=== PATIENT | female | born 1985 ===

== ENCOUNTER → 2020-12-13 15:36 | Outpatient (BNVA) | payer OTHER, SELFPAY | PROVIDERS: PCP Internal Medicine; Visit Provider Physician Assistant ==

== ENCOUNTER → 2020-12-21 09:44 | Outpatient (BNVA) | payer OTHER, SELFPAY | PROVIDERS: PCP Internal Medicine; Visit Provider Surgery ==

== ENCOUNTER 2020-12-23 13:39 | Outpatient (REF) | payer OTHER, SELFPAY ==
--- NOTE | ~2020-12-23 | XR_ITS ---
EXAMINATION: XR CHEST CLINICAL INFORMATION: Obesity COMPARISON: Previous chest x-ray September 2006 TECHNIQUE: 2 views of the chest were obtained. FINDINGS: No significant abnormality is noted involving the heart, lungs, mediastinum, bony thorax or soft tissues. XR/XR chest 2V IMPRESSION: Unremarkable examination.
--- NOTE | 2020-12-23 13:49 | ECG_ITS ---
Test Reason : OBESITY Blood Pressure : / mmHG Vent. Rate : 071 BPM Atrial Rate : 071 BPM P-R Int : 128 ms QRS Dur : 084 ms QT Int : 426 ms P-R-T Axes : -09 011 028 degrees QTc Int : 462 ms Normal sinus rhythm Normal ECG No previous ECGs available Referred By: Imer Rubio Electronically Signed By:NAYELY SUTTON MD
[2020-12-23 14:18] LABS: MANUAL DIFF FLAG NO
[2020-12-23 14:28] LABS: Basophils Absolute Auto 0.1 X10*3/uL (0.0-0.2); Basophils Percent Auto 0.5 % (0-2); Eosinophils Absolute Auto 0.2 X10*3/uL (0.0-0.4); Eosinophils Percent Auto 1.9 % (0-4); Hematocrit 34.3 % (37-47); Hemoglobin 11.2 g/dl (12.0-16.0); Imm Gran Abs Auto 0.02 X10*3/uL (0.00-0.03); Imm Gran Pct Auto 0.2 % (0.0-0.4); Lymphocytes Absolute Auto 4.1 X10*3/uL (1.2-4.9); Lymphocytes Percent Auto 44.1 % (20-40); Mean Corpuscular HGB Conc 32.7 g/dl (31.0-35.0); Mean Corpuscular Hemoglobin 28.4 pg (27.0-33.0); Mean Corpuscular Volume 86.8 fL (80-98); Mean Platelet Volume 9.3 fL (9.4-12.3); Monocytes Absolute Auto 0.4 X10*3/uL (0.1-1.2); Neutrophils Absolute Auto 4.6 X10*3/uL (2.0-8.3); Neutrophils Percent Auto 49.3 % (45-73); Platelet Count 418 X10*3/uL (160-400); Red Blood Count 3.95 X10*6/uL (4.20-5.50); Red Cell Distribution Width 13.4 % (11.0-16.0); White Blood Count 9.3 X10*3/uL (4.8-10.8)
[2020-12-23 14:32] LABS: Estimated Average Glucose 117 mg/dL; Hemoglobin A1c % 5.7 %
[2020-12-23 14:50] LABS: Alanine Aminotransferase 29 U/L (0-31); Albumin Level 4.2 g/dL (3.5-5.0); Alkaline Phosphatase 130 U/L (39-117); Anion Gap 12 (12-20); Aspartate Amino Transferase 18 U/L (5-31); Bilirubin Total 0.4 mg/dL (0.0-1.0); Blood Urea Nitrogen 16 mg/dL (9-16); C Reactive Protein 1.04 mg/dL (< or = 0.50); Calcium 9.4 mg/dL (8.4-10.2); Carbon Dioxide 26 mmol/L (22-29); Chloride 106 mmol/L (96-108); Cholesterol 178 mg/dL; Estimated Glomerular Filt Rate > 60; Glucose Random 85 mg/dL (60-115); HDL Cholesterol 44 mg/dL; Iron 44 mcg/dL (30-160); LDL Cholesterol Calculated 114 mg/dl; Percent Iron Saturation 11 % (15-50); Potassium 4.4 mmol/L (3.3-5.1); Sodium 140 mmol/L (135-145); Total Iron Binding Capacity 402 mcg/dL (228-428); Total Protein 7.4 g/dL (6.5-8.0); Triglycerides 100 mg/dL; Unsaturated Iron Binding 358 ug/dL
[2020-12-23 15:12] LABS: Ferritin 25 ng/mL (10-122); TSH reflex Free T4 1.04 uIU/mL (0.32-4.0); Vitamin D 25-OH Total 9.1 ng/mL (>30)
[2020-12-23 17:27] LABS: Vitamin B12 664 pg/mL (200-900)
[2020-12-24 10:02] LABS: Insulin Level Total 14.7 uIU/mL
[2020-12-24 14:52] LABS: H Pylori Breath Test DETECTED (NOT DETECTED)
[2020-12-26 23:36] LABS: Zinc 74 mcg/dL (60-130)
[2020-12-27 08:02] LABS: Calcium (PTHI) 9.3 mg/dL (8.6-10.2); PTHI 123 pg/mL (14-64)
[2020-12-28 13:27] LABS: Vitamin A 31 mcg/dL (38-98)
[2021-01-05 10:08] LABS: Vitamin B1 8 nmol/L (8-30)
== END 2020-12-23 13:40 | disposition home or self-care (01) ==
LOC: HO.LAB 13:39
PROVIDERS: Physician Assistant; PCP Internal Medicine; Visit Provider Surgery
DX: Z01.818 Encounter for other preprocedural examination (principal); E66.01 Morbid (severe) obesity due to excess calories; Z11.0 Encounter for screening for intestinal infectious diseases
CPT/HCPCS: 36415; 71046; 80053; 80061; 82306; 82607; 82728; 82746; 83013; 83036; 83525; 83540; 83970; 84425; 84443; 84590; 84630; 85025; 86140; 93005

== ENCOUNTER → 2020-12-29 13:58 | Outpatient (BNVA) | payer OTHER, SELFPAY | PROVIDERS: PCP Internal Medicine; Referring Provider Internal Medicine; Visit Provider Physician Assistant ==

== ENCOUNTER → 2021-01-05 13:40 | Outpatient (BNVA) | payer OTHER, SELFPAY | PROVIDERS: PCP Internal Medicine; Visit Provider Physician Assistant ==

== ENCOUNTER 2021-01-09 09:55 | Outpatient (REF) | payer OTHER, SELFPAY ==
--- NOTE | ~2021-01-09 | US_ITS ---
EXAMINATION: US COMPLETE ABDOMEN WITH LIVER ELASTOGRAPHY CLINICAL INFORMATION: Moderate/severe obesity due to excess calories. COMPARISON: None. TECHNIQUE: Real-time imaging of the abdominal viscera. Noninvasive ultrasound liver fibrosis assessment is performed using Lit ElastPQ point quantification shear wave elastography (pSWE) with a C5-2 MHz transducer. Multiple elastography samples are obtained. FINDINGS: PANCREAS: The head and the body of the pancreas are homogeneous in echotexture. The tail is obscured by overlying gas. ABDOMINAL AORTA: The proximal, middle, and distal aortic segments are normal in caliber. INFERIOR VENA CAVA: Visualized portions are normal. LIVER: The liver demonstrates normal size, contour and increased echogenicity. No focal lesion or intrahepatic biliary duct dilatation. The right lobe measures 18.3 cm in length. The left lobe measures 10.5 cm in length. Portal flow is hepatopedal. Shear wave liver elastography median stiffness is 1.34 m/s (reference: normal median stiffness is 1.3 m/s or less). IQR/median stiffness to assess sampling precision is 0.17 (reference: good quality data set is IQR/median stiffness of 0.15 or less). GALLBLADDER: The gallbladder has been surgically removed. COMMON BILE DUCT: Normal in caliber measuring 10.6 cm in diameter. RIGHT KIDNEY: Normal. No hydronephrosis. No renal calculi or focal parenchymal lesions. The kidney measures 14.4 cm in maximum dimension. LEFT KIDNEY: Normal. No hydronephrosis. No renal calculi or focal parenchymal lesions. The kidney measures 12.8 cm in maximum dimension. SPLEEN: Normal. The spleen measures 11.3 cm in maximum dimension. FREE FLUID: None. US/US abdomen comp w elastography IMPRESSION: 1. Diffuse hepatic steatosis without focal lesion. 2. The gallbladder has been surgically removed. 3. Liver elastography: The median stiffness is 1.34 suggestive of high normal. REFERENCE: Society of Radiologists in Ultrasound Liver Stiffness Thresholds (2020): LIVER STIFFNESS THRESHOLDS: *Liver Stiffness equal or less than 1.3 m/s: High probability of being normal. *Liver Stiffness less than 1.7 m/s: In the absence of other known clinical signs, rules out compensated advanced chronic liver disease. *Liver Stiffness 1.7-2.1 m/s: Suggestive of compensated advanced chronic liver disease but need further test for confirmation. *Liver Stiffness over 2.1 m/s: Rules in compensated advanced chronic liver disease. *Liver Stiffness over 2.4 m/s: Suggestive of clinically significant portal hypertension. QUALITY OF DATA SET: *IQR/Median value equal or less than 0.15 implies a quality data set. *IQR/Median value over 0.15 implies a poor quality data set. SIGNIFICANT CHANGE FROM PRIOR EXAM: Significant change if liver stiffness measurement is 10% or greater from prior exam. OTHER CONSIDERATIONS: The stage of liver fibrosis may be overestimated in the setting of acute hepatitis, liver inflammation, elevated liver function tests, hepatic vascular congestion, obstructive cholestasis, non-fasting state, and infiltrative diseases such as amyloidosis and lymphoma. In some patients with NAFLD, the liver stiffness thresholds for compensated advanced chronic liver disease may be lower. In causes other than viral hepatitis and NAFLD, liver stiffness thresholds are not well established.
--- NOTE | ~2021-01-09 | FL_ITS ---
EXAMINATION: XR GI SERIES CLINICAL INFORMATION: Obesity COMPARISON: None TECHNIQUE: Upper GI was performed using thin and thick barium and effervescent granules. MAZA dimension 5 to 10 minutes was performed for visualization of the duodenum. FINDINGS: Esophageal motility is normal. No hiatal hernia or reflux is seen. There is slightly delayed gastric emptying. The duodenum was not visualized on early fluoroscopic images. The duodenum is visualized on 5 to 10 minute MAZA imaging and appears normal. No mass, ulcer, fold thickening or stricture is seen. FLUOROSCOPY TIME: 0.7 minutes DOSE AREA PRODUCT: 10 clarke per centimeter squared. 21 saved fluoroscopic images. FL/FL upper GI series IMPRESSION: Slightly delayed gastric emptying otherwise unremarkable exam.
== END 2021-01-09 09:56 | disposition home or self-care (01) ==
LOC: HO.US 09:55
PROVIDERS: Visit Provider Surgery
DX: Z01.818 Encounter for other preprocedural examination (principal); E66.01 Morbid (severe) obesity due to excess calories; K21.9 Gastro-esophageal reflux disease without esophagitis
CPT/HCPCS: 74240; 76705; 76981

== ENCOUNTER → 2021-01-13 08:02 | Outpatient (BNVA) | payer OTHER, SELFPAY | PROVIDERS: PCP Internal Medicine; Visit Provider Surgery ==

== ENCOUNTER → 2021-01-18 08:25 | Outpatient (BNVA) | payer OTHER, SELFPAY | PROVIDERS: PCP Internal Medicine; Visit Provider Dietitian, Registered | DX: E66.01 Morbid (severe) obesity due to excess calories (principal); Z68.42 Body mass index [BMI] 45.0-49.9, adult | CPT/HCPCS: 97802 ==

== ENCOUNTER → 2021-01-19 12:57 | Outpatient (BNVA) | payer OTHER, SELFPAY | PROVIDERS: PCP Internal Medicine; Visit Provider Physician Assistant ==

== ENCOUNTER → 2021-01-27 14:59 | Outpatient (BNVA) | payer OTHER, SELFPAY | PROVIDERS: PCP Internal Medicine; Visit Provider Physician Assistant ==

== ENCOUNTER → 2021-02-03 13:55 | Outpatient (BNVA) | payer OTHER, SELFPAY | PROVIDERS: PCP Internal Medicine; Visit Provider Physician Assistant ==

== ENCOUNTER → 2021-02-07 08:11 | Outpatient (BNVA) | payer OTHER, SELFPAY | PROVIDERS: PCP Internal Medicine; Visit Provider Dietitian, Registered ==

== ENCOUNTER → 2021-02-10 06:49 | Outpatient (BNVA) | payer OTHER, SELFPAY | PROVIDERS: PCP Internal Medicine; Visit Provider Surgery ==

== ENCOUNTER 2021-03-10 15:03 | Outpatient (REF) | payer OTHER, SELFPAY ==
[2021-03-11 13:42] LABS: H Pylori Breath Test DETECTED (NOT DETECTED)
== END 2021-03-10 15:04 | disposition home or self-care (01) ==
LOC: HO.LNP 15:03
PROVIDERS: PCP Internal Medicine; Visit Provider Physician Assistant
DX: E66.01 Morbid (severe) obesity due to excess calories (principal); B96.81 Helicobacter pylori [H. pylori] as the cause of diseases classified elsewhere; K27.9 Peptic ulcer, site unspecified, unspecified as acute or chronic, without hemorrhage or perforation
CPT/HCPCS: 83013

== ENCOUNTER → 2021-03-14 08:10 | Outpatient (BNVA) | payer OTHER, SELFPAY | PROVIDERS: PCP Internal Medicine; Visit Provider Dietitian, Registered ==

== ENCOUNTER → 2021-03-17 07:32 | Outpatient (BNVA) | payer OTHER, SELFPAY | PROVIDERS: PCP Internal Medicine; Visit Provider Surgery ==

== ENCOUNTER → 2021-03-20 08:14 | Outpatient (BNVA) | payer OTHER, SELFPAY | PROVIDERS: PCP Internal Medicine; Visit Provider Dietitian, Registered | DX: E66.01 Morbid (severe) obesity due to excess calories (principal); Z68.42 Body mass index [BMI] 45.0-49.9, adult | CPT/HCPCS: 97803 ==

== ENCOUNTER 2021-04-05 13:46 | Outpatient (REF) | payer OTHER, SELFPAY ==
[2021-04-06 14:56] LABS: H Pylori Breath Test NOT DETECTED (NOT DETECTED)
== END 2021-04-05 13:47 | disposition home or self-care (01) ==
LOC: CF 13:46
PROVIDERS: Visit Provider Physician Assistant
DX: A04.8 Other specified bacterial intestinal infections (principal)
CPT/HCPCS: 83013

== ENCOUNTER → 2021-04-17 07:27 | Outpatient (BNVA) | payer OTHER, SELFPAY | PROVIDERS: Visit Provider Surgery ==

== ENCOUNTER → 2021-04-24 07:08 | Outpatient (BNVA) | payer OTHER, SELFPAY | PROVIDERS: Visit Provider Surgery ==

== ENCOUNTER → 2021-04-28 13:25 | Outpatient (BNVA) | payer OTHER, SELFPAY | PROVIDERS: PCP Internal Medicine; Visit Provider Physician Assistant ==

== ENCOUNTER 2021-05-04 06:11 | Inpatient (IN) | payer OTHER, SELFPAY ==
[2021-04-25 13:11] VITALS: BMI 46.0
[2021-04-25 13:24] LABS: MANUAL DIFF FLAG NO
[2021-04-25 13:33] LABS: INTERNATIONAL NORM RATIO 1.1 (0.9-1.1); Prothrombin Time 12.3 SEC (9.9-13.0)
[2021-04-25 13:34] LABS: Basophils Absolute Auto 0.1 X10*3/uL (0.0-0.2); Basophils Percent Auto 0.5 % (0-2); Eosinophils Absolute Auto 0.2 X10*3/uL (0.0-0.4); Eosinophils Percent Auto 1.8 % (0-4); Hematocrit 34.8 % (37-47); Hemoglobin 11.3 g/dl (12.0-16.0); Imm Gran Abs Auto 0.02 X10*3/uL (0.00-0.03); Imm Gran Pct Auto 0.2 % (0.0-0.4); Lymphocytes Absolute Auto 4.3 X10*3/uL (1.2-4.9); Lymphocytes Percent Auto 43.3 % (20-40); Mean Corpuscular HGB Conc 32.5 g/dl (31.0-35.0); Mean Corpuscular Hemoglobin 26.8 pg (27.0-33.0); Mean Corpuscular Volume 82.7 fL (80-98); Mean Platelet Volume 9.7 fL (9.4-12.3); Monocytes Absolute Auto 0.5 X10*3/uL (0.1-1.2); Monocytes Percent Auto 4.7 % (2-11); Neutrophils Percent Auto 49.5 % (45-73); Platelet Count 399 X10*3/uL (160-400); Red Blood Count 4.21 X10*6/uL (4.20-5.50)
[2021-04-25 13:36] LABS: Partial Thromboplastin Time 33.7 SEC (24.1-38.0)
[2021-04-25 13:49] LABS: Alanine Aminotransferase 22 U/L (0-31); Albumin Level 4.1 g/dL (3.5-5.0); Alkaline Phosphatase 95 U/L (39-117); Anion Gap 9 (12-20); Aspartate Amino Transferase 13 U/L (5-31); Bilirubin Total 0.7 mg/dL (0.0-1.0); Blood Urea Nitrogen 11 mg/dL (9-16); C Reactive Protein 0.67 mg/dL (< or = 0.50); Calcium 9.3 mg/dL (8.4-10.2); Carbon Dioxide 25 mmol/L (22-29); Chloride 108 mmol/L (96-108); Cholesterol 136 mg/dL; Estimated Glomerular Filt Rate > 60; Glucose Random 87 mg/dL (60-115); HDL Cholesterol 48 mg/dL; LDL Cholesterol Calculated 72 mg/dl; Potassium 4.3 mmol/L (3.3-5.1); Sodium 138 mmol/L (135-145); Total Protein 7.1 g/dL (6.5-8.0); Triglycerides 80 mg/dL
[2021-04-25 14:06] LABS: TSH reflex Free T4 1.42 uIU/mL (0.32-4.0)
[2021-04-25 14:30] LABS: Estimated Average Glucose 111 mg/dL; Hemoglobin A1c % 5.5 %
[2021-04-26 22:36] LABS: Insulin Level Total 12.1 uIU/mL
--- NOTE | 2021-05-03 07:55 | P.CONAN_ITS ---
Documented by User: Tanisha Veliz NP 05/03/21 07:56 HPI - Anesthesia Eval Consult details Narrative: 36yo F for Gastrectomy Sleeve, EGD, Poss Diaphragmatic Hernia, Poss Ventral Hernia, Poss open PMFSH Active Problems Active Problems: All Active Problems (Updated 04/25/21 @ 13:10 by Kari De Leon RN) Pre-op evaluation (Acute) Anemia (Acute) Vitamin D deficiency (Acute) Vitamin A deficiency (Acute) H pylori ulcer (Acute) H. pylori infection (Acute) Adjustment disorder, unspecified (Acute) DJD (degenerative joint disease) (Acute) Morbid obesity (Acute) Past Medical History Medical History COVID-19 vaccine series completed DJD (degenerative joint disease) Morbid obesity PONV (postoperative nausea and vomiting) Family History Family History Mother Diabetes Father No problems noted. Sister No problems noted. Sister No problems noted. Brother No problems noted. Brother No problems noted. Son No problems noted. Daughter No problems noted. Daughter No problems noted. Daughter No problems noted. Surgical History Surgical History Hx of cholecystectomy Hx of tubal ligation Social History Social History Are you a primary rn progressive care unit to a significant other at home: No Do you presently have visiting nurse or other home services: No Alcohol intake: current Alcohol intake frequency: holidays/special occasions only Patient Tobacco Use Status: Former Tobacco user Quit Date: age 17 Tobacco use type: Cigarette Use of substances other than those prescribed or required for medical reasons: No Have you been hit, kicked, punched, or otherwise hurt by someone within the past year? If so, by whom?: No Are you DNR?: No Advance Directives: No Advance Directives Information Provided: Yes Advance Directives on File: No Recently lost weight without trying: No How much weight loss: 34pounds or more Eating poorly because of decreased appetite: No Nutrition screen score: 4 Nutrition Risks: No Nutritional Risk Patient : No FDLMP: 04/07/21 : No Meds Allergies Allergy/AdvReac Type Severity Reaction Status Date / Time latex [Latex] Allergy Unknown ITCHY RASH Verified 04/25/21 12:15 Exam Exam Date and Time: May 03, 2021 0755 Height,Weight and Vital Signs: Height 5 ft 2 in Weight 114.305 kg Pertinent Lab Results Pertinent Lab Results: Laboratory Tests 04/25/21 04/25/21 04/25/21 12:50 12:50 12:50 WBC 10.0 RBC 4.21 Hgb 11.3 L Hct 34.8 L MCV 82.7 MCH 26.8 L MCHC 32.5 RDW 14.0 Plt Count 399 MPV 9.7 Immature Gran % (Auto) 0.2 Neut % (Auto) 49.5 Lymph % (Auto) 43.3 H Cavalier % (Auto) 4.7 Eos % (Auto) 1.8 Baso % (Auto) 0.5 Lymph # (Auto) 4.3 Cavalier # (Auto) 0.5 Eos # (Auto) 0.2 Baso # (Auto) 0.1 Abs Immat Gran (auto) 0.02 Absolute Neuts (auto) 5.0 Absolute Nucleated RBC 0.000 Nucleated RBC % (auto) 0.0 PT 12.3 INR 1.1 APTT 33.7 Sodium 138 Potassium 4.3 Chloride 108 Carbon Dioxide 25 Anion Gap 9 L BUN 11 Creatinine 0.60 Estim Creat Clear Calc 158.0 Estimated GFR > 60 Random Glucose 87 Estimat Average Glucose Hemoglobin A1c % Total Insulin Calcium 9.3 Total Bilirubin 0.7 AST 13 ALT 22 Alkaline Phosphatase 95 D C-Reactive Protein 0.67 H Total Protein 7.1 Albumin 4.1 Triglycerides 80 Cholesterol 136 D LDL Cholesterol, Calc 72 HDL Cholesterol 48 TSH 1.42 Blood Type Antibody Screen 04/25/21 04/25/21 04/25/21 12:50 12:50 12:50 WBC RBC Hgb Hct MCV MCH MCHC RDW Plt Count MPV Immature Gran % (Auto) Neut % (Auto) Lymph % (Auto) Cavalier % (Auto) Eos % (Auto) Baso % (Auto) Lymph # (Auto) Cavalier # (Auto) Eos # (Auto) Baso # (Auto) Abs Immat Gran (auto) Absolute Neuts (auto) Absolute Nucleated RBC Nucleated RBC % (auto) PT INR APTT Sodium Potassium Chloride Carbon Dioxide Anion Gap BUN Creatinine Estim Creat Clear Calc Estimated GFR Random Glucose Estimat Average Glucose 111 Hemoglobin A1c % 5.5 Total Insulin 12.1 Calcium Total Bilirubin AST ALT Alkaline Phosphatase C-Reactive Protein Total Protein Albumin Triglycerides Cholesterol LDL Cholesterol, Calc HDL Cholesterol TSH Blood Type O Positive Antibody Screen NEGATIVE Narrative Narrative: EKG 11/2020 Vent. Rate : 071 BPM ? ? Atrial Rate : 071 BPM ?? P-R Int : 128 ms? QRS Dur : 084 ms ? ? QT Int : 426 ms ? ? ? P-R-T Axes : -09 011 028 degrees ?? QTc Int : 462 ms ? Normal sinus rhythm Normal ECG No previous ECGs available Assessment and Plan Assessment Anesthesia Assessment: Chart Reviewed Documented by User: Carin Biggs MD 05/04/21 07:26 [facility] Past Medical History Medical History COVID-19 vaccine series completed DJD (degenerative joint disease) Morbid obesity PONV (postoperative nausea and vomiting) Family History Family History Mother Diabetes Father No problems noted. Sister No problems noted. Sister No problems noted. Brother No problems noted. Brother No problems noted. Son No problems noted. Daughter No problems noted. Daughter No problems noted. Daughter No problems noted. Surgical History Surgical History Hx of cholecystectomy Hx of tubal ligation History of Problems with Anesthesia: No Social History Social History Are you a primary rn progressive care unit to a significant other at home: No Do you presently have visiting nurse or other home services: No Alcohol intake: current Alcohol intake frequency: holidays/special occasions only Patient Tobacco Use Status: Former Tobacco user Quit Date: age 17 Tobacco use type: Cigarette Use of substances other than those prescribed or required for medical reasons: No Have you been hit, kicked, punched, or otherwise hurt by someone within the past year? If so, by whom?: No Are you DNR?: No Advance Directives: No Advance Directives Information Provided: Yes Advance Directives on File: No Recently lost weight without trying: No How much weight loss: 34pounds or more Eating poorly because of decreased appetite: No Nutrition screen score: 4 Nutrition Risks: No Nutritional Risk Patient : No FDLMP: 04/07/21 : No Meds Allergies Allergy/AdvReac Type Severity Reaction Status Date / Time latex [Latex] Allergy Unknown ITCHY RASH Verified 04/25/21 12:15 Exam Airway Mallampati Class: II TM Dist: >3cm Neck ROM: Full Loose/Missing/Broken Teeth: No Heart: RRR Lungs: CTA Assessment and Plan Assessment Anesthesia Assessment: Anesthesia Plan Discussed Final Anesthetic Review History of Problems with Anesthesia: No NPO: Yes ASA Class: III Final Preanesthetic Review: Meds/Allgs Chart Reviewed, Consent Obtained/Reviewed and Anes Risks/Benef Reviewed Patient Risk: Intermediate Procedure Risk: Intermediate Anesthetic Plan Anesthetic Plan: GA Disposition: Standard PACU
--- NOTE | 2021-05-03 22:34 | MHC.SHP ---
Pre-Procedural Eval Section A Date of Service: 05/03/21 The patient is an INPATIENT: Yes The History & Physical has been completed within 30 days and I have reviewed it.: Yes Section B Chief Complaint: Morbid Severe Obesity Relevant Family History (Specify if Yes): No Relevant Social History: None Present Medications: see Short Stay Collaborative assessment Medical History: No relevant PMH History of Previous Operations: No relevant previous surgery Allergies: Allergies Allergy/AdvReac Type Severity Reaction Status Date / Time latex [Latex] Allergy Unknown ITCHY RASH Verified 04/25/21 12:15 Review of Systems Sugical H&P ROS: Negative: Constitution, Cardiovascular, Respiratory, Neurological, Psychiatric, Hem-Onc, Allergic/Immunologic, Gastrointestinal, Genitourinary, Musculoskeletal, Integumentary, Endocrine and Eyes/Ears/Nose/Throat Exam Surgical H&P Exam: Normal: HEENT, Normal: Heart, Normal: Lungs, Normal: Extremities, Normal: Abdomen, Normal: Skin and Normal: Neurological Plan Diagnosis/Plan: Unchanged I have reviewed the history and physical and performed a pertinent physical examination on my patient. No changes have occurred unless specified.
[2021-05-04] VITALS (20 sets, daily range): BP systolic 103–166; BP diastolic 56–94; PULSE 68–94; RESP 12–18; TEMP 36.2–36.9; O2SAT 96–100
[2021-05-04 06:51] LABS: COVID-19 Test Negative (Negative); IDNOW Serial# 55D5AD1C
[2021-05-04] MEDS: Lactated Ringers 1,000 ML 999 ML IV (07:03)
[2021-05-04] MEDS: Lactated Ringers 1,000 ML 100 ML IVCONT (07:03)
[2021-05-04] MEDS: Scopolamine 1.5 MG PATCH.TD.3 TRANSDERMA (07:07)
--- NOTE | 2021-05-04 10:19 | PM.OP ---
Brief Operative Note Date of Service: 05/04/21 Pre-op diagnosis: Morbid obesity and comorbidities (see below) Post-op diagnosis: same (& Diaphragmatic hernia) Procedure: INITIAL PATIENT BMI ON PRESENTATION AT OUR OFFICE: 52 kg/m2 LAST BMI BEFORE SURGERY: 46.7 kg/m2 COMORBIDITIES: DJD, gestational diabetes, liver steatosis The patient participated in an intensive weekly lifestyle ?intervention and exercise program during which the patient ?has lost between the initial office visit and the last preoperative visit 30.4lbs, or 10.7% of initial actual body weight. The patient met the BMI-criteria for bariatric surgery based on the BMI on initial presentation. The patient should not be penalized for achieving such weight loss because ?it is not sustainable long-term without surgical intervention and it was achieved in preparation for bariatric surgery ?under my direction and based on my published research ([email or web address]) ?that a 10% preoperative weight loss improves long-term weight loss after surgery and reduces perioperative complications.? Insurance carriers such as [facility] have endorsed my recommendations ?and have included in their policies criteria to include a 10% preoperative weight loss requirement. PROCEDURE: Esophago-gastroscopy, laparoscopic repair of incarcerated diaphragmatic hernia, laparoscopic sleeve gastrectomy and laparoscopic gastropexy INDICATIONS: This is a 53 year-old female who was electively scheduled for laparoscopic, possibly open sleeve gastrectomy. The risks and complications of the procedure were discussed with the patient in advance, particularly the possibility of ; pulmonary embolism; staple line leak; bleeding; GERD; cardiac, pulmonary, or renal complications; as well as long-term problems such as insufficient weight loss, vitamin deficiency, strictures, or ulcers. The patient understood all the risks, and was in agreement to proceed with surgery. DESCRIPTION OF PROCEDURE: After informed consent was obtained from the patient, the patient was given preoperative antibiotics, and was transferred to the operating room. After successful induction of general anesthesia, pneumatic compressive devices were placed on both lower extremities. An upper endoscopy was performed next. The oropharynx and esophagus appeared to be within normal limits. There was a diaphragmatic hernia present of moderate size that was not reported at the preoperative upper GI. The stomach was entered. Then after all fluid and air were suctioned and the stomach was fully decompressed, the scope was withdrawn and secured in the mid esophagus. The patient was then prepped and draped in the usual sterile manner, and abdominal access was established at the right upper quadrant with the Nikko technique. A 12 mm blunt port was inserted, and the abdomen was insufflated with CO2 to a pressure of 15 mmHg. Under direct visualization, additional ports were placed, specifically two 5 mm Versi-step ports to the left upper quadrant, and a 5 mm Versi-Step port to the right upper quadrant. 1% lidocaine plain was used to infiltrate all port sites as well as all fascia defects. Following that, the patient was placed in a steep reverse Trendelenburg position. An additional 5 mm port was placed to the right flank for the Mediflex retractor that was used to retract the left lobe of the liver. The gastro-esophageal fat pad was opened with the ultrasonic device (Thunderbeat, Olympus) and the anterior esophagus and hiatus were exposed. The angle of His was opened with the ultrasonic device the fundus of the stomach from any diaphragmatic and splenic attachments. I then opened the gastrocolic ligament between the transverse colon and the greater curvature of the stomach with the ultrasonic device to enter the lesser sac and facilitate the ligation of the short gastric vessels. I started at a mid-point along the greater curvature and using the Thunderbeat, all short gastric vessels were divided all the way to the angle of His until the left estiven was completely dissected at its entirety. I then divided the gastro-colic ligament distally to a distance of about 3-4 cm proximal to the esophagus. There was an obvious significant-sized hiatal hernia. I continued dissecting along the hiatus toward the left estiven and the angle of His. I fully mobilized the fat pad that was incarcerated in the hernia. I then continued by dissecting even further into the posterior retro-esophageal space all the way to the angle of His. I continued to mobilize the esophagus into the mediastinum circumferentially. Both vagal nerves were seen and preserved. At that point, I was able to have at least 3 to 5 cm of esophagus into the abdomen.? After I completely mobilized the esophagus from both the left and right estiven and I had a good mobilization of the esophagus circumferentially, I closed the hernia defect with three interrupted #0 Surgidac sutures using the Endo Stitch device, two of which were placed posterior and one anterior to the esophagus. ? The stomach was then divided transversely with one Endo SOPHIE-45 purple, one SOPHIE-45 orange and five SOPHIE-60 articulating orange loads using the AEON stapler and loads. Every effort was made that the gastric sleeve had a tubular shape and an even caliber throughout. Once the sleeve resection was completed, the staple line of the gastric sleeve was reinforced with Hemoclips. The resected stomach was retrieved without difficulty from the Nikko port. A gastropexy was then performed in order to prevent postoperative GERD and partial gastric volvulus. Several interrupted 2.0 Surgidac sutures were placed between the sleeve's staple line and the previously divided greater omentum and gastro-colic ligament using the Endo-Stitch device. ?An upper endoscopy was performed. There was no narrowing at the GE junction. The scope was easily advanced all the way to the pylorus which was clearly visualized. There was no narrowing anywhere and the sleeve's caliber was even throughout. The sleeve's staple line was inspected and there was no evidence of ischemia, bleeding or dehiscence. At that point the gastroscope was withdrawn from the patient?s mouth while we were decompressing the bowel and the stomach from any remaining air. I looked into the lesser sac to see how the sleeve was situating and it was situating well. There was no bleeding from the staple line, spleen, or short gastric vessels. The Mediflex retractor was removed, and the undersurface of the liver was inspected and there was no bleeding. The patient was placed in supine position. I closed the fascial defect of the 12 mm port site with a figure of eight #1 Polysorb suture. Then 100 cc 0.25 % Marcaine plain with 10 mg of Dexamethasone were used to infiltrate the fascial closure as well as all skin incisions. At this point, the abdomen was deflated, all ports were removed under direct vision, and no bleeding was noted from any of the port sites. The skin incisions were irrigated with saline and were closed with 4-0 absorbable monofilament sutures. Steri-Strips and OpSites were used to cover all incisions. The patient was extubated and was transferred in stable condition to the recovery room for further care. I was present and performed all gonzalez parts of the procedure. Ms. Hollandson was the therapist's assistant. There were no residents to assist with this case. Rodríguez Rubio MD, PhD, FACS Surgeon: Imer Rubio MD Anesthesia: GETA, local and other (TAP block) Was an Park Recreation Manager used for this Procedure?: Yes Park Recreation Manager: Cailin Lopez Estimated blood loss (mL): 10 IV fluids (mL): 3,000 Urine output (mL): 0 (No Bautista to record) Pathology: other (Stomach) Condition: stable Disposition: PACU
--- NOTE | 2021-05-04 10:21 | P.DS_ITS ---
DS: Providers Provider Date of Service: 05/05/21 Date of admission: 05/04/21 06:11 Primary care physician: Elizabeth Yeboah MD DS: Summary Hospital Course Hospital Course: ADMITTING DIAGNOSIS: morbid obesity, DJD DISCHARGE DIAGNOSIS: same, s/p laparoscopic sleeve gastrectomy and repair diaphragmatic hernia PAST SURGICAL HISTORY: lap obdulia, tubal ligation PROCEDURE: upper endoscopy, laparoscopic sleeve gastrectomy and repair of diaphragmatic hernia hernia DISCHARGE SUMMARY: History of Present Illness: The patient is a 36 year-old woman with a BMI of 51.9kg/m2 and associated co- morbidities as described above. The patient had extensive work-up,lost 28.4 lbs preoperatively and was electively scheduled for laparoscopic, possible open sleeve gastrectomy and gastropexy. Risks and complications of the surgery were discussed with the patient in advance, particularly the possibility of , pulmonary embolism, anastomotic leak, bleeding, bowel injury, GERD, cardiac, renal or pulmonary complications. The patient understood all the risks and was in agreement with the surgical plan. Hospital Course: The patient underwent an uneventful laparoscopic sleeve gastrectomy with gastropexy and repair of diaphragmatic hernia on the day of admission. Postoperatively, the patient was transferred to the surgical floor. The patient received IV Acetaminophen and IV dilaudid for pain control. Patient was started on bariatric phase 1 diet POD #0. On postoperative day one, the patient was feeling well without nausea, vomiting, fevers, or tachycardia. The patient had some mild incisional pain and the abdomen was soft. On the morning of postoperative day one, the patient was continued on 1 ounce of water or ice every half hour. During the day, the patient did fairly well, having some incisional pain, but able to ambulate adequately and to tolerate liquids well. Since the patient is doing well, we decided that the patient was ready to be discharged. The patient was given instructions to follow-up with me next week and to call my office for any fever over 101, persistent abdominal pain, nausea, vomiting, GERD, symptoms of DVT such as calf tenderness, or leg swelling, or pulmonary embolism such as chest pain or shortness of breath. The patient was also instructed to drink 40-60 ounces of liquids per day using the 1-ounce cups. The patient had been given prescriptions for Tylenol for pain, Zofran prn for nausea, and pantoprazole and carafate previously. The patient was encouraged to ambulate and use the incentive spirometer. The patient was allowed to shower, but no baths, and encouraged to stay active at home. All of these instructions were given to the patient personally. All questions were answered and the patient understood all instructions, the instructions were also given to the patient in print. Time Spent with Patient Time attestation: Total time spent providing and/or coordinating discharge services: Discharge coordination time: Less than 30 minutes Quality: Stroke Does the patient have a stroke diagnosis?: No Physical Exam Vital Signs: Vital Signs: Last Vital Signs Temp 98.4 F 05/04/21 10:15 Pulse 94 05/04/21 10:15 Resp 12 05/04/21 10:15 BP 114/62 05/04/21 10:15 Pulse Ox 97 05/04/21 06:37 Body Mass Index 46.0 DS: Data Data Completed and Pending Pending studies at discharge: Pending at discharge 05/04/21 09:21 Surgical [PTH] Routine Labs on day of discharge: Laboratory Results - last 24 hr 05/04/21 06:21 COVID-19 ([facility]E) Negative COVID-19 Clin Com See Note Discharge Plan Discharge Anticipated Discharge Date/Time: 05/05/21 10:18 Patient Disposition: Home, Self-Care Discharge Diagnosis: s/p sleeve gastrectomy Referrals: Elizabeth Yeboah MD [Primary Care Provider] - 1 Week Discharge Medications: Continued pantoprazole 40 mg tablet,delayed release (DR/EC) 40 mg PO DAILY Qty: 30 RF: 2 sucralfate 100 mg/mL suspension 10 ml PO BID Qty: 400 RF: 2 ondansetron HCl [Zofran] 4 mg tablet 4 mg PO Q12H Qty: 20 RF: 0 Discontinued Vitron-C 65 mg iron- 125 mg tablet,delayed release (DR/EC) 1 tab PO DAILY Qty: 30 RF: 2 cholecalciferol (vitamin D3) 125 mcg (5,000 unit) capsule 125 mcg PO DAILY Qty: 30 RF: 2 vitamin A palmitate 10,000 unit capsule 10,000 unit PO .COMPLEX Qty: 30 RF: 2 polyethylene glycol 3350 [Miralax] 17 gram powder in packet 17 g PO DAILY Qty: 14 RF: 0 Discharge Orders: Discharge Order (Routine); Ordered 05/05/21 Ordered By: Imer Rubio Diet: other Activity on Discharge: No heavy lifting Stand Alone Forms: Patient Portal Discharge page Care Plan Goals: weight loss Health Concerns: morbid obesity Plan of Treatment: No tub baths, sex or returning to work until discussed at first post op appointment. No exercise, alcohol, tobacco or illegal drug use. Continue to use incentive spirometer hourly while awake. Walk in home for 5- 10 minutes every 2 hours during the first week. Continue phase 1 diet today and start phase 2 diet tomorrow morning. Follow all instructions in the bariatric handbook and call with any questions. The patient's medical history has been reviewed and they are considered low risk for post op DVT and therefore DVT prophylaxis is not considered necessary. Travel after surgery was reviewed. The patient has not disclosed any travel plans during the first 30 days after surgery and they have been advised that within the first 30 days after surgery any bus, plane, train or car travel over 2 hours in duration is contraindicated due to the possibility of developing blood clots from immobility. Any travel, needs to include periods of ambulation of 10 minutes in duration every 2 hours. The patient was instructed to discuss any plans for travel during this period with their bariatric surgeon. Assessment: stable, post op sleeve gastrectomy Discharge Date/Time: 05/05/21 10:25
[2021-05-04] MEDS: Famotidine/PF 20 MG/2 ML VIAL IVPUSH ×2 (10:26→20:27)
--- NOTE | 2021-05-04 10:26 | PM.PNGS ---
Subjective Subjective Date of Service: 05/05/21 Interval history: Patient has mild incisional pain, but was able to ambulate and use the incentive spirometer. She is tolerating phase 1 bariatric diet Physical Exam Vital Signs: Vital Signs: Last Vital Signs Temp 98.4 F 05/04/21 10:15 Pulse 88 05/04/21 10:20 Resp 14 05/04/21 10:20 BP 122/64 05/04/21 10:20 Pulse Ox 99 05/04/21 10:20 Body Mass Index 46.0 GI: Inspection: Yes normal to inspection and Yes incision (clean, dry and intact) Extrem: Right lower extremity: normal to inspection (no calf tenderness) Left lower extremity: normal to inspection (no calf tenderness) Procedures Date of Service Date of Service: 05/05/21 Progress Note: A&P Assessment and plan (1) Morbid obesity: Status: Acute (2) S/P laparoscopic sleeve gastrectomy: Status: Acute Assessment and Plan: s/p laparoscopic sleeve gastrectomy, repair of diaphragmatic hernia, and gastropexy Doing well Check am labs. If OK, will discharge home? (3) Status post repair of paraesophageal diaphragmatic hernia: Status: Acute (4) Diaphragmatic hernia: Status: Acute (5) DJD (degenerative joint disease): Status: Acute (6) Steatosis, liver: Status: Acute Fall Risk Details Current Medications: Current Medications Generic Name Dose Route Start Last Admin Trade Name Freq PRN Reason Stop Dose Admin Albuterol Sulfate 2.5 mg 05/04/21 07:27 Albuterol Sulfate (0.083%) 2.5 Mg/3 Ml Vial.Neb INHALE ONCE PRN Wheezing Famotidine 20 mg 05/04/21 10:30 Famotidine/Pf 20 Mg/2 Ml Vial IVPUSH BID LLUVIA Fentanyl 50 mcg 05/04/21 07:27 Fentanyl Citrate/Pf 100 Mcg/2 Ml Vial IVPUSH Q5M PRN Pain, Severe (Pain Scale 7-10) Protocol Fentanyl 25 mcg 05/04/21 07:27 Fentanyl Citrate/Pf 100 Mcg/2 Ml Vial IVPUSH Q5M PRN Pain, Moderate (Pain Scale 4-6 Protocol Hydromorphone HCl 0.5 mg 05/04/21 07:27 Hydromorphone Hcl 0.5 Mg/0.5 Ml Syringe IVPUSH Q5M PRN Pain, Severe (Pain Scale 7-10) Protocol Hydromorphone HCl 0.25 mg 05/04/21 07:27 Hydromorphone Hcl 0.5 Mg/0.5 Ml Syringe IVPUSH Q5M PRN Pain, Severe (Pain Scale 7-10) Protocol Lactated Ringer's 1,000 mls @ 100 mls/hr 05/04/21 06:30 05/04/21 07:03 Lr IVCONT 100 mls/hr .Q10H LLUVIA Administration Promethazine HCl 12.5 mg/ 50.5 mls @ 202 mls/hr 05/04/21 07:27 Sodium Chloride IV ONCE PRN Nausea and Vomiting Lactated Ringer's 1,000 mls @ 125 mls/hr 05/04/21 10:19 Lr IVCONT .Q8H LLUVIA Ondansetron HCl 4 mg 05/04/21 07:27 Ondansetron Hcl 4 Mg/2 Ml Vial IVPUSH ONCE PRN Nausea and Vomiting Oxycodone HCl 10 mg 05/04/21 07:27 Oxycodone Hcl Immed Release 5 Mg Tablet PO ONCE PRN Pain, Severe (Pain Scale 7-10) Oxycodone HCl 5 mg 05/04/21 07:27 Oxycodone Hcl Immed Release 5 Mg Tablet PO ONCE PRN Pain, Severe (Pain Scale 7-10) Time Spent With Patient Time: Total time spent is greater than 50% in coordination of care (as documented) at patient's floor/unit and/or counseling patient: Time with patient: less than 15 minutes Quality Stroke Does the patient have a stroke diagnosis?: No VTE Prior VTE?: No VTE Risk Level:: Surgical - moderate VTE Device Contraindication: N/A - Device Ordered VTE Drug Contraindication: Treatment Not Indicated
[2021-05-04] MEDS: HYDROmorphone HCl 0.5 MG/0.5 ML SYRINGE IVPUSH (10:36)
[2021-05-04 10:40] LABS: Hematocrit 38.6 % (37-47); Hemoglobin 12.5 g/dl (12.0-16.0)
[2021-05-04 10:56] LABS: Anion Gap 14 (12-20); Blood Urea Nitrogen 8 mg/dL (9-16); Calcium 8.6 mg/dL (8.4-10.2); Carbon Dioxide 19 mmol/L (22-29); Chloride 109 mmol/L (96-108); Creatinine Clr Calc Pharmacy 133.5; Estimated Glomerular Filt Rate > 60; Glucose Random 152 mg/dL (60-115); Potassium 4.3 mmol/L (3.3-5.1); Sodium 138 mmol/L (135-145)
[2021-05-04] MEDS: Lactated Ringers 1,000 ML 125 ML IVCONT ×2 (11:06→19:36)
[2021-05-04] MEDS: ceFAZolin Sodium/Dextrose,Iso 2 GM/50 ML PIGGYBACK IV (13:12)
[2021-05-04] MEDS: ondansetron HCL 4 MG/2 ML VIAL IVPUSH ×2 (13:54→20:27)
[2021-05-05] VITALS: BP 139/76; PULSE 80; RESP 16; TEMP 36.2; O2SAT 95
[2021-05-05] MEDS: ondansetron HCL 4 MG/2 ML VIAL IVPUSH ×2 (02:29→07:39)
[2021-05-05] MEDS: Lactated Ringers 1,000 ML 125 ML IVCONT (02:32)
[2021-05-05 04:00] VITALS: BP 141/86; PULSE 71; RESP 16; TEMP 37.2; O2SAT 96
[2021-05-05 05:42] LABS: MANUAL DIFF FLAG NO
[2021-05-05 05:45] LABS: Basophils Percent Auto 0.2 % (0-2); Hematocrit 35.1 % (37-47); Hemoglobin 11.6 g/dl (12.0-16.0); Imm Gran Abs Auto 0.02 X10*3/uL (0.00-0.03); Imm Gran Pct Auto 0.2 % (0.0-0.4); Lymphocytes Absolute Auto 2.6 X10*3/uL (1.2-4.9); Lymphocytes Percent Auto 23.3 % (20-40); Mean Corpuscular Hemoglobin 26.9 pg (27.0-33.0); Mean Corpuscular Volume 81.3 fL (80-98); Mean Platelet Volume 10.1 fL (9.4-12.3); Monocytes Absolute Auto 0.7 X10*3/uL (0.1-1.2); Neutrophils Absolute Auto 7.8 X10*3/uL (2.0-8.3); Neutrophils Percent Auto 70.3 % (45-73); Platelet Count 342 X10*3/uL (160-400); Red Blood Count 4.32 X10*6/uL (4.20-5.50); White Blood Count 11.1 X10*3/uL (4.8-10.8)
[2021-05-05 07:08] LABS: Anion Gap 12 (12-20); Blood Urea Nitrogen 5 mg/dL (9-16); Carbon Dioxide 22 mmol/L (22-29); Chloride 109 mmol/L (96-108); Creatinine Clr Calc Pharmacy 152.9; Estimated Glomerular Filt Rate > 60; Glucose Random 118 mg/dL (60-115); Potassium 3.9 mmol/L (3.3-5.1); Sodium 139 mmol/L (135-145)
[2021-05-05] MEDS: 0.9 % Sodium Chloride Flush 3 ML SYRINGE IVFLUSH (07:39)
[2021-05-05] MEDS: Famotidine/PF 20 MG/2 ML VIAL IVPUSH (07:39)
[2021-05-05 08:00] VITALS: BP 142/99; PULSE 64; RESP 18; TEMP 36.9; O2SAT 98
--- NOTE | 2021-05-05 10:06 | MHC.CM.PN ---
EMR REVIEWED, PT ADMITTED S/P LAP SLEEVE GASTRECTOMY, CM MET W/PT WHO REPORTS SHE LIVES W/ AND HAS 4 CHILDREN AT HOME W/YOUNGEST BEIG 1YO, PT REPORTS HER SISTER WHO IS AT BEDSIDE WILL BE STAYING W/PT TO ASSIST W/CHILDREN, PT IS INDEPENDENT AND HAS NO DME AND NO HOME SERVICES. PT VERIFIES PCP IS VISH ROBISON AND HCP IS HER [facility] [phone]. D/C PLAN: HOME SELF-CARE W/FOLLOW-UP IN SURGEONS OFFICE, SISTER FOR TRANSPORT.
--- NOTE | 2021-05-05 13:49 | HO.POSTANES ---
Post Anesthesia Evaluation Post Anesthesia Evaluation Vital Signs: Vital Signs Temp Pulse Resp BP Pulse Ox 05/05/21 08:00 98.5 F 64 18 142/99 H 98 05/05/21 04:00 98.9 F 71 16 141/86 H 96 Anesthesia: General Endotracheal-GETA Mental Status: Awake Pain Control: Satisfactory Nausea/Vomiting: None Hydration: Adequate Anesthesia-Related Issues: No Anes. Related Issues
== END 2021-05-05 10:25 | disposition home or self-care (01) | DRG 403 ==
LOC: HO.SSSA 06:15 → HO.S3 11:30
PROVIDERS: Physician Assistant; Absent Provider Surgery; Admitting Provider Surgery; PCP Internal Medicine; Visit Provider Surgery
PROC: 0DB64Z3 Excision of Stomach, Percutaneous Endoscopic Approach, Vertical (ICD-10-PCS; CPT 43845; principal; 2021-05-04 07:30)
DX: E66.01 Morbid (severe) obesity due to excess calories (principal); K76.0 Fatty (change of) liver, not elsewhere classified; K44.0 Diaphragmatic hernia with obstruction, without gangrene; M19.90 Unspecified osteoarthritis, unspecified site; Z20.822 Contact with and (suspected) exposure to COVID-19; Z68.42 Body mass index [BMI] 45.0-49.9, adult; Z87.891 Personal history of nicotine dependence; Z79.899 Other long term (current) drug therapy
CPT/HCPCS: 36415; 80048; 80053; 80061; 83036; 83525; 84443; 85014; 85018; 85025; 85610; 85730; 86140; 86850; 86900; 86901; 87635; 88307; 88342; 99024; A4649; J0131; J0690; J1100; J1170; J2250; J2405; J2550; J3010

== ENCOUNTER → 2021-05-10 10:15 | Outpatient (BNVA) | payer OTHER, SELFPAY | PROVIDERS: Visit Provider Surgery ==

== ENCOUNTER → 2021-06-08 08:02 | Outpatient (BNVA) | payer OTHER, SELFPAY | PROVIDERS: Visit Provider Surgery ==

== ENCOUNTER → 2021-06-12 08:02 | Outpatient (BNVA) | payer OTHER, SELFPAY | PROVIDERS: Visit Provider Surgery ==

== ENCOUNTER → 2021-07-14 08:00 | Outpatient (BNVA) | payer OTHER, SELFPAY | PROVIDERS: Visit Provider Surgery ==

== ENCOUNTER → 2021-08-14 08:05 | Outpatient (BNVA) | payer OTHER, SELFPAY | PROVIDERS: Visit Provider Surgery ==

== ENCOUNTER → 2021-09-12 08:07 | Outpatient (BNVA) | payer OTHER, SELFPAY | PROVIDERS: Visit Provider Physician Assistant Surgical ==

== ENCOUNTER → 2021-10-24 08:16 | Outpatient (BNVA) | payer OTHER, SELFPAY | PROVIDERS: Visit Provider Physician Assistant Surgical ==

== ENCOUNTER 2021-11-27 13:41 | Outpatient (REF) | payer OTHER, SELFPAY ==
[2021-11-27 14:23] LABS: MANUAL DIFF FLAG NO
[2021-11-27 14:27] LABS: Basophils Absolute Auto 0.1 X10*3/uL (0.0-0.2); Basophils Percent Auto 0.6 % (0-2); Eosinophils Absolute Auto 0.2 X10*3/uL (0.0-0.4); Eosinophils Percent Auto 2.8 % (0-4); Hematocrit 32.1 % (37.0-47.0); Hemoglobin 10.3 g/dl (12.0-16.0); Imm Gran Abs Auto 0.02 X10*3/uL (0.00-0.03); Imm Gran Pct Auto 0.2 % (0.0-0.4); Lymphocytes Absolute Auto 3.8 X10*3/uL (1.2-4.9); Lymphocytes Percent Auto 43.3 % (20-40); Mean Corpuscular HGB Conc 32.1 g/dl (31.0-35.0); Mean Corpuscular Hemoglobin 26.5 pg (27.0-33.0); Mean Corpuscular Volume 82.7 fL (80.0-98.0); Mean Platelet Volume 9.8 fL (9.4-12.3); Monocytes Absolute Auto 0.5 X10*3/uL (0.1-1.2); Monocytes Percent Auto 5.2 % (2-11); Neutrophils Absolute Auto 4.2 x10*3/uL (2.0-8.3); Neutrophils Percent Auto 47.9 % (45-73); Platelet Count 445 X10*3/uL (160-400); Red Blood Count 3.88 X10*6/uL (4.20-5.50); Red Cell Distribution Width 14.4 % (11.0-16.0); White Blood Count 8.7 X10*3/uL (4.8-10.8)
[2021-11-27 14:35] LABS: Estimated Average Glucose 103 mg/dL; Hemoglobin A1c % 5.2 %
[2021-11-27 14:49] LABS: Anion Gap 9 (12-20); Blood Urea Nitrogen 20 mg/dL (9-16); C Reactive Protein 0.45 mg/dL (< or = 0.50); Calcium 9.4 mg/dL (8.4-10.2); Carbon Dioxide 26 mmol/L (22-29); Chloride 108 mmol/L (96-108); Estimated Glomerular Filt Rate > 60; Glucose Random 108 mg/dL (60-115); Iron 52 mcg/dL (30-160); Percent Iron Saturation 12 % (15-50); Potassium 4.3 mmol/L (3.3-5.1); Sodium 139 mmol/L (135-145); Total Iron Binding Capacity 451 mcg/dL (228-428); Unsaturated Iron Binding 399 ug/dL
[2021-11-27 15:14] LABS: TSH reflex Free T4 1.37 uIU/mL (0.32-4.0)
[2021-11-27 15:23] LABS: Folate 9.2 ng/mL (> or = 4.0); Vitamin B12 585 pg/mL (200-900)
[2021-11-27 15:42] LABS: Ferritin 5 ng/mL (10-122)
[2021-11-28 13:27] LABS: PTHI 129 pg/mL (16-77)
[2021-12-01 06:17] LABS: Zinc 68 mcg/dL (60-130)
[2021-12-02 09:11] LABS: Vitamin B1 11 nmol/L (8-30)
[2021-12-05 10:17] LABS: Vitamin A 24 mcg/dL (38-98)
== END 2021-11-27 13:42 | disposition home or self-care (01) ==
LOC: HO.LAB 13:41
PROVIDERS: PCP Internal Medicine; Visit Provider Physician Assistant Surgical
DX: E66.9 Obesity, unspecified (principal); Z68.37 Body mass index [BMI] 37.0-37.9, adult; Z98.84 Bariatric surgery status
CPT/HCPCS: 36415; 80048; 82306; 82607; 82728; 82746; 83036; 83540; 83970; 84425; 84443; 84590; 84630; 85025; 86140

== ENCOUNTER → 2022-01-24 13:49 | Outpatient (BNVA) | payer OTHER, SELFPAY | PROVIDERS: PCP Internal Medicine; Visit Provider Physician Assistant Surgical | DX: Z13.89 Encounter for screening for other disorder (principal) ==

== ENCOUNTER → 2022-09-25 14:40 | Outpatient (BNVA) | payer OTHER, SELFPAY | PROVIDERS: PCP Internal Medicine; Visit Provider Physician Assistant Surgical | DX: E66.9 Obesity, unspecified (principal) ==

== ENCOUNTER 2022-09-26 13:34 | Outpatient (REF) | payer OTHER, SELFPAY ==
[2022-09-26 13:47] LABS: MANUAL DIFF FLAG NO
[2022-09-26 14:44] LABS: Basophils Absolute Auto 0.1 X10*3/uL (0.0-0.2); Basophils Percent Auto 0.8 % (0-2); Eosinophils Absolute Auto 0.1 X10*3/uL (0.0-0.4); Eosinophils Percent Auto 1.1 % (0-4); Hematocrit 25.8 % (37.0-47.0); Imm Gran Abs Auto 0.02 X10*3/uL (0.00-0.03); Imm Gran Pct Auto 0.3 % (0.0-0.4); Lymphocytes Absolute Auto 3.3 X10*3/uL (1.2-4.9); Lymphocytes Percent Auto 45.2 % (20-40); Mean Corpuscular HGB Conc 30.6 g/dl (31.0-35.0); Mean Corpuscular Hemoglobin 21.2 pg (27.0-33.0); Mean Corpuscular Volume 69.2 fL (80.0-98.0); Mean Platelet Volume 9.2 fL (9.4-12.3); Monocytes Absolute Auto 0.4 X10*3/uL (0.1-1.2); Neutrophils Absolute Auto 3.4 x10*3/uL (2.0-8.3); Neutrophils Percent Auto 46.6 % (45-73); Platelet Count 374 X10*3/uL (160-400); Red Blood Count 3.73 X10*6/uL (4.20-5.50); White Blood Count 7.4 X10*3/uL (4.8-10.8)
[2022-09-26 14:50] LABS: Estimated Average Glucose 114 mg/dL; Hemoglobin 7.9 g/dl (12.0-16.0); Hemoglobin A1c % 5.6 %
[2022-09-26 15:38] LABS: Ferritin 2 ng/mL (10-122); Folate 10.7 ng/mL (> or = 4.0); Insulin 6 uU/mL (2-29); TSH reflex Free T4 0.96 uIU/mL (0.32-4.0); Vitamin B12 680 pg/mL (200-900); Vitamin D 25-OH Total 15.1 ng/mL (>30)
[2022-09-26 16:14] LABS: Alanine Aminotransferase 11 U/L (0-31); Albumin Level 3.9 g/dL (3.5-5.0); Alkaline Phosphatase 64 U/L (39-117); Anion Gap 10 (12-20); Aspartate Amino Transferase 14 U/L (5-31); Bilirubin Total 0.6 mg/dL (0.0-1.0); Blood Urea Nitrogen 15 mg/dL (9-16); C Reactive Protein 0.15 mg/dL (< or = 0.50); Carbon Dioxide 24 mmol/L (22-29); Chloride 108 mmol/L (96-108); Cholesterol 149 mg/dL; Estimated Glomerular Filt Rate > 60; Glucose Random 89 mg/dL (60-115); HDL Cholesterol 59 mg/dL; Iron 18 mcg/dL (30-160); LDL Cholesterol Calculated 77 mg/dl; Percent Iron Saturation 4 % (15-50); Potassium 3.9 mmol/L (3.3-5.1); Sodium 138 mmol/L (135-145); Total Iron Binding Capacity 459 mcg/dL (228-428); Total Protein 6.9 g/dL (6.5-8.0); Triglycerides 67 mg/dL; Unsaturated Iron Binding 441 ug/dL
[2022-09-27 18:48] LABS: Calcium (PTHI) 9.2 mg/dL (8.6-10.2); PTHI 69 pg/mL (16-77)
[2022-09-30 20:39] LABS: Zinc 51 mcg/dL (60-130)
[2022-10-02 13:43] LABS: Vitamin A 32 mcg/dL (38-98)
[2022-10-06 11:23] LABS: Vitamin B1 10 nmol/L (8-30)
== END 2022-09-26 13:35 | disposition home or self-care (01) ==
LOC: HO.LAB 13:34
PROVIDERS: PCP Internal Medicine; Visit Provider Physician Assistant Surgical
DX: Z98.84 Bariatric surgery status (principal)
CPT/HCPCS: 36415; 80053; 80061; 82306; 82607; 82728; 82746; 83036; 83525; 83540; 83970; 84425; 84443; 84590; 84630; 85025; 86140

== ENCOUNTER 2024-03-21 23:05 | Emergency (ER) | payer OTHER, SELFPAY ==
--- NOTE | ~2024-03-21 | XR_ITS ---
EXAMINATION: XR KNEE, LEFT CLINICAL INFORMATION: Possible knee dislocation. COMPARISON: None available. TECHNIQUE: AP, lateral, tunnel, and sunrise views of the left knee. FINDINGS: Marginal osteophytes. Minimal joint space narrowing. No fracture or malalignment. No joint effusion. Bone mineralization is normal. Soft tissues are unremarkable. XR/XR knee LT 3V IMPRESSION: Mild tricompartmental osteoarthritis. No acute osseous findings.
[2024-03-21 23:12] VITALS: BP 121/69; PULSE 94; RESP 18; TEMP 36.7; O2SAT 100; BMI 41.6
--- NOTE | 2024-03-22 01:24 | ED_ITS ---
HPI - General Adult General Chief complaint: Extremity Injury, Lower Stated complaint: dislocated knee Time Seen by Provider: 03/22/24 01:07 Source: patient, RN notes reviewed and old records reviewed Mode of arrival: ambulatory Limitations: no limitations History of Present Illness ED Provider: Noel HPI narrative: 39-year-old female presents for evaluation of left knee pain. Patient reports about 24 hours ago she was stepping out of the car she twisted her left leg. Patient believes that she dislocated her kneecap She reports a history of similar. She states that she has been able to walk around but with significant pain to the left knee She did not fall to the ground there was no trauma Her pain is 03/04 Related Data Home Medications ?Medication ?Instructions ?Recorded ?Confirmed celebrate Pedro+D PO BID 10/24/21 09/25/22 celebrate MVI PO DAILY 10/24/21 09/25/22 ferrous gluconate 240 mg (27 mg 240 mg PO DAILY 09/25/22 09/25/22 iron) tablet (Ferate) Previous Rx's ?Medication ?Instructions ?Recorded cholecalciferol (vitamin D3) 125 125 mcg PO DAILY #90 caps 10/08/22 mcg (5,000 unit) capsule vitamin A palmitate 3,000 mcg 10,000 unit PO DAILY #90 caps 10/08/22 (10,000 unit) capsule zinc gluconate 10 mg lozenges 10 mg PO DAILY #100 ea 10/08/22 Allergies Allergy/AdvReac Type Severity Reaction Status Date / Time Pollen Allergy Severe Anaphylaxis Uncoded 03/22/24 00:41 latex Allergy Intermediate Rash Uncoded 03/22/24 00:41 Review of Systems Constitutional: Constitutional: Denies body ache(s), Denies chills, Denies f ever(s) and Denies frequent falls Eyes: Eyes: Denies blurry vision ENT: Denies vertigo and Denies dizziness Cardiovascular: Cardiovascular: Denies chest pain and Denies dyspnea Respiratory: Respiratory: Denies cough and Denies dyspnea Gastrointestinal: Gastrointestinal: Denies abdominal pain and Denies vomiting Musculoskeletal: Musculoskeletal: Reports arthralgias, Reports joint swelling and Reports limited range of motion Integumentary/Breasts: Skin/Breast: Denies rash Neurologic: Denies vertigo, Denies dizziness and Denies frequent falls [facility] Past Medical History Medical History COVID-19 vaccine series completed DJD (degenerative joint disease) Morbid obesity PONV (postoperative nausea and vomiting) Steatosis, liver Surgical History History of sleeve gastrectomy Hx of cholecystectomy Hx of tubal ligation Family History Family History Mother Diabetes Father No problems noted. Sister No problems noted. Sister No problems noted. Brother No problems noted. Brother No problems noted. Son No problems noted. Daughter No problems noted. Daughter No problems noted. Daughter No problems noted. Social History Social History (Updated 09/25/22 @ 14:49 by Bren Patel CMA) Are you a primary ambulatory care coordinator to a significant other at home: No Do you presently have visiting nurse or other home services: No Alcohol intake: current Alcohol intake frequency: a few times a month Patient Tobacco Use Status: Former Tobacco user Tobacco use type: Cigarette Smoked in Last 30 Days: No Advance Directives: No Advance Directives Information Provided: No Do you have a plan to hurt others: No Plan service: No Current occupational status: employed Physical Exam ED Vital Signs: Vital Signs - 24 hr 03/21/24 23:12 03/22/24 01:30 Temperature 98.1 F 98.3 F Pulse Rate 94 88 Respiratory Rate 18 18 Blood Pressure 121/69 120/63 Pulse Oximetry 100 100 Oxygen Delivery Method Room Air Room Air BMI result Body Mass Index 41.6 Const General: healthy appearing, comfortable, no acute distress, alert and awake Nutritional Appearance: well nourished Orientation/consciousness: patient oriented x3 HENMT Head: Yes normocephalic and Yes atraumatic Eyes Eyelids: Yes eyelids normal Conjunctivae: conjunctivae normal Sclerae: sclerae normal Corneas: corneas normal Pupils: Equal, round and reactive pupils present EOM: EOMs intact bilaterally Neck Neck: Yes full ROM Resp Effort & Inspection: normal respiratory effort, able to speak in complete sentences and not labored Cardio Rate: regular rate Rhythm: regular rhythm GI Inspection: No distended Palpation (GI): Soft to palpation, not firm, nontender, no guarding and not rigid Skin General skin exam: elasticity normal Neuro General: patient oriented x3 Cranial nerves: Yes Equal, round and reactive pupils present and Yes Bilaterally intact EOM present Cognition (Neuro): normal cognition Extrem Other: Patient is obese somewhat limiting history. There is no significant edema, no laxity to left knee. The patella appears intact without laxity as well. She has full range of motion flexion and extension. There is no calf tenderness Medical Decision Making Medical Decision Making MDM Narrative: 39-year-old female presents for evaluation of left knee pain after twisting it yesterday. Her physical exam is reassuring. Her x-ray shows no structural deformity. Patient was given crutches and Nathan wrap, she will follow up with the primary doctor. I have a low suspicion for ligamentous tear. Differential Diagnosis Differential Diagnoses: The differential diagnosis associated with the p resentation includes Knee sprain Contusion Ligamentous injury Dislocated patella Radiology Impression Discussion of test interpretation with radiology: I have reviewed the radiologist's reading. Radiologist Impression: XR/XR knee LT 3V IMPRESSION: Mild tricompartmental osteoarthritis. No acute osseous findings. Discharge Plan Discharge Clinical Impression: Acute pain of left knee Patient Disposition: Home, Self-Care Instructions: Knee Pain (ED) Additional Instructions: Your x-ray did not show any evidence of dislocation or fracture. You likely have a knee sprain. Use ibuprofen/Tylenol for pain. Elevate the leg above your heart while resting. Follow-up with your primary doctor, return for new or worsening symptoms Prescriptions: No Action cholecalciferol (vitamin D3) 125 mcg (5,000 unit) capsule 125 mcg PO DAILY Qty: 90 3RF vitamin A palmitate 10,000 unit capsule 10,000 unit PO DAILY Qty: 90 3RF zinc gluconate 10 mg lozenge 10 mg PO DAILY Qty: 100 3RF celebrate MVI PO DAILY celebrate Pedro+D PO BID ferrous gluconate [Ferate] 240 mg (27 mg iron) tablet 240 mg PO DAILY Stand Alone Forms: Work/School Release Interventions: ED Discharge Assessment Last Done: 03/22/24 01:30 Discharge Date/Time: 03/22/24 01:34 Print Language: Citizen [place]
[2024-03-22 01:30] VITALS: BP 120/63; PULSE 88; RESP 18; TEMP 36.8; O2SAT 100
== END 2024-03-22 01:34 | disposition home or self-care (01) ==
PROVIDERS: Emergency Provider Emergency Medicine
DX: M25.562 Pain in left knee (principal)
CPT/HCPCS: 73562; 99283; 99284

== ENCOUNTER 2024-03-24 13:50 | Outpatient (AMB) | payer OTHER, SELFPAY ==
--- NOTE | 2024-03-24 13:55 | MHC.OFFVISWM ---
VS Expanded 03/24/24 14:01 BP 110/65 Blood Pressure Location Rt brachial Blood Pressure Position Sitting Pulse 89 Pulse Source Pulse Oximeter Temp 96.9 F Temperature Source Temporal Artery Scan Pulse Oximetry 99 Oxygen Delivery Method Room Air Height 5 ft 2 in Weight 233 lb 12.8 oz BMI 42.8 Body Fat % 42.4 Body Fat Mass 99.0 Fat Free Mass 134.4 Visceral Fat Rating 11.0 Body Water % 41.3 Body Water Mass 96.6 Muscle Mass/Score 127.8 Basal Metabolic Rate/Score 1,888 Intake Visit Reasons: (OV) PO LSG 05/04/21 Allergies Pollen Allergy (Severe, Uncoded 03/24/24 14:04) Anaphylaxis latex Allergy (Intermediate, Uncoded 03/24/24 14:04) Rash Medication List - Last Reconciled 03/24/24 by JUANA Denise No Known Home Meds HPI Comments Details: This?is a?39?yo female who is s/p LSG 05/04/2021. Weight at last visit on 09/25/2022 was 216 pounds with a BMI of 39.4, weight today is 233.8 pounds, representing a 17.8 pound weight gain with a BMI today of 42.8.? No complaints of nausea, emesis, abdominal pain or reflux, or constipation. Had two jobs but just left one. Present meal plan includes: 4-6am Pure Protein 1 scoop in 8oz unsweetened almond milk 9-11am same shake 1-3pm ZP bar 5pm dinner of 3-4oz protein, 3-4oz veg/salad Exercise routine includes: back to gym now that she is only working one job [facility] Medical History COVID-19 vaccine series completed DJD (degenerative joint disease) Morbid obesity PONV (postoperative nausea and vomiting) Steatosis, liver Surgical History History of sleeve gastrectomy Hx of tubal ligation Hx of cholecystectomy Family History Mother Diabetes Father No problems noted. Sister No problems noted. Sister No problems noted. Brother No problems noted. Brother No problems noted. Son No problems noted. Daughter No problems noted. Daughter No problems noted. Daughter No problems noted. Social History Are you a primary long term care administrator to a significant other at home: No Do you presently have visiting nurse or other home services: No Alcohol intake: current Alcohol intake frequency: a few times a month Patient Tobacco Use Status: Former Tobacco user Tobacco use type: Cigarette service: No Current occupational status: employed Physical Exam Vital Signs: Last Vital Signs Temp 96.9 F 03/24/24 14:01 Pulse 89 03/24/24 14:01 BP 110/65 03/24/24 14:01 Pulse Ox 99 03/24/24 14:01 Oxygen Delivery Method Room Air 03/24/24 14:01 BMI result Body Mass Index 42.8 Assessment & Plan Assessment & Plan (1) S/P laparoscopic sleeve gastrectomy: Code(s): Z98.84 - Bariatric surgery status Category: Surgical (2) Morbid obesity: Code(s): E66.01 - Morbid (severe) obesity due to excess calories Category: Medical Plan Pt got tired of repetitive meal options. I discussed some alternatives such as protein water. She agreed to the following plan: 4-6am Premier shake 2 scoops 9-11am Protein water 20g 1-3pm bar 5pm dinner- 6-8ff protein, 6-8ff veg/salad Labs ordered. Pt had stopped taking vit supplements, has anemia noted on last bloodwork Sep 2023. Will review results and determine what is needed for supplementation. RTC 6-8 weeks. Will text pt my information and encouraged her to send me weekly weight measurements. I spent a total of 30 minutes reviewing/updating records, examining the patient and counseling the patient on weight management as detailed above. Orders: Orders Insulin Today Z98.84 - Bariatric surgery status IRON PROFILE Today Z.84 - Bariatric surgery status C Reactive Protein Today Z98.84 - Bariatric surgery status Vitamin B1 Today Z98.84 - Bariatric surgery status TSH reflex Free T4 Today Z98.84 - Bariatric surgery status Ferritin Today Z98.84 - Bariatric surgery status Vitamin D 25-OH Total Today Z.84 - Bariatric surgery status Hemoglobin A1c Today Z98.84 - Bariatric surgery status Complete Blood Count Auto Diff Today Z98.84 - Bariatric surgery status Lipid Panel Today Z98.84 - Bariatric surgery status Comprehensive Met. Panel Today Z98.84 - Bariatric surgery status Vitamin B12 and Folate Today Z98.84 - Bariatric surgery status Zinc Today Z98.84 - Bariatric surgery status Vitamin A Today Z98.84 - Bariatric surgery status
[2024-03-24 14:01] VITALS: BP 110/65; PULSE 89; TEMP 36.1; O2SAT 99; BMI 42.8
== END 2024-03-24 14:28 | disposition home or self-care (01) ==
PROVIDERS: PCP Internal Medicine; Visit Provider Physician Assistant Surgical
DX: E66.01 Morbid (severe) obesity due to excess calories (principal); Z68.41 Body mass index [BMI] 40.0-44.9, adult; Z98.84 Bariatric surgery status; Z90.3 Acquired absence of stomach [part of]
CPT/HCPCS: 99214

== ENCOUNTER → 2024-03-24 13:50 | Outpatient (BNVA) | payer OTHER, SELFPAY | PROVIDERS: PCP Internal Medicine; Visit Provider Physician Assistant Surgical ==

== ENCOUNTER 2024-03-25 12:09 | Outpatient (REF) | payer OTHER, SELFPAY ==
[2024-03-25 12:23] LABS: MANUAL DIFF FLAG NO
[2024-03-25 13:34] LABS: Basophils Absolute Auto 0.1 X10*3/uL (0.0-0.2); Eosinophils Absolute Auto 0.1 X10*3/uL (0.0-0.4); Eosinophils Percent Auto 1.9 % (0-4); Hematocrit 27.1 % (37.0-47.0); Hemoglobin 7.9 g/dl (12.0-16.0); Imm Gran Abs Auto 0.01 X10*3/uL (0.00-0.03); Imm Gran Pct Auto 0.1 % (0.0-0.4); Lymphocytes Absolute Auto 2.8 X10*3/uL (1.2-4.9); Lymphocytes Percent Auto 40.7 % (20-40); Mean Corpuscular HGB Conc 29.2 g/dl (31.0-35.0); Mean Corpuscular Hemoglobin 18.9 pg (27.0-33.0); Mean Platelet Volume 10.1 fL (9.4-12.3); Monocytes Absolute Auto 0.4 X10*3/uL (0.1-1.2); Monocytes Percent Auto 5.4 % (2-11); Neutrophils Absolute Auto 3.6 x10*3/uL (2.0-8.3); Neutrophils Percent Auto 50.9 % (45-73); Platelet Count 490 X10*3/uL (160-400); Red Blood Count 4.19 X10*6/uL (4.20-5.50); Red Cell Distribution Width 18.1 % (11.0-16.0)
[2024-03-25 13:35] LABS: Mean Corpuscular Volume 64.7 fL (80.0-98.0)
[2024-03-25 14:07] LABS: Estimated Average Glucose 111 mg/dL; Hemoglobin A1c % 5.5 % (<6.0)
[2024-03-25 14:13] LABS: Alanine Aminotransferase 10 U/L (0-31); Anion Gap 11 (12-20); Aspartate Amino Transferase 13 U/L (5-31); Bilirubin Total 0.5 mg/dL (0.0-1.0); Blood Urea Nitrogen 11 mg/dL (9-16); C Reactive Protein 0.44 mg/dL (< or = 0.50); Calcium 8.6 mg/dL (8.4-10.2); Carbon Dioxide 23 mmol/L (22-29); Chloride 109 mmol/L (96-108); Estimated Glomerular Filt Rate > 60; Glucose Random 108 mg/dL (60-115); Iron 24 mcg/dL (30-160); Percent Iron Saturation 5 % (15-50); Potassium 3.9 mmol/L (3.3-5.1); Sodium 139 mmol/L (135-145); Total Iron Binding Capacity 449 mcg/dL (228-428); Unsaturated Iron Binding 425 ug/dL
[2024-03-25 14:14] LABS: Albumin Level 3.7 g/dL (3.5-5.0); Alkaline Phosphatase 74 U/L (39-117); Cholesterol 149 mg/dL (<200); HDL Cholesterol 59 mg/dL (>40); LDL Cholesterol Calculated 75 mg/dL (<100); Total Protein 7.3 g/dL (6.5-8.0); Triglycerides 75 mg/dL (<150)
[2024-03-25 14:29] LABS: Ferritin 2 ng/mL (10-122); Insulin 29 uU/mL (2-29); TSH reflex Free T4 1.31 uIU/mL (0.32-4.0); Vitamin D 25-OH Total 22.5 ng/mL (>30)
[2024-03-25 14:31] LABS: Folate 18.7 ng/mL (> or = 4.0); Vitamin B12 726 pg/mL (200-900)
[2024-03-28 00:48] LABS: Zinc 75 mcg/dL (60-130)
[2024-03-30 21:07] LABS: Vitamin A 27 mcg/dL (38-98)
[2024-04-01 05:14] LABS: Vitamin B1 10 nmol/L (8-30)
== END 2024-03-25 12:10 | disposition home or self-care (01) ==
LOC: HO.LAB 12:09
PROVIDERS: PCP Internal Medicine; Visit Provider Physician Assistant Surgical
DX: Z98.84 Bariatric surgery status (principal); Z13.1 Encounter for screening for diabetes mellitus
CPT/HCPCS: 36415; 80053; 80061; 82306; 82607; 82728; 82746; 83036; 83525; 83540; 84425; 84443; 84590; 84630; 85025; 86140

== ENCOUNTER 2024-07-08 13:44 | Outpatient (AMB) | payer OTHER, SELFPAY ==
--- NOTE | 2024-07-08 13:30 | MHC.OFFVISWM ---
VS Expanded 07/08/24 13:36 Height 5 ft 2 in Weight 236 lb BMI 43.2 Intake Visit Reasons: (TV) PO LSG 05/04/21 Allergies Pollen Allergy (Severe, Uncoded 03/24/24 14:04) Anaphylaxis latex Allergy (Intermediate, Uncoded 03/24/24 14:04) Rash Medication List - Last Reconciled 07/08/24 by JUANA Denise cholecalciferol (vitamin D3) 50 mcg PO DAILY iron,carbonyl-vitamin C 65 mg iron- 125 mg (Vitron-C) 1 tab PO BEDTIME vitamin A palmitate 10,000 units PO DAILY HPI Comments Details: This?is a?39?yo female who is s/p LSG 05/04/2021. Presents for 3 year 2 month post op visit. Weight at last visit on 03/24/2024 was 233.8 pounds with a BMI of 42.8, weight today is 236 pounds, representing a 2.2 pound weight gain with a BMI today of .? No complaints of nausea, emesis, abdominal pain or reflux, or constipation. Started iron supplement, vitamin A and D. Present meal plan includes: 4-6am Premier shake 2 scoops 9-11am Protein water 20g 1-3pm bar 5pm dinner- 6-8ff protein, 6-8ff veg/salad pt has not always been finishing protein water, doesn't like the taste Exercise: went back to PT, able to bend knee better went back to gym, 2x/week now 30 min on treadmill, core work, weight training [facility] Medical History COVID-19 vaccine series completed DJD (degenerative joint disease) Morbid obesity PONV (postoperative nausea and vomiting) Steatosis, liver Surgical History History of sleeve gastrectomy Hx of tubal ligation Hx of cholecystectomy Family History Mother Diabetes Father No problems noted. Sister No problems noted. Sister No problems noted. Brother No problems noted. Brother No problems noted. Son No problems noted. Daughter No problems noted. Daughter No problems noted. Daughter No problems noted. Social History Are you a primary patient care manager to a significant other at home: No Do you presently have visiting nurse or other home services: No Alcohol intake: current Alcohol intake frequency: a few times a month Patient Tobacco Use Status: Former Tobacco user Tobacco use type: Cigarette service: No Current occupational status: employed Telehealth Telehealth Telehealth Platform: Telephone Location of provider rendering services: other Location of patient: address on file Patient Identification confirmed using: Name, : Yes Telehealth method: voice only Patient verbally consented to treatment: Yes Patient verbally consented to billing insurance company: Yes Patient informed of any privacy concerns related to visit: Yes Minutes spent on Phone/Video with Pt.: 16 Assessment & Plan Assessment & Plan (1) Obesity: Code(s): E66.9 - Obesity, unspecified Category: Medical (2) S/P laparoscopic sleeve gastrectomy: Code(s): Z98.84 - Bariatric surgery status Category: Surgical Plan Pt would like to speak to her PCP regarding GLP1 agonists. I told her I could provide a letter of support or office notes if requested. She is not consistently taking in protein water. Can try having a [place] yogurt instead as she likes these and I think her lack of consistency/low protein intake is contributing to her weight stall- we discussed this. PCP is aware of anemia. Will recheck labs at next visit RTC 3 months. I spent a total of 30 minutes reviewing/updating records, examining the patient and counseling the patient on weight management as detailed above.
[2024-07-08 13:36] VITALS: BMI 43.2
== END 2024-07-08 14:06 | disposition home or self-care (01) ==
LOC: HO.HBS 13:44
PROVIDERS: PCP Internal Medicine; Visit Provider Physician Assistant Surgical
DX: E66.9 Obesity, unspecified (principal); Z98.84 Bariatric surgery status
CPT/HCPCS: 99214

== ENCOUNTER → 2024-07-08 13:44 | Outpatient (BNVA) | payer OTHER, SELFPAY | PROVIDERS: PCP Internal Medicine; Visit Provider Physician Assistant Surgical ==

== ENCOUNTER 2024-10-05 10:47 | Outpatient (AMB) | payer OTHER, SELFPAY ==
--- NOTE | 2024-10-05 10:34 | MHC.OFFVISWM ---
VS Expanded 10/05/24 10:40 Height 5 ft 2 in Weight 229 lb BMI 41.9 Intake Visit Reasons: TELEPHONE PO LSG 05/04/21 Allergies Pollen Allergy (Severe, Uncoded 03/24/24 14:04) Anaphylaxis latex Allergy (Intermediate, Uncoded 03/24/24 14:04) Rash Medication List - Last Reconciled 10/05/24 by JUANA Denise cholecalciferol (vitamin D3) 50 mcg PO DAILY iron,carbonyl-vitamin C 65 mg iron- 125 mg (Vitron-C) 1 tab PO BEDTIME semaglutide (weight loss) (Wegovy) 0.25 mg subcut QWEEK vitamin A palmitate 10,000 units PO DAILY HPI Comments Details: This?is a?39?yo female who is s/p LSG 05/04/2021. Presents for 3 year 5 month post op visit. Weight at last visit on 07/08/2024 was 236 pounds with a BMI of 43.2, weight today is 229 pounds, representing a 7 pound weight loss with a BMI today of 41.9.? No complaints of emesis, abdominal pain or reflux, or constipation. Pt was able to start Wegovy 1 month. Reports occasional nausea. Pt is followed for anemia by PCP, takes PO iron. Present meal plan includes: 4-6am Premier shake 2 scoops 9-11am Protein water 20g pr [place] yogurt 1-3pm bar 5pm dinner- 6-8ff protein, 6-8ff veg/salad pt has not always been finishing protein water, doesn't like the taste Exercise: went back to gym, 3x/week now 30 min on treadmill, core work, weight training knee pain much improved PFSH Medical History COVID-19 vaccine series completed DJD (degenerative joint disease) Morbid obesity PONV (postoperative nausea and vomiting) Steatosis, liver Surgical History History of sleeve gastrectomy Hx of tubal ligation Hx of cholecystectomy Family History Mother Diabetes Father No problems noted. Sister No problems noted. Sister No problems noted. Brother No problems noted. Brother No problems noted. Son No problems noted. Daughter No problems noted. Daughter No problems noted. Daughter No problems noted. Social History Are you a primary weekend caregiver to a significant other at home: No Do you presently have visiting nurse or other home services: No Alcohol intake: current Alcohol intake frequency: a few times a month Patient Tobacco Use Status: Former Tobacco user Tobacco use type: Cigarette service: No Current occupational status: employed Telehealth Telehealth Telehealth Platform: Telephone Location of provider rendering services: other Location of patient: address on file Patient Identification confirmed using: Name, : Yes Telehealth method: voice only Patient verbally consented to treatment: Yes Patient verbally consented to billing insurance company: Yes Patient informed of any privacy concerns related to visit: Yes Minutes spent on Phone/Video with Pt.: 16 Assessment & Plan Assessment & Plan (1) Obesity: Code(s): E66.9 - Obesity, unspecified Category: Medical (2) S/P laparoscopic sleeve gastrectomy: Code(s): Z98.84 - Bariatric surgery status Category: Surgical Plan Pt doing well on GLP1. Discussed the importance of adequate protein intake while on this medication. She is being followed for her anemia and recently had bloodwork with PCP. Due for repeat labs in February. RTC in February. Pt will reach out to the office if she has any questions/concerns before then. I spent a total of 30 minutes reviewing/updating records, examining the patient and counseling the patient on weight management as detailed above.
[2024-10-05 10:40] VITALS: BMI 41.9
--- OUTSIDE RECORDS SUMMARY | 2024-10-05 11:50 | XMS_ITS ---
Author Organization [facility] Address [address] [place] [address] Care Team Providers Care Corporate Representative Name Role Phone Mila Mobley Primary Care Provider Unavailab ALEJANDRO Lamb [phone] REASON FOR VISIT close note Encounters Encounter Location Date Provider Diagnosis [address] [place] [address] 09/08/2024 ALEJANDRO LOAIZA PLAN OF TREATMENT Next Appt Details Provider Name:ALEJANDRO LOAIZA , 10/27/2024 02:15:00 PM, [address], [address], [place], [address], Progress Notes * MARTI DE ARANDA, YessicaDOB: 1985 (39 yo F)Acc No.[id number]:09/08/2024 Patient:??MARTI DE ARANDA, Y essica :1985?Age:39 Y?Sex:Fe male Address:[place] [address] * true * Date:??
--- OUTSIDE RECORDS SUMMARY | 2024-10-05 11:50 | XMS_ITS ---
Author Organization [facility] Address [address] [place] [address] Care Team Providers Care Stock Handler Name Role Phone Mila Mobley Primary Care Provider Unavailab ALEJANDRO Lamb [phone] Encounters Encounter Location Date Provider Diagnosis [address] [place] [address] 09/22/2024 ALEJANDRO LOAIZA PLAN OF TREATMENT Next Appt Details Provider Name:ALEJANDRO LOAIZA , 10/27/2024 02:15:00 PM, [address], [address], [place], [address], Progress Notes * MARTI DE MANOJ, YessicaDOB: 1985 (39 yo F)Acc No.[id number]:09/22/2024 Patient:??MARTI DE ARANDA, Y essica Provider:??ALEJANDRO LOAIZA :1985?Age:39 Y?Sex:Fe male Date:09/22/2024 Address:[address], [place] Pcp:Mila Mobley Subjective: * Chief Complaints: * ? * Medical History:?? Objective: Assessment: Plan: * Treatment: * Images: Billing Information: * Visit Code:?? * Procedure Codes:?? * Sign off status: Pending * Provider:??ALEJANDRO LOAIZA Date:?? 025
--- OUTSIDE RECORDS SUMMARY | 2024-10-05 11:50 | XMS_ITS ---
Author Organization [facility] Address [address] [facility] [place] [address] Care Team Providers [employer] Salesperson Name Role Phone Mila Mobley Primary Care Provider Unavailab ALEJANDRO Lamb Unavailable [phone] REASON FOR VISIT patient here for weight management follow up; seca done; previous weight: 242 lbs, current weight: 240.3 lbs; patient currently taking 0.25mg wegovy and reports mild manageable nausea some mornings MEDICATIONS Medication SIG (Take, Route, Frequency, Duration) Notes Start Date End Date Status Vitamin D3 50 MCG (2000 UT) TAKE 1 CAPSULE BY MOUTH DAILY Oral for 30 Days Active Ferrous Gluconate 240 (27 Fe) MG TAKE 1 TABLET BY MOUTH ONCE DAILY Oral for 30 Days Active Vitamin A 3 MG (64665 UT) TAKE 1 CAPSULE BY MOUTH DAILY Oral for 30 Days Active Ondansetron 4 MG 1 tablet on the tong ue and allow to dissolve Orally 1-2 times daily for 30 days 09/29/2024 Active Wegovy 0.5 MG/0.5ML Inject 0.5 mg Subcut aneous once weekly for 28 days 08/25/2024 Active VITAL SIGNS Heart Rate 90 /min 09/29/2024 Blood pressure systolic 114 mm Hg 09/29/19 25 Blood pressure diastolic 76 mm Hg 025 Weight 240.3 lbs 09/29/2024 BMI 42.56 kg/m2 09/29/2024 Height 63 in 09/29/2024 Oximetry 99 % 09/29/2024 Encounters Encounter Location Date Provider Diagnosis [facility] [address] [facility] [address] [place] [address] 09/29/2024 ALEJANDRO LOAIZA Adult-onset obesity E66.9 ; BMI 40.0-44.9, adult Z68.41 ; Iron deficiency E61.1 and Nausea R11.0 ASSESSMENTS Encounter Date Diagnosis Assessment Notes Treatment Notes Treatment Clinical Notes Section Notes 09/29/2024 Adult-onset obesity (ICD-10 - E66.9) Patient is here for weight management follow-up. We focused on significance of healthy lifestyle changes. We talked about need to track steps with goal between 6000-10,000 steps daily, focus on portion control, read food labels, get adequate sleep between 7 to 8 hours, get adequate rest to the body, meditate, frequent nutritious meals including vegetables and healthy choices of lean meats, fish, and elimination of refined carbohydrates. We also talked about mindfulness and mindful eating. Particular focus was on increasing resistance training to build muscle loss. Total time spent with 30 minutes with greater than 50% spent on counseling and coordinating care. 08/25/2024: Weight 242 pounds, BMI 42.86. SECA scan completed today and interpreted with the patient. Limited time and schedule significant component for weight management at this time. Patient works 2 jobs and is not able to exercise as regularly as she was before. Has also been taking metformin for weight loss, reports slight decrease in weight in first few weeks of the medication however has now plateaued. Also experiencing diarrhea on metformin. We discussed other weight loss medications and patient is a good candidate for Wegovy. We discussed proper use of the medication as well as expected side effect profile including but not limited to nausea, constipation, abdominal pain, and heartburn. Reports no history of pancreatitis, no history in self or family of medullary thyroid cancer, and no history in self or family of multiple endocrine neoplasia syndrome type I or II. Advised this medication requires a prior authorization which can take 2 to 4 weeks. Patient understanding. At this time we will follow-up in office in approximately 4 weeks for continued management. 09/29/2024: Weight 240.3 pounds, BMI 42.56. Seca scan completed today and interpreted with patient. Down approximately 2 pounds from last office visit. Currently on Wegovy 0.25 mg weekly. Reports some nausea today after injection. No other adverse symptoms. On reviewing body composition scan patient does have lower amount of muscle, therefore encouraged patient to increase exercise with weight training. Patient understanding. Plan at this time to increase dose of Wegovy to 0.5 mg weekly. Will prophylactically send Zofran 4 mg as well as needed for nausea. She will follow-up in office in 4 weeks for further management. # Iron deficiency anemia: Continue ferrous gluconate 27 mg 1 tablet once daily. Will continue to monitor. All questions have been answered to patient's satisfaction. Patient verbalized understanding of diagnosis and treatments explained. Advised to call sooner prior to next visit it any questions/concerns arise. Case discussed with collaborating physician Gary Wilson who reviewed the assessment and plan. Chart, medications, labs, vital signs reviewed. Dictation was accomplished with the use of Dash[employer] voice recognition software, which is prone to medical misidentifications and grammatical errors. This are unintentional and the practitioner does try to identify and correct these, but some could still be present. Please do not hesitate to contact practitioner for clarification. 09/29/2024 BMI 40.0-44.9, adult (ICD-10 - Z68.41) Patient is here for weight management follow-up. We focused on significance of healthy lifestyle changes. We talked about need to track steps with goal between 6000-10,000 steps daily, focus on portion control, read food labels, get adequate sleep between 7 to 8 hours, get adequate rest to the body, meditate, frequent nutritious meals including vegetables and healthy choices of lean meats, fish, and elimination of refined carbohydrates. We also talked about mindfulness and mindful eating. Particular focus was on increasing resistance training to build muscle loss. Total time spent with 30 minutes with greater than 50% spent on counseling and coordinating care. 08/25/2024: Weight 242 pounds, BMI 42.86. SECA scan completed today and interpreted with the patient. Limited time and schedule significant component for weight management at this time. Patient works 2 jobs and is not able to exercise as regularly as she was before. Has also been taking metformin for weight loss, reports slight decrease in weight in first few weeks of the medication however has now plateaued. Also experiencing diarrhea on metformin. We discussed other weight loss medications and patient is a good candidate for Wegovy. We discussed proper use of the medication as well as expected side effect profile including but not limited to nausea, constipation, abdominal pain, and heartburn. Reports no history of pancreatitis, no history in self or family of medullary thyroid cancer, and no history in self or family of multiple endocrine neoplasia syndrome type I or II. Advised this medication requires a prior authorization which can take 2 to 4 weeks. Patient understanding. At this time we will follow-up in office in approximately 4 weeks for continued management. 09/29/2024: Weight 240.3 pounds, BMI 42.56. Seca scan completed today and interpreted with patient. Down approximately 2 pounds from last office visit. Currently on Wegovy 0.25 mg weekly. Reports some nausea today after injection. No other adverse symptoms. On reviewing body composition scan patient does have lower amount of muscle, therefore encouraged patient to increase exercise with weight training. Patient understanding. Plan at this time to increase dose of Wegovy to 0.5 mg weekly. Will prophylactically send Zofran 4 mg as well as needed for nausea. She will follow-up in office in 4 weeks for further management. # Iron deficiency anemia: Continue ferrous gluconate 27 mg 1 tablet once daily. Will continue to monitor. All questions have been answered to patient's satisfaction. Patient verbalized understanding of diagnosis and treatments explained. Advised to call sooner prior to next visit it any questions/concerns arise. Case discussed with collaborating physician Gary Wilson who reviewed the assessment and plan. Chart, medications, labs, vital signs reviewed. Dictation was accomplished with the use of [employer] voice recognition software, which is prone to medical misidentifications and grammatical errors. This are unintentional and the practitioner does try to identify and correct these, but some could still be present. Please do not hesitate to contact practitioner for clarification. 09/29/2024 Iron deficiency (ICD-10 - E61.1) Patient is here for weight management follow-up. We focused on significance of healthy lifestyle changes. We talked about need to track steps with goal between 6000-10,000 steps daily, focus on portion control, read food labels, get adequate sleep between 7 to 8 hours, get adequate rest to the body, meditate, frequent nutritious meals including vegetables and healthy choices of lean meats, fish, and elimination of refined carbohydrates. We also talked about mindfulness and mindful eating. Particular focus was on increasing resistance training to build muscle loss. Total time spent with 30 minutes with greater than 50% spent on counseling and coordinating care. 08/25/2024: Weight 242 pounds, BMI 42.86. SECA scan completed today and interpreted with the patient. Limited time and schedule significant component for weight management at this time. Patient works 2 jobs and is not able to exercise as regularly as she was before. Has also been taking metformin for weight loss, reports slight decrease in weight in first few weeks of the medication however has now plateaued. Also experiencing diarrhea on metformin. We discussed other weight loss medications and patient is a good candidate for Wegovy. We discussed proper use of the medication as well as expected side effect profile including but not limited to nausea, constipation, abdominal pain, and heartburn. Reports no history of pancreatitis, no history in self or family of medullary thyroid cancer, and no history in self or family of multiple endocrine neoplasia syndrome type I or II. Advised this medication requires a prior authorization which can take 2 to 4 weeks. Patient understanding. At this time we will follow-up in office in approximately 4 weeks for continued management. 09/29/2024: Weight 240.3 pounds, BMI 42.56. Seca scan completed today and interpreted with patient. Down approximately 2 pounds from last office visit. Currently on Wegovy 0.25 mg weekly. Reports some nausea today after injection. No other adverse symptoms. On reviewing body composition scan patient does have lower amount of muscle, therefore encouraged patient to increase exercise with weight training. Patient understanding. Plan at this time to increase dose of Wegovy to 0.5 mg weekly. Will prophylactically send Zofran 4 mg as well as needed for nausea. She will follow-up in office in 4 weeks for further management. # Iron deficiency anemia: Continue ferrous gluconate 27 mg 1 tablet once daily. Will continue to monitor. All questions have been answered to patient's satisfaction. Patient verbalized understanding of diagnosis and treatments explained. Advised to call sooner prior to next visit it any questions/concerns arise. Case discussed with collaborating physician Gary Wilson who reviewed the assessment and plan. Chart, medications, labs, vital signs reviewed. Dictation was accomplished with the use of [employer] voice recognition software, which is prone to medical misidentifications and grammatical errors. This are unintentional and the practitioner does try to identify and correct these, but some could still be present. Please do not hesitate to contact practitioner for clarification. 09/29/2024 Nausea (ICD-10 - R11.0) Patient is here for weight management follow-up. We focused on significance of healthy lifestyle changes. We talked about need to track steps with goal between 6000-10,000 steps daily, focus on portion control, read food labels, get adequate sleep between 7 to 8 hours, get adequate rest to the body, meditate, frequent nutritious meals including vegetables and healthy choices of lean meats, fish, and elimination of refined carbohydrates. We also talked about mindfulness and mindful eating. Particular focus was on increasing resistance training to build muscle loss. Total time spent with 30 minutes with greater than 50% spent on counseling and coordinating care. 08/25/2024: Weight 242 pounds, BMI 42.86. SECA scan completed today and interpreted with the patient. Limited time and schedule significant component for weight management at this time. Patient works 2 jobs and is not able to exercise as regularly as she was before. Has also been taking metformin for weight loss, reports slight decrease in weight in first few weeks of the medication however has now plateaued. Also experiencing diarrhea on metformin. We discussed other weight loss medications and patient is a good candidate for Wegovy. We discussed proper use of the medication as well as expected side effect profile including but not limited to nausea, constipation, abdominal pain, and heartburn. Reports no history of pancreatitis, no history in self or family of medullary thyroid cancer, and no history in self or family of multiple endocrine neoplasia syndrome type I or II. Advised this medication requires a prior authorization which can take 2 to 4 weeks. Patient understanding. At this time we will follow-up in office in approximately 4 weeks for continued management. 09/29/2024: Weight 240.3 pounds, BMI 42.56. Seca scan completed today and interpreted with patient. Down approximately 2 pounds from last office visit. Currently on Wegovy 0.25 mg weekly. Reports some nausea today after injection. No other adverse symptoms. On reviewing body composition scan patient does have lower amount of muscle, therefore encouraged patient to increase exercise with weight training. Patient understanding. Plan at this time to increase dose of Wegovy to 0.5 mg weekly. Will prophylactically send Zofran 4 mg as well as needed for nausea. She will follow-up in office in 4 weeks for further management. # Iron deficiency anemia: Continue ferrous gluconate 27 mg 1 tablet once daily. Will continue to monitor. All questions have been answered to patient's satisfaction. Patient verbalized understanding of diagnosis and treatments explained. Advised to call sooner prior to next visit it any questions/concerns arise. Case discussed with collaborating physician Gary Wilson who reviewed the assessment and plan. Chart, medications, labs, vital signs reviewed. Dictation was accomplished with the use of [employer] voice recognition software, which is prone to medical misidentifications and grammatical errors. This are unintentional and the practitioner does try to identify and correct these, but some could still be present. Please do not hesitate to contact practitioner for clarification. PLAN OF TREATMENT Medication Medication Name Sig Start Date Stop Date Notes Ondansetron 4 MG 1 tablet on the tong ue and allow to dissolve Orally 1-2 times daily for 30 days 09/29/2024 Wegovy 0.5 MG/0.5ML Inject 0.5 mg Subcut aneous once weekly for 28 days 08/25/2024 Next Appt Details Provider Name:ALEJANDRO JOSSE , 10/27/2024 02:15:00 PM, [address] [place] [address], [facility] [address], [place], [address], Progress Notes * MARTI HILARIO YessicaDOB: 1985 (39 yo F)Acc No.[id number]:09/29/2024 Patient:??MARTI HILARIO, Y essica Provider:??ALEJANDRO LOAIZA :1985?Age:39 Y?Sex:Fe male Date:09/29/2024 Address:[facility] [address] [facility] [place] Pcp:Mila Mobley Subjective: * Chief Complaints: * ?1. Patient here for we ight management follow up; seca done; previous weight: 242 lbs, current weight: 240.3 lbs; patient currently taking 0.25mg wegovy and reports mild manageable nausea some mornings. * HPI: ?Constitutional:? Elizabeth is a 39-year-old female with history of obesity status post gastric sleeve and iron deficiency anemia who presents to the office today for weight management follow-up. She was last seen in office for consultation on 08/25/2024 at which time weight was 242 pounds, BMI 42.86. Patient currently on Wegovy 0.25 mg weekly. Reports some nausea today after her injection however typically resolves with time. Reports no constipation or acid reflux. Better portion control on Wegovy, endorses that she feels zendejas faster. Has begun going back to the gym, has been doing 60 minutes of walking on the treadmill 3 times weekly for the past week. Has been trying to increase water intake. No other concerns today. * ROS:?Constitutional: Denies sudden weight loss, fever, night sweats, excessive fatigue, or changes in sleep. ???CV: Denies chest pain or heart palpitations. ???Respiratory: Denies SOB, wheezing, or pleuritic pain. ???GI: + Nausea. Denies v/d, constipation, blood in stools, pain associated with eating, indigestion, or difficulty/pain with swallowing. ???MSK: Denies back pain, joint deformity/pain, or muscle weakness. ???Integumentary: Denies skin changes. ???Endocrine: Denies polyuria, polyphagia, or polydipsia. No heat/cold intolerance or excessive thirst. * Medical History:??Medical Hi story Verified. * Surgical History:??Denies [facility] Surgical History. * Hospitalization/Major Diagno stic Procedure:??Denies Past Hospitalization. * Family History:??Father: dec eased.??Mother: .??2 brother(s) , 2 sister(s) - healthy. 1 son(s) , 3 daughter(s) - healthy. .?? * Medications:??Taking Vitamin D3 50 MCG (2000 UT) Capsule TAKE 1 CAPSULE BY MOUTH DAILY Oral , Taking Vitamin A 3 MG (74236 UT) Capsule TAKE 1 CAPSULE BY MOUTH DAILY Oral , Taking Ferrous Gluconate 240 (27 Fe) MG Tablet TAKE 1 TABLET BY MOUTH ONCE DAILY Oral , Taking Wegovy 0.25 MG/0.5ML Solution Auto-injector Inject 0.25 mg Subcutaneous once weekly , Discontinued metFORMIN HCl ER 500 MG Tablet Extended Release 24 Hour Oral , Medication List reviewed and reconciled with the patient Objective: * Vitals:??HR:90/min, BP:114/7 6mm Hg, Wt:240.3lbs, BMI:42.56Index, Ht: 63 in, Oxygen sat %:99%. * Physical Examination:?General: Age appropriate, well-appearing 39-year-old female in no acute distress, speaking in full sentences without respiratory compromise. Well groomed, well developed. Alert, interactive. ?Skin: Warm, dry and intact. No lesions/rashes/erythema. ?HEENT: Normocephalic/atraumatic. ?Neck/Thyroid: Thyroid symmetrical, nonenlarged, and free of nodules to palpation. ?Lungs: Clear to auscultation bilaterally. ?CV: Regular rate and rhythm without murmurs, rubs, or gallops. 2+ radial pulses bilaterally. ?Neuro: CN II-XII grossly intact. Steady gait with non-assisted ambulation observed. ?Psych: Stable mood and affect. Assessment: * Assessment: 1.??Adult-onset obesity - E6 6.9 (Primary)??2.??BMI 40.0-44.9, adult - Z68.41??3.??Iron deficiency - E61.1??4.??Nausea - R11.0?? Patient is here for weight m anagement follow-up. We focused on significance of healthy lifestyle changes. We talked about need to track steps with goal between 6000-10,000 steps daily, focus on portion control, read food labels, get adequate sleep between 7 to 8 hours, get adequate rest to the body, meditate, frequent nutritious meals including vegetables and healthy choices of lean meats, fish, and elimination of refined carbohydrates. We also talked about mindfulness and mindful eating. Particular focus was on increasing resistance training to build muscle loss. Total time spent with 30 minutes with greater than 50% spent on counseling and coordinating care. 08/25/2024: Weight 242 pounds, BMI 42.86. SECA scan completed today and interpreted with the patient. Limited time and schedule significant component for weight management at this time. Patient works 2 jobs and is not able to exercise as regularly as she was before. Has also been taking metformin for weight loss, reports slight decrease in weight in first few weeks of the medication however has now plateaued. Also experiencing diarrhea on metformin. We discussed other weight loss medications and patient is a good candidate for Wegovy. We discussed proper use of the medication as well as expected side effect profile including but not limited to nausea, constipation, abdominal pain, and heartburn. Reports no history of pancreatitis, no history in self or family of medullary thyroid cancer, and no history in self or family of multiple endocrine neoplasia syndrome type I or II. Advised this medication requires a prior authorization which can take 2 to 4 weeks. Patient understanding. At this time we will follow-up in office in approximately 4 weeks for continued management. 09/29/2024: Weight 240.3 pounds, BMI 42.56. Seca scan completed today and interpreted with patient. Down approximately 2 pounds from last office visit. Currently on Wegovy 0.25 mg weekly. Reports some nausea today after injection. No other adverse symptoms. On reviewing body composition scan patient does have lower amount of muscle, therefore encouraged patient to increase exercise with weight training. Patient understanding. Plan at this time to increase dose of Wegovy to 0.5 mg weekly. Will prophylactically send Zofran 4 mg as well as needed for nausea. She will follow- up in office in 4 weeks for further management. # Iron deficiency anemia: Continue ferrous gluconate 27 mg 1 tablet once daily. Will continue to monitor. All questions have been answered to patient's satisfaction. Patient verbalized understanding of diagnosis and treatments explained. Advised to call sooner prior to next visit it any questions/concerns arise. Case discussed with collaborating physician Gary Wilson who reviewed the assessment and plan. Chart, medications, labs, vital signs reviewed. Dictation was accomplished with the use of [employer] voice recognition software, which is prone to medical misidentifications and grammatical errors. This are unintentional and the practitioner does try to identify and correct these, but some could still be present. Please do not hesitate to contact practitioner for clarification. Plan: * Treatment: 2.??Nausea?? Start Ondansetron Tablet Disintegrating, 4 MG, 1 tablet on the tongue and allow to dissolve, Orally, 1-2 times daily As needed for nausea/vomiting, 30 days, 30, Refills 0.? * Procedure Codes:??88391 P/M HAND SINGER, INDIV 15 MIN * Images: Billing Information: * Visit Code:?? [id number] Office Visit, Est Pt., Level 4. * Procedure Codes:?? 07130 P/M HAND SINGER, INDIV 15 MIN. * Sign off status: Completed true * Provider:??ALEJANDRO LOAIZA Date:?? 025 History and Physical Notes * HPI (History of Present Illness) Category Sub-Category Detail Notes Category Not es Constitutional Elizabeth is a 39-year-old female with history of obesity status post gastric sleeve and iron deficiency anemia who presents to the office today for weight management follow-up. She was last seen in office for consultation on 08/25/2024 at which time weight was 242 pounds, BMI 42.86. Patient currently on Wegovy 0.25 mg weekly. Reports some nausea today after her injection however typically resolves with time. Reports no constipation or acid reflux. Better portion control on Wegovy, endorses that she feels zendejas faster. Has begun going back to the gym, has been doing 60 minutes of walking on the treadmill 3 times weekly for the past week. Has been trying to increase water intake. No other concerns today. Physical Examination Category Sub-Category Detail Notes Section Note s General: Age appropriate, well-appearing 39-year-old female in no acute distress, speaking in full sentences without respiratory compromise. Well groomed, well developed. Alert, interactive. Skin: Warm, dry and intact. No lesions/rashes/erythema. HEENT: Normocephalic/atraumatic. Neck/Thyroid: Thyroid symmetrical, nonenlarged, and free of nodules to palpation. Lungs: Clear to auscultation bilaterally. CV: Regular rate and rhythm without murmurs, rubs, or gallops. 2+ radial pulses bilaterally. Neuro: CN II-XII grossly intact. Steady gait with non-assisted ambulation observed. Psych: Stable mood and affect.
--- OUTSIDE RECORDS SUMMARY | 2024-10-05 11:50 | XMS_ITS | Patient Health Record ---
Author Organization [facility] Address [address] [place] [address] Care Team Providers Care Visual Training Aide Name Role Phone Mila Mobley Primary Care Provider Unavailab ALEJANDRO Lamb Unavailable [phone] ALLERGIES No Known Allergies REASON FOR REFERRAL No Information MEDICATIONS Medication SIG (Take, Route, Frequency, Duration) Notes Start Date End Date Status Vitamin D3 50 MCG (2000 UT) TAKE 1 CAPSULE BY MOUTH DAILY Oral for 30 Days Active Ferrous Gluconate 240 (27 Fe) MG TAKE 1 TABLET BY MOUTH ONCE DAILY Oral for 30 Days Active Wegovy 0.5 MG/0.5ML Inject 0.5 mg Subcut aneous once weekly for 28 days 08/25/2024 Active Vitamin A 3 MG (90316 UT) TAKE 1 CAPSULE BY MOUTH DAILY Oral for 30 Days Active Ondansetron 4 MG 1 tablet on the tong ue and allow to dissolve Orally 1-2 times daily for 30 days 09/29/2024 Active PROBLEMS Problem Type ICD Code Onset Dates Problem Status W/U Status Risk SNOMED Code Notes Problem BMI 40.0-44.9, adult (Z68.41) Active confirmed 654623276 Problem Adult-onset obesity (E66.9) Active confirmed [id number] VITAL SIGNS Heart Rate 90 /min 09/29/2024 Oximetry 99 % 09/29/2024 Blood pressure diastolic 76 mm Hg 09/29/2024 Height 63 in 09/29/2024 Blood pressure systolic 114 mm Hg 09/29/2024 Weight 240.3 lbs 09/29/2024 BMI 42.56 kg/m2 09/29/2024 Encounters Encounter Location Date Provider Diagnosis [facility] [address] [facility] [address] [place] [address] 09/22/[address] [facility] [facility] [address] [facility] [address] [facility] [address] [place] [address] 08/25/2024 ALEJANDRO LOAIZA Adult-onset obesity E66.9 ; BMI 40.0-44.9, adult Z68.41 ; Iron deficiency E61.1 and Elevated blood pressure reading R03.[address] [facility] [address] [facility] [address] [facility] [address] [place] [address] 09/29/2024 ALEJANDRO LOAIZA Adult-onset obesity E66.9 ; BMI 40.0-44.9, adult Z68.41 ; Iron deficiency E61.1 and Nausea R11.[address] [facility] [address] [facility] [address] [address] 08/25/2024 ALEJANDRO LOAIZA [address] [facility] [address] [place] [address] 09/08/2024 ALEJANDRO LOAIZA ASSESSMENTS Encounter Date Diagnosis Assessment Notes Treatment Notes Treatment Clinical Notes Section Notes 08/25/2024 BMI 40.0-44.9, adult (ICD-10 - Z68.41) Elizabeth is a 39-year-old female with history of obesity and iron deficiency anemia who presents to the office today for weight management consult. Medical history, labs, allergies, medications, and social history reviewed with the patient. Provided education on healthy diet and lifestyle which includes high-protein, low carbohydrate, high-fiber, and a variety of fruits and vegetables. Patient encouraged to exercise with emphasis on resistance training minimum 3 times per week to maintain muscle mass and cardio to burn fat. All patient questions answered. Patient will follow-up in 2 to 4 weeks for weight management. 08/25/2024: Weight 242 pounds, BMI 42.86. SECA [...] in approximately 4 weeks for continued management. # Iron deficiency anemia: Going for updated blood work with PCP next week. Will continue to monitor. Continue ferrous gluconate 27 mg 1 tablet once daily. # Elevated blood pressure: Blood pressure in office 142/98. No history of hypertension. Asymptomatic in office without chest pain, shortness of breath, diaphoresis, or dyspnea on exertion. Will continue to monitor at subsequent visits. Patient was reassured and welcomed to the practice. We discussed that we stress a hollistic medical approach with emphasis on lifestyle modification. Patient was informed that a healthy lifestyle with exercise and good eating habits can help reduce their risk of medical complications. Patient is explained that obesity increases their risk of diabetes, cardiovascular disease, or organ damage. We spent a lot of time discussing the relationship between food, exercise, sleep, mental health and obesity. Patient was counseled on the importance EATING local, organic food when possible. Patient was educated on clean 15 and dirty dozen. I provided information about reading books called The Food Rules by Zay Junior and Eat Fat Get Lean by Dr Andrea Wells. Self education is important in the journey for weight management. Patient was offered diagnostic testing/ SECA scale. We want to measure visceral adiposity, advanced body composition, adverse lipids, fatty acid balance, risk for heart disease and atherosclerosis, markers of inflammation and genetic susceptibility. Patient was counseled on weight management and was advised to lose weight using A. Meal Replacement Products Patient was educated on the replacement products called optifast. This is a good way of taking fixed amount of calories. It has been shown in studies to be ineffective weight management tool. This however has to be coupled with lifestyle intervention as well as laboratory data and EKG monitoring. It is impossible to know how a person will tolerate complete meal replacement. The side effects of meal replacement and weight loss could include syncopal attacks, dizziness, gallstones, potential cholecystectomy, possible heart attack and even . The benefits of meal replacement would be potential weight loss but no guarantees can be made. Meal replacement products are not covered by insurance. Once the patient has bought these products we cannot return them B. Lifestyle management which includes several strategies as below 1. Eat a low carbohydrate good fat good protein diet. Eliminate refined carbohydrates from the diet. Limit sugared beverages. Eat local organic when possible. Cook your own meals. Read food labels. Focus on healthy snacks. Portion control and food with low glycemic index 2. Exercise regularly. Try to get at least 6000 steps a day. Use a predominant to track activity level. Consider using apps like 7 minute excercise, myEmotientpal, lose it, stick as needed for self-monitoring and weight management. Consider group exercises. Consider hiring a personal protection specialist. Regular exercise is gonzalez to sustainable health and prevents as a buffer against weight regain 3. Sleep is most important for healing. Try to sleep at least 6-8 hours a night. A good quality sleep needs a sleep ritual with ideal room temperature of around 68. It might help to take a shower and have no electronics in the room and sleep in a very dark room without artificial light. Start sleep routine and get up early in the morning and go to bed on time. 4. Make a social connection. Surround yourself with positive people with positive energy. Connect with friends and family. 5. Get into the habit of meditating and mindfulness while doing everything. 6. Go outside and connect with nature. C. Prescription medications Patient was educated on the use of prescription medications for medical weight loss. This is a growing list and includes phentermine, Topamax,Qsymia, contrave, belviq and saxenda, wegovy etc. All prescription medications could have side effects including but not limited to kidney stones, seizure disorder cardiac arrhythmias heart attack pancreatitis, GI effects, Etc. Patient was encouraged to read the prescription insert and have coaching with their pharmacist and make an informed decision about taking medication and know that these medications are being prescribed with good intentions and we do not know how a patient would react to the medication. Some medications are FDA approved for weight loss and there is also off label use depending on patient's inability to afford medications in an attempt to lose weight D. Behavioral counseling was done to establish a relationship between food and an mood. Patient was provided information about local counseling and psychiatry and Dr Uribe at [facility]. We would like to cover regular topics and build on low glycemic eating exercise mindful eating, using yoga and meditation along with deep breathing and connecting with friends and family. E. MASS PAT reviewed, Patient's current medications were reviewed and opinion was given on medication that can cause weight gain and can be substituted F. Patient was assessed for risk with obesity including and not limiting to atherosclerosis heart disease stroke kidney disease, restrictive lung disease, irritable bowel syndrome and overall mortality. Risk of developing prediabetes diabetes and metabolic syndrome was discussed G. Therapeutic plan: We have decided to make therapeutic plan which would include choosing wisely on calories restricting portion getting active, tracking weight, getting good quality sleep and working on time management H. Patient will follow up in 4 weeks for weight management Total time spent today was 60 minutes of which greater than 50% was spent on coordinating and counseling After consultation and careful review of medical history, this patient would benefit from Wegovy based off of the following criteria met: Patient is over the age of 18, has a BMI of 42.86. Additional comorbidities include iron deficiency anemia and gastric sleeve 2 years ago. Patient has trialed other methods of weight loss including improving diet, exercise without success over three months. This medication is prescribed by or in consultation with a board certified obesity and weight management physician (Dr. Nathan Wilson or Dr. Silvana Wilson). Case discussed with collaborating physician Caro Wilson who reviewed the assessment and plan. Chart, medications, labs, vital signs reviewed. Dictation was accomplished with the use of [employer] voice recognition software, prone to medical misidentifications and grammatical errors. This is unintentional and the practitioner does try to identify and correct these, but some could still be present. Please do not hesitate to contact practitioner for clarification. All questions answered to patients satisfaction. Patient verbalized understanding of diagnosis and treatments explained. To call sooner prior to next visit it any questions/concerns arise. 08/25/2024 Adult-onset obesity (ICD-10 - E66.9) Elizabeth is a 39-year-old female with history of obesity and iron deficiency anemia who presents to the office today for weight management consult. Medical history, labs, allergies, medications, and social history reviewed with the patient. Provided education on healthy diet and lifestyle which includes high-protein, low carbohydrate, high-fiber, and a variety of fruits and vegetables. Patient encouraged to exercise with emphasis on resistance training minimum 3 times per week to maintain muscle mass and cardio to burn fat. All patient questions answered. Patient will follow-up in 2 to 4 weeks for weight management. 08/25/2024: Weight 242 pounds, BMI 42.86. SECA [...] in approximately 4 weeks for continued management. # Iron deficiency anemia: Going for updated blood work with PCP next week. Will continue to monitor. Continue ferrous gluconate 27 mg 1 tablet once daily. # Elevated blood pressure: Blood pressure in office 142/98. No history of hypertension. Asymptomatic in office without chest pain, shortness of breath, diaphoresis, or dyspnea on exertion. Will continue to monitor at subsequent visits. Patient was reassured and welcomed to the practice. We discussed that we stress a hollistic medical approach with emphasis on lifestyle modification. Patient was informed that a healthy lifestyle with exercise and good eating habits can help reduce their risk of medical complications. Patient is explained that obesity increases their risk of diabetes, cardiovascular disease, or organ damage. We spent a lot of time discussing the relationship between food, exercise, sleep, mental health and obesity. Patient was counseled on the importance EATING local, organic food when possible. Patient was educated on clean 15 and dirty dozen. I provided information about reading books called The Food Rules by Zay Junior and Eat Fat Get Lean by Dr Andrea Wells. Self education is important in the journey for weight management. Patient was offered diagnostic testing/ SECA scale. We want to measure visceral adiposity, advanced body composition, adverse lipids, fatty acid balance, risk for heart disease and atherosclerosis, markers of inflammation and genetic susceptibility. Patient was counseled on weight management and was advised to lose weight using A. Meal Replacement Products Patient was educated on the replacement products called optifast. This is a good way of taking fixed amount of calories. It has been shown in studies to be ineffective weight management tool. This however has to be coupled with lifestyle intervention as well as laboratory data and EKG monitoring. It is impossible to know how a person will tolerate complete meal replacement. The side effects of meal replacement and weight loss could include syncopal attacks, dizziness, gallstones, potential cholecystectomy, possible heart attack and even . The benefits of meal replacement would be potential weight loss but no guarantees can be made. Meal replacement products are not covered by insurance. Once the patient has bought these products we cannot return them B. Lifestyle management which includes several strategies as below 1. Eat a low carbohydrate good fat good protein diet. Eliminate refined carbohydrates from the diet. Limit sugared beverages. Eat local organic when possible. Cook your own meals. Read food labels. Focus on healthy snacks. Portion control and food with low glycemic index 2. Exercise regularly. Try to get at least 6000 steps a day. Use a predominant to track activity level. Consider using apps like 7 minute excercise, [employer]pal, lose it, stick as needed for self-monitoring and weight management. Consider group exercises. Consider hiring a personal protection specialist. Regular exercise is gonzalez to sustainable health and prevents as a buffer against weight regain 3. Sleep is most important for healing. Try to sleep at least 6-8 hours a night. A good quality sleep needs a sleep ritual with ideal room temperature of around 68. It might help to take a shower and have no electronics in the room and sleep in a very dark room without artificial light. Start sleep routine and get up early in the morning and go to bed on time. 4. Make a social connection. Surround yourself with positive people with positive energy. Connect with friends and family. 5. Get into the habit of meditating and mindfulness while doing everything. 6. Go outside and connect with nature. C. Prescription medications Patient was educated on the use of prescription medications for medical weight loss. This is a growing list and includes phentermine, Topamax,Qsymia, contrave, belviq and saxenda, wegovy etc. All prescription medications could have side effects including but not limited to kidney stones, seizure disorder cardiac arrhythmias heart attack pancreatitis, GI effects, Etc. Patient was encouraged to read the prescription insert and have coaching with their pharmacist and make an informed decision about taking medication and know that these medications are being prescribed with good intentions and we do not know how a patient would react to the medication. Some medications are FDA approved for weight loss and there is also off label use depending on patient's inability to afford medications in an attempt to lose weight D. Behavioral counseling was done to establish a relationship between food and an mood. Patient was provided information about local counseling and psychiatry and Dr Uribe at [facility]. We would like to cover regular topics and build on low glycemic eating exercise mindful eating, using yoga and meditation along with deep breathing and connecting with friends and family. E. MASS PAT reviewed, Patient's current medications were reviewed and opinion was given on medication that can cause weight gain and can be substituted F. Patient was assessed for risk with obesity including and not limiting to atherosclerosis heart disease stroke kidney disease, restrictive lung disease, irritable bowel syndrome and overall mortality. Risk of developing prediabetes diabetes and metabolic syndrome was discussed G. Therapeutic plan: We have decided to make therapeutic plan which would include choosing wisely on calories restricting portion getting active, tracking weight, getting good quality sleep and working on time management H. Patient will follow up in 4 weeks for weight management Total time spent today was 60 minutes of which greater than 50% was spent on coordinating and counseling After consultation and careful review of medical history, this patient would benefit from Wegovy based off of the following criteria met: Patient is over the age of 18, has a BMI of 42.86. Additional comorbidities include iron deficiency anemia and gastric sleeve 2 years ago. Patient has trialed other methods of weight loss including improving diet, exercise without success over three months. This medication is prescribed by or in consultation with a board certified obesity and weight management physician (Dr. Nathan Wilson or Dr. Silvana Wilson). Case discussed with collaborating physician Caro Wilson who reviewed the assessment and plan. Chart, medications, labs, vital signs reviewed. Dictation was accomplished with the use of [employer] voice recognition software, prone to medical misidentifications and grammatical errors. This is unintentional and the practitioner does try to identify and correct these, but some could still be present. Please do not hesitate to contact practitioner for clarification. All questions answered to patients satisfaction. Patient verbalized understanding of diagnosis and treatments explained. To call sooner prior to next visit it any questions/concerns arise. 09/29/2024 BMI 40.0-44.9, adult (ICD-10 - Z68.41) [...] Dictation was accomplished with the use of [employer] voice recognition software, which is prone to medical misidentifications and grammatical errors. This are unintentional and the practitioner does try to identify and correct these, but some could still be present. Please do not hesitate to contact practitioner for clarification. 09/29/2024 Adult-onset obesity (ICD-10 - E66.9) Patient [...] Dictation was accomplished with the use of [employer] voice recognition software, which is prone to medical misidentifications and grammatical errors. This are unintentional and the practitioner does try to identify and correct these, but some could still be present. Please do not hesitate to contact practitioner for clarification. 08/25/2024 Iron deficiency (ICD-10 - E61.1) Elizabeth is a 39-year-old female with history of obesity and iron deficiency anemia who presents to the office today for weight management consult. Medical history, labs, allergies, medications, and social history reviewed with the patient. Provided education on healthy diet and lifestyle which includes high-protein, low carbohydrate, high-fiber, and a variety of fruits and vegetables. Patient encouraged to exercise with emphasis on resistance training minimum 3 times per week to maintain muscle mass and cardio to burn fat. All patient questions answered. Patient will follow-up in 2 to 4 weeks for weight management. 08/25/2024: Weight 242 pounds, BMI 42.86. SECA [...] in approximately 4 weeks for continued management. # Iron deficiency anemia: Going for updated blood work with PCP next week. Will continue to monitor. Continue ferrous gluconate 27 mg 1 tablet once daily. # Elevated blood pressure: Blood pressure in office 142/98. No history of hypertension. Asymptomatic in office without chest pain, shortness of breath, diaphoresis, or dyspnea on exertion. Will continue to monitor at subsequent visits. Patient was reassured and welcomed to the practice. We discussed that we stress a hollistic medical approach with emphasis on lifestyle modification. Patient was informed that a healthy lifestyle with exercise and good eating habits can help reduce their risk of medical complications. Patient is explained that obesity increases their risk of diabetes, cardiovascular disease, or organ damage. We spent a lot of time discussing the relationship between food, exercise, sleep, mental health and obesity. Patient was counseled on the importance EATING local, organic food when possible. Patient was educated on clean 15 and dirty dozen. I provided information about reading books called The Food Rules by Zay Junior and Eat Fat Get Lean by Dr Andrea Wells. Self education is important in the journey for weight management. Patient was offered diagnostic testing/ SECA scale. We want to measure visceral adiposity, advanced body composition, adverse lipids, fatty acid balance, risk for heart disease and atherosclerosis, markers of inflammation and genetic susceptibility. Patient was counseled on weight management and was advised to lose weight using A. Meal Replacement Products Patient was educated on the replacement products called optifast. This is a good way of taking fixed amount of calories. It has been shown in studies to be ineffective weight management tool. This however has to be coupled with lifestyle intervention as well as laboratory data and EKG monitoring. It is impossible to know how a person will tolerate complete meal replacement. The side effects of meal replacement and weight loss could include syncopal attacks, dizziness, gallstones, potential cholecystectomy, possible heart attack and even . The benefits of meal replacement would be potential weight loss but no guarantees can be made. Meal replacement products are not covered by insurance. Once the patient has bought these products we cannot return them B. Lifestyle management which includes several strategies as below 1. Eat a low carbohydrate good fat good protein diet. Eliminate refined carbohydrates from the diet. Limit sugared beverages. Eat local organic when possible. Cook your own meals. Read food labels. Focus on healthy snacks. Portion control and food with low glycemic index 2. Exercise regularly. Try to get at least 6000 steps a day. Use a predominant to track activity level. Consider using apps like 7 minute excercise, myEmotientpal, lose it, stick as needed for self-monitoring and weight management. Consider group exercises. Consider hiring a personal protection specialist. Regular exercise is gonzalez to sustainable health and prevents as a buffer against weight regain 3. Sleep is most important for healing. Try to sleep at least 6-8 hours a night. A good quality sleep needs a sleep ritual with ideal room temperature of around 68. It might help to take a shower and have no electronics in the room and sleep in a very dark room without artificial light. Start sleep routine and get up early in the morning and go to bed on time. 4. Make a social connection. Surround yourself with positive people with positive energy. Connect with friends and family. 5. Get into the habit of meditating and mindfulness while doing everything. 6. Go outside and connect with nature. C. Prescription medications Patient was educated on the use of prescription medications for medical weight loss. This is a growing list and includes phentermine, Topamax,Qsymia, contrave, belviq and saxenda, wegovy etc. All prescription medications could have side effects including but not limited to kidney stones, seizure disorder cardiac arrhythmias heart attack pancreatitis, GI effects, Etc. Patient was encouraged to read the prescription insert and have coaching with their pharmacist and make an informed decision about taking medication and know that these medications are being prescribed with good intentions and we do not know how a patient would react to the medication. Some medications are FDA approved for weight loss and there is also off label use depending on patient's inability to afford medications in an attempt to lose weight D. Behavioral counseling was done to establish a relationship between food and an mood. Patient was provided information about local counseling and psychiatry and Dr Uribe at [facility]. We would like to cover regular topics and build on low glycemic eating exercise mindful eating, using yoga and meditation along with deep breathing and connecting with friends and family. E. MASS PAT reviewed, Patient's current medications were reviewed and opinion was given on medication that can cause weight gain and can be substituted F. Patient was assessed for risk with obesity including and not limiting to atherosclerosis heart disease stroke kidney disease, restrictive lung disease, irritable bowel syndrome and overall mortality. Risk of developing prediabetes diabetes and metabolic syndrome was discussed G. Therapeutic plan: We have decided to make therapeutic plan which would include choosing wisely on calories restricting portion getting active, tracking weight, getting good quality sleep and working on time management H. Patient will follow up in 4 weeks for weight management Total time spent today was 60 minutes of which greater than 50% was spent on coordinating and counseling After consultation and careful review of medical history, this patient would benefit from Wegovy based off of the following criteria met: Patient is over the age of 18, has a BMI of 42.86. Additional comorbidities include iron deficiency anemia and gastric sleeve 2 years ago. Patient has trialed other methods of weight loss including improving diet, exercise without success over three months. This medication is prescribed by or in consultation with a board certified obesity and weight management physician (Dr. Nathan Wilson or Dr. Silvana Wilson). Case discussed with collaborating physician Caro Wilson who reviewed the assessment and plan. Chart, medications, labs, vital signs reviewed. Dictation was accomplished with the use of [employer] voice recognition software, prone to medical misidentifications and grammatical errors. This is unintentional and the practitioner does try to identify and correct these, but some could still be present. Please do not hesitate to contact practitioner for clarification. All questions answered to patients satisfaction. Patient verbalized understanding of diagnosis and treatments explained. To call sooner prior to next visit it any questions/concerns arise. 09/29/2024 Iron deficiency (ICD-10 - E61.1) Patient [...] Dictation was accomplished with the use of [employer] voice recognition software, which is prone to [...] Dictation was accomplished with the use of [employer] voice recognition software, which is prone to medical misidentifications and grammatical errors. This are unintentional and the practitioner does try to identify and correct these, but some could still be present. Please do not hesitate to contact practitioner for clarification. 08/25/2024 Elevated blood pressure reading (ICD-10 - R03.0) Elizabeth is a 39-year-old female with history of obesity and iron deficiency anemia who presents to the office today for weight management consult. Medical history, labs, allergies, medications, and social history reviewed with the patient. Provided education on healthy diet and lifestyle which includes high-protein, low carbohydrate, high-fiber, and a variety of fruits and vegetables. Patient encouraged to exercise with emphasis on resistance training minimum 3 times per week to maintain muscle mass and cardio to burn fat. All patient questions answered. Patient will follow-up in 2 to 4 weeks for weight management. 08/25/2024: Weight 242 pounds, BMI 42.86. SECA [...] in approximately 4 weeks for continued management. # Iron deficiency anemia: Going for updated blood work with PCP next week. Will continue to monitor. Continue ferrous gluconate 27 mg 1 tablet once daily. # Elevated blood pressure: Blood pressure in office 142/98. No history of hypertension. Asymptomatic in office without chest pain, shortness of breath, diaphoresis, or dyspnea on exertion. Will continue to monitor at subsequent visits. Patient was reassured and welcomed to the practice. We discussed that we stress a hollistic medical approach with emphasis on lifestyle modification. Patient was informed that a healthy lifestyle with exercise and good eating habits can help reduce their risk of medical complications. Patient is explained that obesity increases their risk of diabetes, cardiovascular disease, or organ damage. We spent a lot of time discussing the relationship between food, exercise, sleep, mental health and obesity. Patient was counseled on the importance EATING local, organic food when possible. Patient was educated on clean 15 and dirty dozen. I provided information about reading books called The Food Rules by Zay Junior and Eat Fat Get Lean by Dr Andrea Wells. Self education is important in the journey for weight management. Patient was offered diagnostic testing/ SECA scale. We want to measure visceral adiposity, advanced body composition, adverse lipids, fatty acid balance, risk for heart disease and atherosclerosis, markers of inflammation and genetic susceptibility. Patient was counseled on weight management and was advised to lose weight using A. Meal Replacement Products Patient was educated on the replacement products called optifast. This is a good way of taking fixed amount of calories. It has been shown in studies to be ineffective weight management tool. This however has to be coupled with lifestyle intervention as well as laboratory data and EKG monitoring. It is impossible to know how a person will tolerate complete meal replacement. The side effects of meal replacement and weight loss could include syncopal attacks, dizziness, gallstones, potential cholecystectomy, possible heart attack and even . The benefits of meal replacement would be potential weight loss but no guarantees can be made. Meal replacement products are not covered by insurance. Once the patient has bought these products we cannot return them B. Lifestyle management which includes several strategies as below 1. Eat a low carbohydrate good fat good protein diet. Eliminate refined carbohydrates from the diet. Limit sugared beverages. Eat local organic when possible. Cook your own meals. Read food labels. Focus on healthy snacks. Portion control and food with low glycemic index 2. Exercise regularly. Try to get at least 6000 steps a day. Use a predominant to track activity level. Consider using apps like 7 minute excercise, myStyleHopnesspal, lose it, stick as needed for self-monitoring and weight management. Consider group exercises. Consider hiring a personal protection specialist. Regular exercise is gonzalez to sustainable health and prevents as a buffer against weight regain 3. Sleep is most important for healing. Try to sleep at least 6-8 hours a night. A good quality sleep needs a sleep ritual with ideal room temperature of around 68. It might help to take a shower and have no electronics in the room and sleep in a very dark room without artificial light. Start sleep routine and get up early in the morning and go to bed on time. 4. Make a social connection. Surround yourself with positive people with positive energy. Connect with friends and family. 5. Get into the habit of meditating and mindfulness while doing everything. 6. Go outside and connect with nature. C. Prescription medications Patient was educated on the use of prescription medications for medical weight loss. This is a growing list and includes phentermine, Topamax,Qsymia, contrave, belviq and saxenda, wegovy etc. All prescription medications could have side effects including but not limited to kidney stones, seizure disorder cardiac arrhythmias heart attack pancreatitis, GI effects, Etc. Patient was encouraged to read the prescription insert and have coaching with their pharmacist and make an informed decision about taking medication and know that these medications are being prescribed with good intentions and we do not know how a patient would react to the medication. Some medications are FDA approved for weight loss and there is also off label use depending on patient's inability to afford medications in an attempt to lose weight D. Behavioral counseling was done to establish a relationship between food and an mood. Patient was provided information about local counseling and psychiatry and Dr Uribe at [facility]. We would like to cover regular topics and build on low glycemic eating exercise mindful eating, using yoga and meditation along with deep breathing and connecting with friends and family. E. MASS PAT reviewed, Patient's current medications were reviewed and opinion was given on medication that can cause weight gain and can be substituted F. Patient was assessed for risk with obesity including and not limiting to atherosclerosis heart disease stroke kidney disease, restrictive lung disease, irritable bowel syndrome and overall mortality. Risk of developing prediabetes diabetes and metabolic syndrome was discussed G. Therapeutic plan: We have decided to make therapeutic plan which would include choosing wisely on calories restricting portion getting active, tracking weight, getting good quality sleep and working on time management H. Patient will follow up in 4 weeks for weight management Total time spent today was 60 minutes of which greater than 50% was spent on coordinating and counseling After consultation and careful review of medical history, this patient would benefit from Wegovy based off of the following criteria met: Patient is over the age of 20, has a BMI of 42.86. Additional comorbidities include iron deficiency anemia and gastric sleeve 2 years ago. Patient has trialed other methods of weight loss including improving diet, exercise without success over three months. This medication is prescribed by or in consultation with a board certified obesity and weight management physician (Dr. Nathan Wilson or Dr. Silvana Wilson). Case discussed with collaborating physician Caro Wilson who reviewed the assessment and plan. Chart, medications, labs, vital signs reviewed. Dictation was accomplished with the use of [employer] voice recognition software, prone to medical misidentifications and grammatical errors. This is unintentional and the practitioner does try to identify and correct these, but some could still be present. Please do not hesitate to contact practitioner for clarification. All questions answered to patients satisfaction. Patient verbalized understanding of diagnosis and treatments explained. To call sooner prior to next visit it any questions/concerns arise. PLAN OF TREATMENT Next Appt Details Provider Name:ALEJANDRO LOAIZA , 10/27/2024 02:15:00 PM, [address] [facility], [facility] [address], [place], [address], Insurance Providers Payer Name Payer Address Payer Phone Subscriber Number Group Number Insured Name Patient Relationship to Insured Coverage Start Date Coverage End Date [facility] [address] [place] [address] [phone] [id number] Elizabeth Owusu Self - patient is the insured 3
== END 2024-10-05 11:00 | disposition home or self-care (01) ==
LOC: HO.HBS 10:47
PROVIDERS: PCP Internal Medicine; Visit Provider Physician Assistant Surgical
DX: E66.813 Obesity, class 3 (principal); Z68.41 Body mass index [BMI] 40.0-44.9, adult; Z90.3 Acquired absence of stomach [part of]; Z98.84 Bariatric surgery status
CPT/HCPCS: 98012

== ENCOUNTER → 2024-10-05 10:47 | Outpatient (BNVA) | payer OTHER, SELFPAY | PROVIDERS: PCP Internal Medicine; Visit Provider Physician Assistant Surgical ==

== ENCOUNTER 2024-11-17 18:17 | Emergency (ER) | payer OTHER, SELFPAY ==
--- NOTE | ~2024-11-17 | CT_ITS ---
CLINICAL HISTORY: RLQ pain CT abdomen and pelvis without contrast Comparison: None Findings: Small hiatal hernia is present. Gallbladder is surgically absent. No focal hepatic lesions identified. The pancreas and spleen are within normal limits. Adrenal glands are unremarkable. Kidneys are non hydronephrotic. Small bilateral nonobstructing renal calculi are present. Postoperative changes are noted along the greater curvature of the stomach, likely prior partial gastrectomy. Pelvic contents unremarkable. Normal appendix. The bones are intact. Bilateral L4 pars defects noted. IMPRESSION: No acute findings. This document has been electronically signed by: Wes Wen MD, PHD on 11/17/2024 19:34:51
[2024-11-17 18:42] VITALS: BP 116/70; PULSE 128; RESP 20; TEMP 37.4; O2SAT 100; BMI 41.5
[2024-11-17 19:13] LABS: Basophils Percent Auto 0.2 % (0-2); Eosinophils Percent Auto 0.2 % (0-4); Hematocrit 28.3 % (37.0-47.0); Hemoglobin 8.6 g/dl (12.0-16.0); Imm Gran Abs Auto 0.02 X10*3/uL (0.00-0.03); Imm Gran Pct Auto 0.2 % (0.0-0.4); Lymphocytes Absolute Auto 1.2 X10*3/uL (1.2-4.9); Lymphocytes Percent Auto 14.6 % (20-40); Mean Corpuscular HGB Conc 30.4 g/dl (31.0-35.0); Mean Corpuscular Hemoglobin 19.1 pg (27.0-33.0); Mean Platelet Volume 8.9 fL (9.4-12.3); Monocytes Absolute Auto 0.3 X10*3/uL (0.1-1.2); Monocytes Percent Auto 3.3 % (2-11); Neutrophils Absolute Auto 6.8 x10*3/uL (2.0-8.3); Neutrophils Percent Auto 81.5 % (45-73); Platelet Count 530 X10*3/uL (160-400); Red Blood Count 4.51 X10*6/uL (4.20-5.50); Red Cell Distribution Width 17.4 % (11.0-16.0); White Blood Count 8.3 X10*3/uL (4.8-10.8)
[2024-11-17 19:31] LABS: Alanine Aminotransferase 12 U/L (0-31); Albumin Level 3.7 g/dL (3.5-5.0); Alkaline Phosphatase 85 U/L (39-117); Anion Gap 9 (12-20); Aspartate Amino Transferase 19 U/L (5-31); Bilirubin Total 0.5 mg/dL (0.0-1.0); Blood Urea Nitrogen 14 mg/dL (9-16); Calcium 8.8 mg/dL (8.4-10.2); Carbon Dioxide 23 mmol/L (22-29); Chloride 111 mmol/L (96-108); Creatinine Clr Calc Pharmacy 138.3; Estimated Glomerular Filt Rate > 60; Glucose Random 116 mg/dL (60-115); Magnesium 1.7 mg/dL (1.6-2.6); Potassium 3.6 mmol/L (3.3-5.1); Sodium 139 mmol/L (135-145); Total Protein 7.1 g/dL (6.5-8.0)
[2024-11-17 19:33] LABS: HCG Quantitative < 2 mIU/mL
[2024-11-17 19:35] LABS: MANUAL DIFF FLAG SCAN; Mean Corpuscular Volume 62.7 fL (80.0-98.0)
[2024-11-17 19:53] LABS: SLIDE REVIEW VERIFIED
[2024-11-17 21:35] VITALS: BP 122/74; PULSE 101; RESP 20; TEMP 37.3; O2SAT 99
--- NOTE | 2024-11-17 21:38 | ED.ABDPAIN ---
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 She reports that today while at work she had 3 episodes of loose watery stools. A few hours later she developed sharp mid lower abdominal cramping pain, associated nausea but no vomiting. She felt feverish and generally fatigued. She left work. Had a mild headache, loss of appetite. 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 She also states that she had a single episode of dysuria this evening and generalized pressure in the abdomen. Denies chest pain, hematemesis, constipation, hematochezia, melena, urinary frequency/urgency/hesitancy, hematuria. Denies pelvic pain or abnormal vaginal discharge. Denies concern for sexually transmitted infections. Denies concern for . Related Data Home Medications ?Medication ?Instructions ?Recorded ?Confirmed semaglutide (weight loss) 0.25 0.25 mg subcut QWEEK 10/05/24 10/05/24 mg/0.5 mL subcutaneous pen injector (Ciera) Previous Rx's ?Medication ?Instructions ?Recorded cholecalciferol (vitamin D3) 50 50 mcg PO DAILY #90 caps 04/23/24 mcg (2,000 unit) capsule iron,carbonyl 65 mg-vitamin C 125 1 tab PO BEDTIME #90 tabs 04/23/24 mg tablet,delayed release (Vitron-C) vitamin A palmitate 3,000 mcg 10,000 unit PO DAILY #90 caps 04/23/24 (10,000 unit) capsule Allergies Allergy/AdvReac Type Severity Reaction Status Date / Time Pollen Allergy Severe Anaphylaxis Uncoded 11/17/24 18:43 latex Allergy Intermediate Rash Uncoded 11/17/24 18:43 Review of Systems Review of Systems Yes all other systems are reviewed and are negative PMFSH Past Medical History Attestation statement: The following information was validated with the patient. Source: old records reviewed Medical History Steatosis, liver PONV (postoperative nausea and vomiting) COVID-19 vaccine series completed DJD (degenerative joint disease) Morbid obesity Surgical History History of sleeve gastrectomy Hx of tubal ligation Hx of cholecystectomy Family History Family History Mother Diabetes Father No problems noted. Sister No problems noted. Sister No problems noted. Brother No problems noted. Brother No problems noted. Son No problems noted. Daughter No problems noted. Daughter No problems noted. Daughter No problems noted. Social History Social History Are you a primary health careers instructor to a significant other at home: No Do you presently have visiting nurse or other home services: No Alcohol intake: current Alcohol intake frequency: a few times a month Patient Tobacco Use Status: Former Tobacco user Tobacco use type: Cigarette Advance Directives: No Advance Directives Information Provided: No service: No Current occupational status: employed Physical Exam ED Vital Signs: Vital Signs - 24 hr 11/17/24 18:42 11/17/24 21:35 Temperature 99.4 F 99.1 F Pulse Rate 128 H 101 H Respiratory Rate 20 20 Blood Pressure 116/70 122/74 Pulse Oximetry 100 99 Oxygen Delivery Method Room Air Room Air BMI result Body Mass Index 41.5 Appearance: Alert.?Oriented to person, place and time. No acute distress.?Normal affect.?? Neck: Normal inspection.? Neck supple.?? CVS: Heart sounds normal. Normal heart rate and rhythm.? Pulses normal.?? Respiratory: No respiratory distress.? Lung sounds clear to auscultation bilaterally?? Abdomen: Soft and non-tender. No rebound tenderness at McBurney's point. Negative psoas sign. Negative Rovsing sign. Negative King sign. No CVAT. Normoactive bowel sounds. No pulsatile mass.?? Skin: Skin warm and dry.? Normal skin color.? Extremities: No lower extremity edema.? Neuro: Moves all extremities spontaneously. Sensation intact bilaterally. Ambulates with normal steady gait. Medical Decision Making Medical Decision Making MDM Narrative: Patient is a 39-year-old female with past medical history of gastric sleeve, cholecystectomy, obesity, fatty liver, anemia, H pylori, DJD who presents emergency department for evaluation of abdominal pain described as cramping, episodes of diarrhea earlier today, nausea, and a single episode of dysuria. She arrived initially tachycardic which has greatly improved without intervention, afebrile. No tachycardia or tachypnea, no respiratory distress. No hypotension. Abdominal examination is benign. No CVA tenderness. Serum labs in addition to urinalysis and CT of the abdomen and pelvis was obtained prior to my assumption of care. CBC is without leukocytosis, has a mild microcytic anemia consistent with baseline not meeting transfusion criteria, thrombocytosis as seen previously. No significant electrolyte derangement. No CHRIS. Unremarkable LFTs and lipase. Negative hCG. Urinalysis is concentrated but without evidence to suggest infection. CT of the abdomen and pelvis reveals no acute pathology, no hydronephrosis, urolithiasis, enteritis/colitis or bowel obstruction. Reviewed with patient, suspect likely a viral gastroenteritis as etiology for her symptoms. Reviewed conservative treatment. Discussed strict return precautions. All questions answered. Stable for discharge Differential Diagnosis Differential Diagnoses: The differential diagnosis associated with the presentation includes (See narrative above) Admission/Observation Consideration of admission/observation: Escalation of care including admission/observation considered (See narrative above ) Lab Data MDM Lab Attestation statement: I reviewed the patient's lab results. (See narrative above) 11/17/24 19:06 11/17/24 19:06 Labs: Lab Results 11/17/24 11/17/24 Range/Units 19:06 21:45 WBC 8.3 (4.8-10.8) X10*3/uL RBC 4.51 (4.20-5.50) X10*6/uL Hgb 8.6 L (12.0-16.0) g/dl Hct 28.3 L (37.0-47.0) % MCV 62.7 L (80.0-98.0) fL MCH 19.1 L (27.0-33.0) pg MCHC 30.4 L (31.0-35.0) g/dl RDW 17.4 H (11.0-16.0) % Plt Count 530 H (160-400) X10*3/uL MPV 8.9 L (9.4-12.3) fL Immature Gran % (Auto) 0.2 (0.0-0.4) % Neut % (Auto) 81.5 H (45-73) % Lymph % (Auto) 14.6 L (20-40) % Amelia % (Auto) 3.3 (2-11) % Eos % (Auto) 0.2 (0-4) % Baso % (Auto) 0.2 (0-2) % Lymph # (Auto) 1.2 (1.2-4.9) X10*3/uL Amelia # (Auto) 0.3 (0.1-1.2) X10*3/uL Eos # (Auto) 0.0 (0.0-0.4) X10*3/uL Baso # (Auto) 0.0 (0.0-0.2) X10*3/uL Abs Immat Gran (auto) 0.02 (0.00-0.03) X10*3/uL Absolute Neuts (auto) 6.8 (2.0-8.3) x10*3/uL Absolute Nucleated RBC 0.000 (0.0-0.012) X10*3/uL Nucleated RBC % (auto) 0.0 (0.0-0.2) /100WBC Smear Tech's Comments VERIFIED Sodium 139 (135-145) mmol/L Potassium 3.6 (3.3-5.1) mmol/L Chloride 111 H (96-108) mmol/L Carbon Dioxide 23 (22-29) mmol/L Anion Gap 9 L (12-20) BUN 14 (9-16) mg/dL Creatinine 0.65 (0.5-1.4) mg/dL Estim Creat Clear Calc 138.3 Estimated GFR > 60 Random Glucose 116 H (60-115) mg/dL Calcium 8.8 (8.4-10.2) mg/dL Magnesium 1.7 (1.6-2.6) mg/dL Total Bilirubin 0.5 (0.0-1.0) mg/dL AST 19 (5-31) U/L ALT 12 (0-31) U/L Alkaline Phosphatase 85 (39-117) U/L Total Protein 7.1 (6.5-8.0) g/dL Albumin 3.7 (3.5-5.0) g/dL Lipase 21 (8-78) U/L Beta HCG, Quant < 2 mIU/mL Urine Color Yellow Urine Appearance Clear Urine pH 5.5 (5.0-9.0) Ur Specific [place] 1.025 (1.005-1.025) Urine Protein Trace (Neg-Trace) mg/dL Urine Glucose (UA) Negative (Negative) mg/dL Urine Ketones 40 (Negative) mg/dL Urine Blood Negative (Negative) Urine Nitrite Negative (Negative) Ur Leukocyte Esterase Trace H (Negative) Urine RBC 0-2 (0-2) /HPF Urine WBC 0-5 (0-5) /HPF Ur Squamous Epith Cells 6-10 (0-2) /HPF Urine Bacteria Trace (None Seen) Hyaline Casts 3-5 (0-2) /LPF Independent Interpretation I performed an independent interpretation of an: CT Scan (See narrative above) Radiology Impression Discussion of test interpretation with radiology: I have reviewed the radiologist's reading. Radiologist Impression: CT abdomen and pelvis without contrast Comparison: None Findings: Small hiatal hernia is present. Gallbladder is surgically absent. No focal hepatic lesions identified. The pancreas and spleen are within normal limits. Adrenal glands are unremarkable. Kidneys are non hydronephrotic. Small bilateral nonobstructing renal calculi are present. Postoperative changes are noted along the greater curvature of the stomach, likely prior partial gastrectomy. Pelvic contents unremarkable. Normal appendix. The bones are intact. Bilateral L4 pars defects noted. IMPRESSION: No acute findings. Independent Historian Clinical information obtained from an independent historian. History obtained from or confirmed by: Spouse External Record Review External record reviewed: Outpatient record Prescription Management I considered prescription management with: Pain Medication (Acetaminophen/ibuprofen) and Antibiotic (Suspect viral etiology) Chronic Conditions Patient?s care impacted by: Other (See narrative above) Discharge Plan Discharge Clinical Impression: Gastroenteritis Patient Disposition: Home, Self-Care Instructions: Gastroenteritis (ED) Additional Instructions: As discussed, blood work today is very reassuring. Urine sample does not show evidence of an infection or blood in the urine which is reassuring. testing is negative. The CT scan of your abdomen and pelvis does not show an obvious cause for the symptoms. Appendix is normal, no evidence of kidney stones or kidney infection and urine sample does not suggest an infection. I suspect that you likely came in contact with a viral gastrointestinal illness resulting in her symptoms. Be sure to rest over the next few days, consume clear liquids for the next 24 hours followed by a bland diet. Follow up with your primary care doctor. Return to emergency department any new or worsening symptoms or concerns. Prescriptions: No Action vitamin A palmitate 3,000 mcg (10,000 unit) capsule 10,000 unit PO DAILY Qty: 90 3RF cholecalciferol (vitamin D3) 50 mcg (2,000 unit) capsule 50 mcg PO DAILY Qty: 90 3RF Vitron-C 65 mg iron- 125 mg tablet,delayed release (DR/EC) 1 tab PO BEDTIME Qty: 90 3RF Wegovy 0.25 mg/0.5 mL pen injector 0.25 mg subcut QWEEK Rx Instructions: administer weeks 1 through 4 of therapy Referrals: Mila Mobley NP [Primary Care Provider] - Print Language: Romansh
[2024-11-17 21:48] LABS: Lipase 21 U/L (8-78)
[2024-11-17 21:59] LABS: Appearance Urine Clear; Color Urine Yellow; Glucose Urine UA Negative (Negative); Leukocyte Esterase Urine Trace (Negative); Nitrite Urine Negative (Negative); PH 5.5 (5.0-9.0); Specific Gravity - Urine 1.025 (1.005-1.025); UMIC TRIGGER UACC YES; Urine Blood Negative (Negative); Urine Ketones 40 mg/dL (Negative); Urine Protein Trace mg/dL (Neg-Trace)
[2024-11-17 22:06] LABS: Bacteria Urine Trace (None Seen); RBC Urine 0-2 /HPF (0-2); WBC Urine 0-5 /HPF (0-5)
[2024-11-17 23:15] VITALS: BP 122/74; PULSE 101; RESP 20; TEMP 37.3; O2SAT 99
== END 2024-11-17 23:17 | disposition home or self-care (01) ==
PROVIDERS: Nurse Practitioner Family; Physician Assistant Medical; Emergency Provider Emergency Medicine; PCP Nurse Practitioner Adult Health
DX: K52.9 Noninfective gastroenteritis and colitis, unspecified (principal); R10.31 Right lower quadrant pain; R51.9 Headache, unspecified; R30.0 Dysuria
CPT/HCPCS: 36415; 74176; 80053; 81001; 81003; 83690; 83735; 84702; 85025; 99283; 99284

== ENCOUNTER → 2024-11-17 18:46 | Outpatient (BNV) | payer OTHER, SELFPAY | PROVIDERS: PCP Nurse Practitioner Adult Health; Visit Provider General Practice | DX: R10.31 Right lower quadrant pain (principal) | CPT/HCPCS: 74176 ==

== ENCOUNTER 2025-06-04 22:21 | Emergency (ER) | payer OTHER, SELFPAY ==
--- OUTSIDE RECORDS SUMMARY | 2025-04-28 10:00 | XMS_ITS ---
Author Organization [facility] [address] Address [address] [facility] [place] [address] Care Team Providers Care Ux Architect Name Role Phone Mila Mobley Primary Care Provider Unavailab ALEJANDRO Lamb Unavailable [phone] Medications Medication SIG (Take, Route, Frequency, Duration) Notes Start Date End Date Status Vitamin A 3 MG (81101 UT) TAKE 1 CAPSULE BY MOUTH DAILY Oral; Duration: 30 Days Active Wegovy 1 MG/0.5ML Inject 1 mg Subcutan eous once weekly; Duration: 28 days Active Wegovy 1 MG/0.5ML Inject 1 mg Subcutan eous once weekly; Duration: 28 days Active Ondansetron 4 MG 1 tablet on the tongue and allow to dissolve Orally 1-2 times daily; Duration: 30 days As needed for nausea/vomiting 09/29/2024 Active Ferrous Gluconate 240 (27 Fe) MG TAKE 1 TABLET BY MOUTH ONCE DAILY Oral; Duration: 30 Days Active Vitamin D3 50 MCG (2000 UT) TAKE 1 CAPSULE BY MOUTH DAILY Oral; Duration: 30 Days Active Encounters Encounter Location Date Provider Diagnosis [facility] [address] [address] 04/28/2025 ALEJANDRO LOAIZA BMI 40.0-44.9, adult Z68.41 ; Adult-onset obesity E66.9 ; Iron deficiency E61.1 ; Nausea R11.0 ; Nutritional counseling Z71.3 and Encounter for examination of blood pressure without abnormal findings Z01.30 Assessments Encounter Date Diagnosis (ICD Code) Assessment Notes Treatment Notes Treatment Clinical Notes Section Notes 04/28/2025 BMI 40.0-44.9, adult (ICD-10 - Z68.41) Patient [...] on increasing resistance training to build muscle loss and maintain portion control. Total time spent with 30 minutes with [...] office in 4 weeks for further management. 10/27/2024: Weight 237 pounds, BMI 41.98. Seca scan completed today and interpreted with the patient. Overall she is down about 3 pounds from her last visit. Has had an approximate 3 pound decrease of fat mass. Overall maintaining good muscle mass. Currently on Wegovy 0.5 mg weekly. Has been tolerating the medication largely well, sometimes nausea after her injection however is medicating with Zofran as needed. No other adverse effects. Reviewed goals of diet and exercise as well as hydration 60 to 80 ounces daily. Plan at this time is to maintain current dose and she will follow-up in office in approximately 4 weeks for further management. 11/24/2024: Weight 235 lbs, BMI 41.62. Seca scan completed today and interpreted with the patient. Overall patient down about 2 pounds in total weight. On body analysis she is down 2 to 3 pounds of fat mass and has also gained about 2 pounds of muscle mass. Patient congratulated for this success. Visceral adipose tissue index remains within normal limits. Patient currently is on Wegovy 0.5 mg weekly. Overall has good tolerance of medication, some nausea on day of injection. We reviewed goals of diet and exercise. Plan at this time is to increase dose to 1 mg weekly. She will follow-up in office for further evaluation in 4 weeks. 12/22/2024: Weight 230 pounds, BMI 41.9. SECA scan completed and discussed with the patient. Patient is down 5 pounds from her last visit. On body analysis she is down approximately 2 pounds of fat mass, has also had an about 2 pound decrease of muscle mass. Visceral adiposity is still within normal limits at 1.0. Waist circumference is stable at 41 inches. She is now on Wegovy 1 mg weekly, has been on this dose for the past 1 to 2 weeks. Initially some nausea and mild constipation. No other significant adverse effects. Discussed goals of diet and exercise. Plan is to maintain current dose and reevaluate progress in approximately 4 to 6 weeks. 02/17/2025: Weight 229 pounds, BMI 40.56. Seca scan completed and discussed with the patient. Patient is down 1 pound from her last visit. Antibody analysis she is down 3 pounds of fat mass. Fat mass index today is 21.5. Maintaining good muscle. Visceral adiposity is 0.4 L within normal limits. Currently on Wegovy 1 mg weekly. Mild nausea however managing well with Zofran and other interventions. Discussed role of diet and exercise. Plan to maintain current dose and follow-up in 4 to 6 weeks. 03/17/2025: Weight 227 pounds, BMI 40.21. Seca scan completed and discussed with the patient. Patient is down 3 pounds overall from her last weight. On body composition analysis she is on 1 pound of fat mass. Fat mass index today is 21.4. She has had a 1 pound reduction of her muscle mass. Visceral adiposity is 0.4 L. Weight circumference similar at 38 inches. Currently on Wegovy 1 mg once weekly. States the day after injection she feels more down however resolves shortly after the next day. Discussed that can be a side effect however not common. Reports good suppression of appetite. Discussed goals of diet and exercise. Plan is to maintain current dose and follow-up in 4 to 6 weeks. 04/28/2025: # Iron deficiency anemia: Continue ferrous gluconate 27 mg 1 tablet once daily. Will continue to monitor. # Nausea: Continue Zofran 4 mg disintegrating tablet to be used once to twice daily as needed for nausea/vomiting. Will continue to monitor. All questions have been answered to patient's satisfaction. Patient verbalized understanding of diagnosis and treatments explained. Advised to call sooner prior to next visit it any questions/concerns arise. Case discussed with collaborating physician Gary Wilson who reviewed the assessment and plan. Chart, medications, labs, vital signs reviewed. Dictation was accomplished with the use of [employer] voice recognition software, which is prone to medical misidentifications and grammatical errors. This are unintentional and the practitioner does try to identify and correct these, but some could still be present. Please do not hesitate to contact practitioner for clarification. 04/28/2025 Adult-onset obesity (ICD-10 - E66.9) Patient is [...] on increasing resistance training to build muscle loss and maintain portion control. Total time spent with 30 minutes with [...] office in 4 weeks for further management. 10/27/2024: Weight 237 pounds, BMI 41.98. Seca scan completed today and interpreted with the patient. Overall she is down about 3 pounds from her last visit. Has had an approximate 3 pound decrease of fat mass. Overall maintaining good muscle mass. Currently on Wegovy 0.5 mg weekly. Has been tolerating the medication largely well, sometimes nausea after her injection however is medicating with Zofran as needed. No other adverse effects. Reviewed goals of diet and exercise as well as hydration 60 to 80 ounces daily. Plan at this time is to maintain current dose and she will follow-up in office in approximately 4 weeks for further management. 11/24/2024: Weight 235 lbs, BMI 41.62. Seca scan completed today and interpreted with the patient. Overall patient down about 2 pounds in total weight. On body analysis she is down 2 to 3 pounds of fat mass and has also gained about 2 pounds of muscle mass. Patient congratulated for this success. Visceral adipose tissue index remains within normal limits. Patient currently is on Wegovy 0.5 mg weekly. Overall has good tolerance of medication, some nausea on day of injection. We reviewed goals of diet and exercise. Plan at this time is to increase dose to 1 mg weekly. She will follow-up in office for further evaluation in 4 weeks. 12/22/2024: Weight 230 pounds, BMI 41.9. SECA scan completed and discussed with the patient. Patient is down 5 pounds from her last visit. On body analysis she is down approximately 2 pounds of fat mass, has also had an about 2 pound decrease of muscle mass. Visceral adiposity is still within normal limits at 1.0. Waist circumference is stable at 41 inches. She is now on Wegovy 1 mg weekly, has been on this dose for the past 1 to 2 weeks. Initially some nausea and mild constipation. No other significant adverse effects. Discussed goals of diet and exercise. Plan is to maintain current dose and reevaluate progress in approximately 4 to 6 weeks. 02/17/2025: Weight 229 pounds, BMI 40.56. Seca scan completed and discussed with the patient. Patient is down 1 pound from her last visit. Antibody analysis she is down 3 pounds of fat mass. Fat mass index today is 21.5. Maintaining good muscle. Visceral adiposity is 0.4 L within normal limits. Currently on Wegovy 1 mg weekly. Mild nausea however managing well with Zofran and other interventions. Discussed role of diet and exercise. Plan to maintain current dose and follow-up in 4 to 6 weeks. 03/17/2025: Weight 227 pounds, BMI 40.21. Seca scan completed and discussed with the patient. Patient is down 3 pounds overall from her last weight. On body composition analysis she is on 1 pound of fat mass. Fat mass index today is 21.4. She has had a 1 pound reduction of her muscle mass. Visceral adiposity is 0.4 L. Weight circumference similar at 38 inches. Currently on Wegovy 1 mg once weekly. States the day after injection she feels more down however resolves shortly after the next day. Discussed that can be a side effect however not common. Reports good suppression of appetite. Discussed goals of diet and exercise. Plan is to maintain current dose and follow-up in 4 to 6 weeks. 04/28/2025: # Iron deficiency anemia: Continue ferrous gluconate 27 mg 1 tablet once daily. Will continue to monitor. # Nausea: Continue Zofran 4 mg disintegrating tablet to be used once to twice daily as needed for nausea/vomiting. Will continue to monitor. All questions have been answered to patient's satisfaction. Patient verbalized understanding of diagnosis and treatments explained. Advised to call sooner prior to next visit it any questions/concerns arise. Case discussed with collaborating physician Gary Wilson who reviewed the assessment and plan. Chart, medications, labs, vital signs reviewed. Dictation was accomplished with the use of [employer] voice recognition software, which is prone to medical misidentifications and grammatical errors. This are unintentional and the practitioner does try to identify and correct these, but some could still be present. Please do not hesitate to contact practitioner for clarification. 04/28/2025 Iron deficiency (ICD-10 - E61.1) Patient is [...] on increasing resistance training to build muscle loss and maintain portion control. Total time spent with 30 minutes with [...] office in 4 weeks for further management. 10/27/2024: Weight 237 pounds, BMI 41.98. Seca scan completed today and interpreted with the patient. Overall she is down about 3 pounds from her last visit. Has had an approximate 3 pound decrease of fat mass. Overall maintaining good muscle mass. Currently on Wegovy 0.5 mg weekly. Has been tolerating the medication largely well, sometimes nausea after her injection however is medicating with Zofran as needed. No other adverse effects. Reviewed goals of diet and exercise as well as hydration 60 to 80 ounces daily. Plan at this time is to maintain current dose and she will follow-up in office in approximately 4 weeks for further management. 11/24/2024: Weight 235 lbs, BMI 41.62. Seca scan completed today and interpreted with the patient. Overall patient down about 2 pounds in total weight. On body analysis she is down 2 to 3 pounds of fat mass and has also gained about 2 pounds of muscle mass. Patient congratulated for this success. Visceral adipose tissue index remains within normal limits. Patient currently is on Wegovy 0.5 mg weekly. Overall has good tolerance of medication, some nausea on day of injection. We reviewed goals of diet and exercise. Plan at this time is to increase dose to 1 mg weekly. She will follow-up in office for further evaluation in 4 weeks. 12/22/2024: Weight 230 pounds, BMI 41.9. SECA scan completed and discussed with the patient. Patient is down 5 pounds from her last visit. On body analysis she is down approximately 2 pounds of fat mass, has also had an about 2 pound decrease of muscle mass. Visceral adiposity is still within normal limits at 1.0. Waist circumference is stable at 41 inches. She is now on Wegovy 1 mg weekly, has been on this dose for the past 1 to 2 weeks. Initially some nausea and mild constipation. No other significant adverse effects. Discussed goals of diet and exercise. Plan is to maintain current dose and reevaluate progress in approximately 4 to 6 weeks. 02/17/2025: Weight 229 pounds, BMI 40.56. Seca scan completed and discussed with the patient. Patient is down 1 pound from her last visit. Antibody analysis she is down 3 pounds of fat mass. Fat mass index today is 21.5. Maintaining good muscle. Visceral adiposity is 0.4 L within normal limits. Currently on Wegovy 1 mg weekly. Mild nausea however managing well with Zofran and other interventions. Discussed role of diet and exercise. Plan to maintain current dose and follow-up in 4 to 6 weeks. 03/17/2025: Weight 227 pounds, BMI 40.21. Seca scan completed and discussed with the patient. Patient is down 3 pounds overall from her last weight. On body composition analysis she is on 1 pound of fat mass. Fat mass index today is 21.4. She has had a 1 pound reduction of her muscle mass. Visceral adiposity is 0.4 L. Weight circumference similar at 38 inches. Currently on Wegovy 1 mg once weekly. States the day after injection she feels more down however resolves shortly after the next day. Discussed that can be a side effect however not common. Reports good suppression of appetite. Discussed goals of diet and exercise. Plan is to maintain current dose and follow-up in 4 to 6 weeks. 04/28/2025: # Iron deficiency anemia: Continue ferrous gluconate 27 mg 1 tablet once daily. Will continue to monitor. # Nausea: Continue Zofran 4 mg disintegrating tablet to be used once to twice daily as needed for nausea/vomiting. Will continue to monitor. All questions have been answered to patient's satisfaction. Patient verbalized understanding of diagnosis and treatments explained. Advised to call sooner prior to next visit it any questions/concerns arise. Case discussed with collaborating physician Gary Wilson who reviewed the assessment and plan. Chart, medications, labs, vital signs reviewed. Dictation was accomplished with the use of [employer] voice recognition software, which is prone to medical misidentifications and grammatical errors. This are unintentional and the practitioner does try to identify and correct these, but some could still be present. Please do not hesitate to contact practitioner for clarification. 04/28/2025 Nausea (ICD-10 - R11.0) Patient is here [...] on increasing resistance training to build muscle loss and maintain portion control. Total time spent with 30 minutes with [...] office in 4 weeks for further management. 10/27/2024: Weight 237 pounds, BMI 41.98. Seca scan completed today and interpreted with the patient. Overall she is down about 3 pounds from her last visit. Has had an approximate 3 pound decrease of fat mass. Overall maintaining good muscle mass. Currently on Wegovy 0.5 mg weekly. Has been tolerating the medication largely well, sometimes nausea after her injection however is medicating with Zofran as needed. No other adverse effects. Reviewed goals of diet and exercise as well as hydration 60 to 80 ounces daily. Plan at this time is to maintain current dose and she will follow-up in office in approximately 4 weeks for further management. 11/24/2024: Weight 235 lbs, BMI 41.62. Seca scan completed today and interpreted with the patient. Overall patient down about 2 pounds in total weight. On body analysis she is down 2 to 3 pounds of fat mass and has also gained about 2 pounds of muscle mass. Patient congratulated for this success. Visceral adipose tissue index remains within normal limits. Patient currently is on Wegovy 0.5 mg weekly. Overall has good tolerance of medication, some nausea on day of injection. We reviewed goals of diet and exercise. Plan at this time is to increase dose to 1 mg weekly. She will follow-up in office for further evaluation in 4 weeks. 12/22/2024: Weight 230 pounds, BMI 41.9. SECA scan completed and discussed with the patient. Patient is down 5 pounds from her last visit. On body analysis she is down approximately 2 pounds of fat mass, has also had an about 2 pound decrease of muscle mass. Visceral adiposity is still within normal limits at 1.0. Waist circumference is stable at 41 inches. She is now on Wegovy 1 mg weekly, has been on this dose for the past 1 to 2 weeks. Initially some nausea and mild constipation. No other significant adverse effects. Discussed goals of diet and exercise. Plan is to maintain current dose and reevaluate progress in approximately 4 to 6 weeks. 02/17/2025: Weight 229 pounds, BMI 40.56. Seca scan completed and discussed with the patient. Patient is down 1 pound from her last visit. Antibody analysis she is down 3 pounds of fat mass. Fat mass index today is 21.5. Maintaining good muscle. Visceral adiposity is 0.4 L within normal limits. Currently on Wegovy 1 mg weekly. Mild nausea however managing well with Zofran and other interventions. Discussed role of diet and exercise. Plan to maintain current dose and follow-up in 4 to 6 weeks. 03/17/2025: Weight 227 pounds, BMI 40.21. Seca scan completed and discussed with the patient. Patient is down 3 pounds overall from her last weight. On body composition analysis she is on 1 pound of fat mass. Fat mass index today is 21.4. She has had a 1 pound reduction of her muscle mass. Visceral adiposity is 0.4 L. Weight circumference similar at 38 inches. Currently on Wegovy 1 mg once weekly. States the day after injection she feels more down however resolves shortly after the next day. Discussed that can be a side effect however not common. Reports good suppression of appetite. Discussed goals of diet and exercise. Plan is to maintain current dose and follow-up in 4 to 6 weeks. 04/28/2025: # Iron deficiency anemia: Continue ferrous gluconate 27 mg 1 tablet once daily. Will continue to monitor. # Nausea: Continue Zofran 4 mg disintegrating tablet to be used once to twice daily as needed for nausea/vomiting. Will continue to monitor. All questions have been answered to patient's satisfaction. Patient verbalized understanding of diagnosis and treatments explained. Advised to call sooner prior to next visit it any questions/concerns arise. Case discussed with collaborating physician Gary Wilsno who reviewed the assessment and plan. Chart, medications, labs, vital signs reviewed. Dictation was accomplished with the use of [employer] voice recognition software, which is prone to medical misidentifications and grammatical errors. This are unintentional and the practitioner does try to identify and correct these, but some could still be present. Please do not hesitate to contact practitioner for clarification. 04/28/2025 Nutritional counseling (ICD-10 - Z71.3) Patient is here for weight management follow-up. [...] on increasing resistance training to build muscle loss and maintain portion control. Total time spent with 30 minutes with [...] office in 4 weeks for further management. 10/27/2024: Weight 237 pounds, BMI 41.98. Seca scan completed today and interpreted with the patient. Overall she is down about 3 pounds from her last visit. Has had an approximate 3 pound decrease of fat mass. Overall maintaining good muscle mass. Currently on Wegovy 0.5 mg weekly. Has been tolerating the medication largely well, sometimes nausea after her injection however is medicating with Zofran as needed. No other adverse effects. Reviewed goals of diet and exercise as well as hydration 60 to 80 ounces daily. Plan at this time is to maintain current dose and she will follow-up in office in approximately 4 weeks for further management. 11/24/2024: Weight 235 lbs, BMI 41.62. Seca scan completed today and interpreted with the patient. Overall patient down about 2 pounds in total weight. On body analysis she is down 2 to 3 pounds of fat mass and has also gained about 2 pounds of muscle mass. Patient congratulated for this success. Visceral adipose tissue index remains within normal limits. Patient currently is on Wegovy 0.5 mg weekly. Overall has good tolerance of medication, some nausea on day of injection. We reviewed goals of diet and exercise. Plan at this time is to increase dose to 1 mg weekly. She will follow-up in office for further evaluation in 4 weeks. 12/22/2024: Weight 230 pounds, BMI 41.9. SECA scan completed and discussed with the patient. Patient is down 5 pounds from her last visit. On body analysis she is down approximately 2 pounds of fat mass, has also had an about 2 pound decrease of muscle mass. Visceral adiposity is still within normal limits at 1.0. Waist circumference is stable at 41 inches. She is now on Wegovy 1 mg weekly, has been on this dose for the past 1 to 2 weeks. Initially some nausea and mild constipation. No other significant adverse effects. Discussed goals of diet and exercise. Plan is to maintain current dose and reevaluate progress in approximately 4 to 6 weeks. 02/17/2025: Weight 229 pounds, BMI 40.56. Seca scan completed and discussed with the patient. Patient is down 1 pound from her last visit. Antibody analysis she is down 3 pounds of fat mass. Fat mass index today is 21.5. Maintaining good muscle. Visceral adiposity is 0.4 L within normal limits. Currently on Wegovy 1 mg weekly. Mild nausea however managing well with Zofran and other interventions. Discussed role of diet and exercise. Plan to maintain current dose and follow-up in 4 to 6 weeks. 03/17/2025: Weight 227 pounds, BMI 40.21. Seca scan completed and discussed with the patient. Patient is down 3 pounds overall from her last weight. On body composition analysis she is on 1 pound of fat mass. Fat mass index today is 21.4. She has had a 1 pound reduction of her muscle mass. Visceral adiposity is 0.4 L. Weight circumference similar at 38 inches. Currently on Wegovy 1 mg once weekly. States the day after injection she feels more down however resolves shortly after the next day. Discussed that can be a side effect however not common. Reports good suppression of appetite. Discussed goals of diet and exercise. Plan is to maintain current dose and follow-up in 4 to 6 weeks. 04/28/2025: # Iron deficiency anemia: Continue ferrous gluconate 27 mg 1 tablet once daily. Will continue to monitor. # Nausea: Continue Zofran 4 mg disintegrating tablet to be used once to twice daily as needed for nausea/vomiting. Will continue to monitor. All questions have been answered to patient's satisfaction. Patient verbalized understanding of diagnosis and treatments explained. Advised to call sooner prior to next visit it any questions/concerns arise. Case discussed with collaborating physician Gary Wilson who reviewed the assessment and plan. Chart, medications, labs, vital signs reviewed. Dictation was accomplished with the use of [employer] voice recognition software, which is prone to medical misidentifications and grammatical errors. This are unintentional and the practitioner does try to identify and correct these, but some could still be present. Please do not hesitate to contact practitioner for clarification. 04/28/2025 Encounter for examination of blood pressure without abnormal findings (ICD-10 - Z01.30) Patient is here for weight management follow-up. [...] on increasing resistance training to build muscle loss and maintain portion control. Total time spent with 30 minutes with [...] office in 4 weeks for further management. 10/27/2024: Weight 237 pounds, BMI 41.98. Seca scan completed today and interpreted with the patient. Overall she is down about 3 pounds from her last visit. Has had an approximate 3 pound decrease of fat mass. Overall maintaining good muscle mass. Currently on Wegovy 0.5 mg weekly. Has been tolerating the medication largely well, sometimes nausea after her injection however is medicating with Zofran as needed. No other adverse effects. Reviewed goals of diet and exercise as well as hydration 60 to 80 ounces daily. Plan at this time is to maintain current dose and she will follow-up in office in approximately 4 weeks for further management. 11/24/2024: Weight 235 lbs, BMI 41.62. Seca scan completed today and interpreted with the patient. Overall patient down about 2 pounds in total weight. On body analysis she is down 2 to 3 pounds of fat mass and has also gained about 2 pounds of muscle mass. Patient congratulated for this success. Visceral adipose tissue index remains within normal limits. Patient currently is on Wegovy 0.5 mg weekly. Overall has good tolerance of medication, some nausea on day of injection. We reviewed goals of diet and exercise. Plan at this time is to increase dose to 1 mg weekly. She will follow-up in office for further evaluation in 4 weeks. 12/22/2024: Weight 230 pounds, BMI 41.9. SECA scan completed and discussed with the patient. Patient is down 5 pounds from her last visit. On body analysis she is down approximately 2 pounds of fat mass, has also had an about 2 pound decrease of muscle mass. Visceral adiposity is still within normal limits at 1.0. Waist circumference is stable at 41 inches. She is now on Wegovy 1 mg weekly, has been on this dose for the past 1 to 2 weeks. Initially some nausea and mild constipation. No other significant adverse effects. Discussed goals of diet and exercise. Plan is to maintain current dose and reevaluate progress in approximately 4 to 6 weeks. 02/17/2025: Weight 229 pounds, BMI 40.56. Seca scan completed and discussed with the patient. Patient is down 1 pound from her last visit. Antibody analysis she is down 3 pounds of fat mass. Fat mass index today is 21.5. Maintaining good muscle. Visceral adiposity is 0.4 L within normal limits. Currently on Wegovy 1 mg weekly. Mild nausea however managing well with Zofran and other interventions. Discussed role of diet and exercise. Plan to maintain current dose and follow-up in 4 to 6 weeks. 03/17/2025: Weight 227 pounds, BMI 40.21. Seca scan completed and discussed with the patient. Patient is down 3 pounds overall from her last weight. On body composition analysis she is on 1 pound of fat mass. Fat mass index today is 21.4. She has had a 1 pound reduction of her muscle mass. Visceral adiposity is 0.4 L. Weight circumference similar at 38 inches. Currently on Wegovy 1 mg once weekly. States the day after injection she feels more down however resolves shortly after the next day. Discussed that can be a side effect however not common. Reports good suppression of appetite. Discussed goals of diet and exercise. Plan is to maintain current dose and follow-up in 4 to 6 weeks. 04/28/2025: # Iron deficiency anemia: Continue ferrous gluconate 27 mg 1 tablet once daily. Will continue to monitor. # Nausea: Continue Zofran 4 mg disintegrating tablet to be used once to twice daily as needed for nausea/vomiting. Will continue to monitor. All questions have been answered to patient's satisfaction. Patient verbalized understanding of diagnosis and treatments explained. Advised to call sooner prior to next visit it any questions/concerns arise. Case discussed with collaborating physician Gary Wilson who reviewed the assessment and plan. Chart, medications, labs, vital signs reviewed. Dictation was accomplished with the use of [employer] voice recognition software, which is prone to medical misidentifications and grammatical errors. This are unintentional and the practitioner does try to identify and correct these, but some could still be present. Please do not hesitate to contact practitioner for clarification. Plan Of Treatment Medication Medication Name Sig Start Date Stop Date Notes Wegovy 1 MG/0.5ML Inject 1 mg Subcutan eous once weekly; Duration: 28 days Next Appt Details Provider Name:ALEJANDRO LOAIZA , 07/01/2025 02:30:00 PM, [address] [facility], [facility] [address], [place], [address], Progress Notes * Elizabeth BARNARDDOB: 1985 (40 yo F)Acc No.[id number]:04/28/2025 Patient: Elizabeth GARCIA Provider: S JORGE LUIS HOLLINSJAME :1985 A ge:40 Y S ex:Female Date:04/28/2025 Address:[facility] [address], [facility] Pcp:Mila Mobley Subjective: * Chief Complaints: * * HPI: C onstitutional: Elizabeth is a 40-year-old female with history of obesity status post gastric sleeve and iron deficiency anemia who presents today for weight management follow-up. She was last seen on 03/17/2025 at which time weight was 227 pounds, BMI 40.21. Patient currently is on Wegovy 1 mg once weekly. * ROS: C onstitutional: Denies sudden weight loss, fever, night sweats, excessive fatigue, or changes in sleep. CV: Denies chest pain or heart palpitations. Respiratory: Denies SOB, wheezing, or pleuritic pain. GI: Denies n/v/d, constipation, blood in stools, pain associated with eating, indigestion, or difficulty/pain with swallowing. MSK: Denies back pain, joint deformity/pain, or muscle weakness. Integumentary: Denies skin changes. Endocrine: Denies polyuria, polyphagia, or polydipsia. No heat/cold intolerance or excessive thirst. * Medical History: * Medications: T aking Vitamin D3 50 MCG (1999 UT) Capsule TAKE 1 CAPSULE BY MOUTH DAILY Oral , Taking Vitamin A 3 MG (43122 UT) Capsule TAKE 1 CAPSULE BY MOUTH DAILY Oral , Taking Ferrous Gluconate 240 (27 Fe) MG Tablet TAKE 1 TABLET BY MOUTH ONCE DAILY Oral , Taking Ondansetron 4 MG Tablet Disintegrating 1 tablet on the tongue and allow to dissolve Orally 1-2 times daily As needed for nausea/vomiting, Taking Wegovy 1 MG/0.5ML Solution Auto-injector Inject 1 mg Subcutaneous once weekly Objective: * Vitals: * Physical Examination: G eneral: Age appropriate, well-appearing 40-year-old female in no acute distress, speaking in [...] ambulation observed. Psych: Stable mood and affect. Assessment: * Assessment: 1. A dult-onset obesity - E66.9 (Primary) 2 . B LA 40.0-44.9, adult - Z68.41 3 . I rony deficiency - E61.1 4 . N ausea - R11.0 ? 5 . N utritional counseling - Z71.3 6 . E ncounter for examination of blood pressure without abnormal findings - Z01.30 Patient is here for weight m anagement [...] on increasing resistance training to build muscle loss and maintain portion control. Total time spent with 30 minutes with [...] office in 4 weeks for further management. 10/27/2024: Weight 237 pounds, BMI 41.98. Seca scan completed today and interpreted with the patient. Overall she is down about 3 pounds from her last visit. Has had an approximate 3 pound decrease of fat mass. Overall maintaining good muscle mass. Currently on Wegovy 0.5 mg weekly. Has been tolerating the medication largely well, sometimes nausea after her injection however is medicating with Zofran as needed. No other adverse effects. Reviewed goals of diet and exercise as well as hydration 60 to 80 ounces daily. Plan at this time is to maintain current dose and she will follow-up in office in approximately 4 weeks for further management. 11/24/2024: Weight 235 lbs, BMI 41.62. Seca scan completed today and interpreted with the patient. Overall patient down about 2 pounds in total weight. On body analysis she is down 2 to 3 pounds of fat mass and has also gained about 2 pounds of muscle mass. Patient congratulated for this success. Visceral adipose tissue index remains within normal limits. Patient currently is on Wegovy 0.5 mg weekly. Overall has good tolerance of medication, some nausea on day of injection. We reviewed goals of diet and exercise. Plan at this time is to increase dose to 1 mg weekly. She will follow-up in office for further evaluation in 4 weeks. 12/22/2024: Weight 230 pounds, BMI 41.9. SECA scan completed and discussed with the patient. Patient is down 5 pounds from her last visit. On body analysis she is down approximately 2 pounds of fat mass, has also had an about 2 pound decrease of muscle mass. Visceral adiposity is still within normal limits at 1.0. Waist circumference is stable at 41 inches. She is now on Wegovy 1 mg weekly, has been on this dose for the past 1 to 2 weeks. Initially some nausea and mild constipation. No other significant adverse effects. Discussed goals of diet and exercise. Plan is to maintain current dose and reevaluate progress in approximately 4 to 6 weeks. 02/17/2025: Weight 229 pounds, BMI 40.56. Seca scan completed and discussed with the patient. Patient is down 1 pound from her last visit. Antibody analysis she is down 3 pounds of fat mass. Fat mass index today is 21.5. Maintaining good muscle. Visceral adiposity is 0.4 L within normal limits. Currently on Wegovy 1 mg weekly. Mild nausea however managing well with Zofran and other interventions. Discussed role of diet and exercise. Plan to maintain current dose and follow-up in 4 to 6 weeks. 03/17/2025: Weight 227 pounds, BMI 40.21. Seca scan completed and discussed with the patient. Patient is down 3 pounds overall from her last weight. On body composition analysis she is on 1 pound of fat mass. Fat mass index today is 21.4. She has had a 1 pound reduction of her muscle mass. Visceral adiposity is 0.4 L. Weight circumference similar at 38 inches. Currently on Wegovy 1 mg once weekly. States the day after injection she feels more down however resolves shortly after the next day. Discussed that can be a side effect however not common. Reports good suppression of appetite. Discussed goals of diet and exercise. Plan is to maintain current dose and follow-up in 4 to 6 weeks. 04/28/2025: # Iron deficiency anemia: Continue ferrous gluconate 27 mg 1 tablet once daily. Will continue to monitor. # Nausea: Continue Zofran 4 mg disintegrating tablet to be used once to twice daily as needed for nausea/vomiting. Will continue to monitor. All questions have been answered to patient's satisfaction. Patient verbalized understanding of diagnosis and treatments explained. Advised to call sooner prior to next visit it any questions/concerns arise. Case discussed with collaborating physician Gary Wilson who reviewed the assessment and plan. Chart, medications, labs, vital signs reviewed. Dictation was accomplished with the use of [employer] voice recognition software, which is prone to medical misidentifications and grammatical errors. This are unintentional and the practitioner does try to identify and correct these, but some could still be present. Please do not hesitate to contact practitioner for clarification. Plan: * Treatment: * Images: Billing Information: * Visit Code: * Procedure Codes: * Electronic signature of SEFERINO LOAIZA PA-C, [id number] on 06/04/2025 at 10:56 PM EDT Sign off status: Pending * Provider: Sergio LOAIZA Date: 0 04/28/2025 Generated for Kai rosario/Hoang/Shayla on: 1 10:56 PM EDT History and Physical Notes * HPI (History of Present Illness) Category Sub-Category Detail Notes Category Not es Constitutional Elizabeth is a 40-year-old female with history of obesity status post gastric sleeve and iron deficiency anemia who presents today for weight management follow-up. She was last seen on 03/17/2025 at which time weight was 227 pounds, BMI 40.21. Patient currently is on Wegovy 1 mg once weekly. Physical Examination Category Sub-Category Detail Notes Section Note s General: Age appropriate, well-appearing 40-year-old female in no acute distress, speaking in [...]
--- OUTSIDE RECORDS SUMMARY | 2025-05-05 09:45 | XMS_ITS ---
Author Organization [facility] [address] Address [address] [facility] [place] [address] Care Team Providers Care Title Vehicle Service Attendant Name Role Phone Mila Mobley Primary Care Provider Unavailab ALEJANDRO Lamb [phone] Medications Medication SIG (Take, Route, Frequency, Duration) Notes Start Date End Date Status Wegovy 1 MG/0.5ML Inject 1 mg Subcutan eous once weekly; Duration: 28 days Active Wegovy 1 MG/0.5ML Inject 1 mg Subcutan eous once weekly; Duration: 28 days Active Vitamin A 3 MG (37066 UT) TAKE 1 CAPSULE BY MOUTH DAILY Oral; Duration: 30 Days Active Ferrous Gluconate 240 (27 Fe) MG TAKE 1 TABLET BY MOUTH ONCE DAILY Oral; Duration: 30 Days Active Ondansetron 4 MG 1 tablet on the tongue and allow to dissolve Orally 1-2 times daily; Duration: 30 days As needed for nausea/vomiting 09/29/2024 Active Vitamin D3 50 MCG (2000 UT) TAKE 1 CAPSULE BY MOUTH DAILY Oral; Duration: 30 Days Active Encounters Encounter Location Date Provider Diagnosis [facility] [address] [address] 05/05/2025 ALEJANDRO LOAIZA Plan Of Treatment Next Appt Details Provider Name:ALEJANDRO LOAIZA , 07/01/2025 02:30:00 PM, [address] [facility], [place] [address], [place], [address], Progress Notes * MARTI DE ARANDA, YessicaDOB: 1985 (40 yo F)Acc No.[id number]:05/05/2025 Patient: C LAROS DE ARANDA, Elizabeth Provider: Sergio LOAIZA :1985 A ge:40 Y S ex:Female Date:05/05/2025 Address:[facility] [address], [facility] [place], [place] Pcp:Mila Mobley Subjective: * Chief Complaints: * * Medical History: * Medications: T aking Vitamin D3 50 MCG (2000 UT) Capsule TAKE 1 CAPSULE BY MOUTH DAILY Oral , Taking Vitamin A 3 MG (86635 UT) Capsule TAKE 1 CAPSULE BY MOUTH DAILY Oral , Taking Ferrous Gluconate 240 (27 Fe) MG Tablet TAKE 1 TABLET BY MOUTH ONCE DAILY Oral , Taking Ondansetron 4 MG Tablet Disintegrating 1 tablet on the tongue and allow to dissolve Orally 1-2 times daily As needed for nausea/vomiting, Taking Wegovy 1 MG/0.5ML Solution Auto-injector Inject 1 mg Subcutaneous once weekly , Taking Wegovy 1 MG/0.5ML Solution Auto-injector Inject 1 mg Subcutaneous once weekly Objective: * Vitals: Assessment: Plan: * Treatment: * Procedure Codes: 9 9199 NO SHOW OFFICE VISIT * Images: Billing Information: * Visit Code: * Procedure Codes: 39951 NO SHOW OFFICE VISIT. * Electronic signature of SEFERINO LOAIZA PA-C, [id number] on 06/04/2025 at 10:57 PM EDT Sign off status: Pending * Provider: Sergio LOAIZA Date: 0 05/05/2025 Generated for Kai rosario/Hoang/eTmaximiliansmitting on: 1 10:57 PM EDT
--- OUTSIDE RECORDS SUMMARY | 2025-06-03 10:30 | XMS_ITS ---
Author Organization [facility] [address] Address [address] [place] [address] Care Team Providers Care Induction Machine Operator Name Role Phone Mila Mobley Primary Care Provider Unavailab ALEJANDRO Lamb Unavailable [phone] Allergies No Known Allergies REASON FOR VISIT pt here for wt mgt seca done Medications Medication SIG (Take, Route, Frequency, Duration) [...] DAILY Oral; Duration: 30 Days Active Vitamin A 3 MG (70681 UT) TAKE 1 CAPSULE BY MOUTH DAILY Oral; Duration: 30 Days Active Wegovy 1 MG/0.5ML Inject 1 mg Subcutan eous once weekly; Duration: 28 days Active Vitamin D3 50 MCG (2000 UT) TAKE 1 CAPSULE BY MOUTH DAILY Oral; Duration: 30 Days Active Vital Signs Heart Rate 79 /min 06/03/2025 Blood pressure systolic 110 mm Hg 06/03/20 25 Blood pressure diastolic 80 mm Hg 025 Weight 233 lbs 06/03/2025 BMI 41.27 kg/m2 06/03/2025 Height 63 in 06/03/2025 Oximetry 99 % 06/03/2025 Encounters Encounter Location Date Provider Diagnosis [facility] [address] [place] [address] 06/03/2025 ALEJANDRO LOAIZA BMI 40.0-44.9, adult Z68.41 ; Adult-onset obesity E66.9 ; Iron deficiency E61.1 ; Nausea R11.0 ; Nutritional counseling Z71.3 and Encounter for examination of blood pressure without abnormal findings Z01.30 Assessments Encounter Date Diagnosis (ICD Code) Assessment Notes Treatment Notes Treatment Clinical Notes Section Notes 06/03/2025 BMI 40.0-44.9, adult (ICD-10 - Z68.41) Patient [...] and follow-up in 4 to 6 weeks. 06/03/2025: Weight 233 pounds, BMI 41.27. Seca scan completed and discussed results with the patient. Weight has increased by 5 pounds since her last visit. On body composition analysis fat mass has increased by approximately 3 pounds with index today of 21.9. Muscle mass has reduced by 1 pound. Visceral adiposity today is stable at 0.4 L. She has been off of Wegovy for the past month due to insurance coverage. Will attempt to renew prior authorization. Discussed goals with diet and exercise. Follow-up in 4 to 6 weeks. # Iron deficiency anemia: Continue ferrous gluconate [...] Dictation was accomplished with the use of [employer] voice recognition software, which is prone to medical misidentifications and grammatical errors. This are unintentional and the practitioner does try to identify and correct these, but some could still be present. Please do not hesitate to contact practitioner for clarification. 06/03/2025 Adult-onset obesity (ICD-10 - E66.9) Patient is [...] and follow-up in 4 to 6 weeks. 06/03/2025: Weight 233 pounds, BMI 41.27. Seca scan completed and discussed results with the patient. Weight has increased by 5 pounds since her last visit. On body composition analysis fat mass has increased by approximately 3 pounds with index today of 21.9. Muscle mass has reduced by 1 pound. Visceral adiposity today is stable at 0.4 L. She has been off of Wegovy for the past month due to insurance coverage. Will attempt to renew prior authorization. Discussed goals with diet and exercise. Follow-up in 4 to 6 weeks. # Iron deficiency anemia: Continue ferrous gluconate [...] Dictation was accomplished with the use of [employer] voice recognition software, which is prone to medical misidentifications and grammatical errors. This are unintentional and the practitioner does try to identify and correct these, but some could still be present. Please do not hesitate to contact practitioner for clarification. 06/03/2025 Iron deficiency (ICD-10 - E61.1) Patient is [...] and follow-up in 4 to 6 weeks. 06/03/2025: Weight 233 pounds, BMI 41.27. Seca scan completed and discussed results with the patient. Weight has increased by 5 pounds since her last visit. On body composition analysis fat mass has increased by approximately 3 pounds with index today of 21.9. Muscle mass has reduced by 1 pound. Visceral adiposity today is stable at 0.4 L. She has been off of Wegovy for the past month due to insurance coverage. Will attempt to renew prior authorization. Discussed goals with diet and exercise. Follow-up in 4 to 6 weeks. # Iron deficiency anemia: Continue ferrous gluconate [...] Dictation was accomplished with the use of [employer] voice recognition software, which is prone to medical misidentifications and grammatical errors. This are unintentional and the practitioner does try to identify and correct these, but some could still be present. Please do not hesitate to contact practitioner for clarification. 06/03/2025 Nausea (ICD-10 - R11.0) Patient is here [...] and follow-up in 4 to 6 weeks. 06/03/2025: Weight 233 pounds, BMI 41.27. Seca scan completed and discussed results with the patient. Weight has increased by 5 pounds since her last visit. On body composition analysis fat mass has increased by approximately 3 pounds with index today of 21.9. Muscle mass has reduced by 1 pound. Visceral adiposity today is stable at 0.4 L. She has been off of Wegovy for the past month due to insurance coverage. Will attempt to renew prior authorization. Discussed goals with diet and exercise. Follow-up in 4 to 6 weeks. # Iron deficiency anemia: Continue ferrous gluconate [...] Dictation was accomplished with the use of [employer] voice recognition software, which is prone to medical misidentifications and grammatical errors. This are unintentional and the practitioner does try to identify and correct these, but some could still be present. Please do not hesitate to contact practitioner for clarification. 06/03/2025 Nutritional counseling (ICD-10 - Z71.3) Patient is [...] and follow-up in 4 to 6 weeks. 06/03/2025: Weight 233 pounds, BMI 41.27. Seca scan completed and discussed results with the patient. Weight has increased by 5 pounds since her last visit. On body composition analysis fat mass has increased by approximately 3 pounds with index today of 21.9. Muscle mass has reduced by 1 pound. Visceral adiposity today is stable at 0.4 L. She has been off of Wegovy for the past month due to insurance coverage. Will attempt to renew prior authorization. Discussed goals with diet and exercise. Follow-up in 4 to 6 weeks. # Iron deficiency anemia: Continue ferrous gluconate [...] Dictation was accomplished with the use of [employer] voice recognition software, which is prone to medical misidentifications and grammatical errors. This are unintentional and the practitioner does try to identify and correct these, but some could still be present. Please do not hesitate to contact practitioner for clarification. 06/03/2025 Encounter for examination of blood pressure without [...] and follow-up in 4 to 6 weeks. 06/03/2025: Weight 233 pounds, BMI 41.27. Seca scan completed and discussed results with the patient. Weight has increased by 5 pounds since her last visit. On body composition analysis fat mass has increased by approximately 3 pounds with index today of 21.9. Muscle mass has reduced by 1 pound. Visceral adiposity today is stable at 0.4 L. She has been off of Wegovy for the past month due to insurance coverage. Will attempt to renew prior authorization. Discussed goals with diet and exercise. Follow-up in 4 to 6 weeks. # Iron deficiency anemia: Continue ferrous gluconate [...] Dictation was accomplished with the use of [employer] voice recognition software, which is prone to medical misidentifications and grammatical errors. This are unintentional and the practitioner does try to identify and correct these, but some could still be present. Please do not hesitate to contact practitioner for clarification. Plan Of Treatment Next Appt Details Provider Name:ALEJANDRO LOAIZA , 07/01/2025 02:30:00 PM, [address] [place] [address], [phone], Progress Notes * Wilian BARNARDsicaDOB: 1985 (40 yo F)Acc No.[id number]:06/03/2025 Patient: Ni Elizabeth JOHN Provider: Sergio JORGE LUIS LOAIZA :1985 A ge:40 Y S ex:Female Date:06/03/2025 Address:[facility] [address], [facility] [place], [id number] Pcp:Mila Mobley Subjective: * Chief Complaints: * 1 . Pt here for wt mgt seca done. * HPI: C onstitutional: Elizabeth is a 40-year-old female with history of obesity status post gastric sleeve and iron deficiency anemia who presents today for weight management follow-up. Last seen on 03/17/2025 at which time weight was 227 pounds, BMI 40.21. Patient has been off of Wegovy for the last month. Reports issue with her insurance, may need a new prior authorization. States that since being off the medication, initially was able to manage cravings however over the last 2 weeks nighttime cravings have increased which have been more difficult to manage. States that she has been less active in the gym. No other significant concerns. * ROS: C onstitutional: Denies sudden weight [...] intolerance or excessive thirst. * Medical History: O besity, Iron deficiency anemia. * Surgical History: g astric sleeve . * Hospitalization/Major Diagno stic Procedure: D enies Past Hospitalization. * Family History: F ather: . M other: . 2 brother(s) , 2 sister(s) - healthy. 1 son(s) , 3 daughter(s) - healthy. . * Medications: T aking Vitamin D3 50 MCG (2000 UT) Capsule TAKE 1 CAPSULE BY MOUTH DAILY Oral , Taking Vitamin A 3 MG (06700 UT) Capsule TAKE 1 CAPSULE BY MOUTH [...] Inject 1 mg Subcutaneous once weekly , Medication List reviewed and reconciled with the patient * Allergies: N .K.D.A. Objective: * Vitals: H R:79/min, BP:110/80mm Hg, Wt:233lbs, BMI:41.27Index, Ht: 63 in, Oxygen sat %:99%. * Physical Examination: G eneral: Age appropriate, [...] obesity - E66.9 (Primary) 2 . B MN 40.0-44.9, adult - Z68.41 3 . I [...] and follow-up in 4 to 6 weeks. 06/03/2025: Weight 233 pounds, BMI 41.27. Seca scan completed and discussed results with the patient. Weight has increased by 5 pounds since her last visit. On body composition analysis fat mass has increased by approximately 3 pounds with index today of 21.9. Muscle mass has reduced by 1 pound. Visceral adiposity today is stable at 0.4 L. She has been off of Wegovy for the past month due to insurance coverage. Will attempt to renew prior authorization. Discussed goals with diet and exercise. Follow-up in 4 to 6 weeks. # Iron deficiency anemia: Continue ferrous gluconate [...] Dictation was accomplished with the use of [employer] voice recognition software, which is prone to medical misidentifications and grammatical errors. This are unintentional and the practitioner does try to identify and correct these, but some could still be present. Please do not hesitate to contact practitioner for clarification. 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 Modifiers: SA * Procedure Codes: 30375 P/M CARDIOVASCULAR LAB DIRECTOR, INDIV 15 MIN. Modifiers: 33, SA 3074F SYST BP LT 130 MM HG. 3079F DIAST BP 80-89 MM HG. * Sign off status: Completed true * Provider: Sergio LOAIZA Date: Generated for Kai rosario/Hoang/eTransmitting on: 10:56 PM EDT History and Physical Notes * HPI (History of Present Illness) Category Sub-Category Detail Notes Category Not es Constitutional Elizabeth is a 40-year-old female with history of obesity status post gastric sleeve and iron deficiency anemia who presents today for weight management follow-up. Last seen on 03/17/2025 at which time weight was 227 pounds, BMI 40.21. Patient has been off of Wegovy for the last month. Reports issue with her insurance, may need a new prior authorization. States that since being off the medication, initially was able to manage cravings however over the last 2 weeks nighttime cravings have increased which have been more difficult to manage. States that she has been less active in the gym. No other significant concerns. Physical Examination Category Sub-Category Detail Notes Section [...]
[2025-06-04 22:25] VITALS: BP 139/77; PULSE 85; RESP 16; TEMP 36.7; O2SAT 100; BMI 41.1
--- OUTSIDE RECORDS SUMMARY | 2025-06-04 22:57 | XMS_ITS | Patient Health Record ---
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 Name Role Phone Mila Mobley Primary Care Provider Unavailab ALEJANDRO Lamb Unavailable [phone] Allergies No Known Allergies Reason For Referral No Information Medications Medication SIG (Take, Route, Frequency, Duration) Notes Start Date End Date Status Vitamin D3 50 MCG (1999 UT) TAKE 1 CAPSULE BY MOUTH DAILY [...] 30 Days Active Vitamin A 3 MG (73756 UT) TAKE 1 CAPSULE BY MOUTH DAILY Oral; Duration: 30 Days Active Wegovy 1 MG/0.5ML Inject 1 mg Subcutan eous once weekly; Duration: 28 days Active Problems Problem Type SNOMED Code ICD Code Onset Dates Problem Status W/U Status Risk Notes Problem Body mass index 40+ - morbidly obese (023496570) BMI 40.0-44.9, adult (Z68.41) Active confirmed Problem Adult-onset obesity (456310913) Adult-onset obesity (E66.9) Active confirmed Vital Signs Heart Rate 79 /min 06/03/2025 Oximetry 99 % 06/03/2025 Blood pressure diastolic 80 mm Hg 06/03/2025 Height 63 in 06/03/2025 Blood pressure systolic 110 mm Hg 06/03/2025 Weight 233 lbs 06/03/2025 BMI 41.27 kg/m2 06/03/2025 Encounters Encounter Location Date Provider Diagnosis [facility] [address] [place] [address] 08/25/2024 ALEJANDRO BIRKS [facility] [address] [place] [address] 09/08/2024 ALEJANDRO BIRKS [facility] [address] [place] [address] 12/15/2024 ALEJANDRO BIRKS [facility] [address] [place] [address] 02/03/2025 ALEJANDRO BIRKS [facility] [address] [place] [phone] 02/09/2025 ALEJANDRO BIRKS Adult-onset obesity E66.9 [facility] [address] [place] [phone] 02/17/2025 ALEJANDRO BIRKS [facility] [address] [place] [address] 04/19/2025 ALEJANDRO BIRKS Adult-onset obesity E66.9 [facility] [address] [place] [phone] 05/06/2025 ALEJANDRO BIRKS [facility] [address] [place] [phone] 06/03/2025 ALEJANDRO BIRKS Adult-onset obesity E66.9 [facility] [address] [address] 08/25/2024 ALEJANDRO BIRKS Adult-onset obesity E66.9 ; BMI 40.0-44.9, adult Z68.41 ; Iron deficiency E61.1 and Elevated blood pressure reading R03.0 [facility] [address] [place] [phone] 09/29/2024 ALEJANDRO BIRKS Adult-onset obesity E66.9 ; BMI 40.0-44.9, adult Z68.41 ; Iron deficiency E61.1 and Nausea R11.0 [facility] [address] [address] 10/27/2024 ALEJANDRO BIRKS Adult-onset obesity E66.9 ; BMI 40.0-44.9, adult Z68.41 ; Iron deficiency E61.1 and Nausea R11.0 [facility] [address] 11/24/2024 ALEJANDRO JOSSE Adult-onset obesity E66.9 ; BMI 40.0-44.9, adult Z68.41 ; Iron deficiency E61.1 ; Nausea R11.0 and Nutritional counseling Z71.3 [facility] [address] 12/22/2024 ALEJANDRO JOSSE Adult-onset obesity E66.9 ; BMI 40.0-44.9, adult Z68.41 ; Iron deficiency E61.1 ; Nausea R11.0 and Nutritional counseling Z71.3 [facility] [address] 02/17/2025 ALEJANDRO JOSSE Adult-onset obesity E66.9 ; BMI 40.0-44.9, adult Z68.41 ; Iron deficiency E61.1 ; Nausea R11.0 ; Nutritional counseling Z71.3 and Encounter for examination of blood pressure without abnormal findings Z01.30 [facility] [address] 03/17/2025 ALEJANDRO JOSSE BMI 40.0-44.9, adult Z68.41 ; Adult-onset obesity E66.9 ; Iron deficiency E61.1 ; Nausea R11.0 ; Nutritional counseling Z71.3 and Encounter for examination of blood pressure without abnormal findings Z01.30 [facility] [address] 06/03/2025 ALEJANDRO JOSSE BMI 40.0-44.9, adult Z68.41 ; Adult-onset obesity E66.9 ; Iron deficiency E61.1 ; Nausea R11.0 ; Nutritional counseling Z71.3 and Encounter for examination of blood pressure without abnormal findings Z01.30 [facility] [address] 02/02/2025 ALEJANDRO JOSSE [facility] [address] 05/05/2025 ALEJANDRO LOAIZA Assessments Encounter Date Diagnosis (ICD Code) Assessment Notes Treatment Notes Treatment Clinical Notes Section Notes 08/25/2024 Adult-onset obesity (ICD-10 - E66.9) Elizabeth [...] Consider using apps like 7 minute excercise, myfitnesspal, lose it, stick as needed for self-monitoring and weight management. Consider group exercises. Consider hiring a personal fitness trainer. Regular exercise is gonzalez to sustainable health [...] counseling and psychiatry and Dr Uribe at [email or web address]. We would like to cover regular topics [...] Dictation was accomplished with the use of Locket voice recognition software, prone to medical misidentifications [...] next visit it any questions/concerns arise. 08/25/2024 BMI 40.0-44.9, adult (ICD-10 - Z68.41) [...] Consider using apps like 7 minute excercise, [employer], lose it, stick as needed for self-monitoring and weight management. Consider group exercises. Consider hiring a personal fitness trainer. Regular exercise is gonzalez to sustainable health [...] counseling and psychiatry and Dr Uribe at [email or web address]. We would like to cover regular topics [...] Dictation was accomplished with the use of Locket voice recognition software, prone to medical misidentifications [...] next visit it any questions/concerns arise. 09/29/2024 Adult-onset obesity (ICD-10 - E66.9) Patient [...] Dictation was accomplished with the use of Locket voice recognition software, which is prone to [...] Dictation was accomplished with the use of Locket voice recognition software, which is prone to medical misidentifications and grammatical errors. This are unintentional and the practitioner does try to identify and correct these, but some could still be present. Please do not hesitate to contact practitioner for clarification. 10/27/2024 Adult-onset obesity (ICD-10 - E66.9) Patient is [...] in approximately 4 weeks for further management. # Iron [...] Dictation was accomplished with the use of Locket voice recognition software, which is prone to medical misidentifications and grammatical errors. This are unintentional and the practitioner does try to identify and correct these, but some could still be present. Please do not hesitate to contact practitioner for clarification. 11/24/2024 Adult-onset obesity (ICD-10 - E66.9) Patient is [...] office for further evaluation in 4 weeks. # Iron deficiency anemia: Continue ferrous [...] Dictation was accomplished with the use of Locket voice recognition software, which is prone to medical misidentifications and grammatical errors. This are unintentional and the practitioner does try to identify and correct these, but some could still be present. Please do not hesitate to contact practitioner for clarification. 11/24/2024 BMI 40.0-44.9, adult (ICD-10 - Z68.41) Patient [...] office for further evaluation in 4 weeks. # Iron deficiency anemia: Continue ferrous [...] Dictation was accomplished with the use of Locket voice recognition software, which is prone to medical misidentifications and grammatical errors. This are unintentional and the practitioner does try to identify and correct these, but some could still be present. Please do not hesitate to contact practitioner for clarification. 12/22/2024 Adult-onset obesity (ICD-10 - E66.9) Patient is [...] progress in approximately 4 to 6 weeks. # Iron deficiency [...] Dictation was accomplished with the use of Locket voice recognition software, which is prone to medical misidentifications and grammatical errors. This are unintentional and the practitioner does try to identify and correct these, but some could still be present. Please do not hesitate to contact practitioner for clarification. 02/09/2025 Adult-onset obesity (ICD-10 - E66.9) 02/17/2025 Adult-onset obesity (ICD-10 - E66.9) Patient is [...] and follow-up in 4 to 6 weeks. # Iron [...] Dictation was accomplished with the use of Locket voice recognition software, which is prone to medical misidentifications and grammatical errors. This are unintentional and the practitioner does try to identify and correct these, but some could still be present. Please do not hesitate to contact practitioner for clarification. 02/17/2025 BMI 40.0-44.9, adult (ICD-10 - Z68.41) Patient [...] and follow-up in 4 to 6 weeks. # Iron [...] Dictation was accomplished with the use of Locket voice recognition software, which is prone to medical misidentifications and grammatical errors. This are unintentional and the practitioner does try to identify and correct these, but some could still be present. Please do not hesitate to contact practitioner for clarification. 03/17/2025 BMI 40.0-44.9, adult (ICD-10 - Z68.41) Patient [...] and follow-up in 4 to 6 weeks. # Iron [...] questions/concerns arise. Case discussed with collaborating physician Gayr Wilson who reviewed the assessment and plan. Chart, medications, labs, vital signs reviewed. Dictation was accomplished with the use of Locket voice recognition software, which is prone to medical misidentifications and grammatical errors. This are unintentional and the practitioner does try to identify and correct these, but some could still be present. Please do not hesitate to contact practitioner for clarification. 04/19/2025 Adult-onset obesity (ICD-10 - E66.9) 06/03/2025 BMI 40.0-44.9, adult (ICD-10 - Z68.41) [...] Dictation was accomplished with the use of Locket voice recognition software, which is prone to [...] Dictation was accomplished with the use of Locket voice recognition software, which is prone to medical misidentifications and grammatical errors. This are unintentional and the practitioner does try to identify and correct these, but some could still be present. Please do not hesitate to contact practitioner for clarification. 06/03/2025 Adult-onset obesity (ICD-10 - E66.9) Electronic Prior Authorization was requested for Wegovy 1 MG/0.5ML Solution Auto-injector. Provider can order medication once approval received. 03/17/2025 Adult-onset obesity (ICD-10 - E66.9) Patient is [...] and follow-up in 4 to 6 weeks. # Iron [...] Dictation was accomplished with the use of Locket voice recognition software, which is prone to medical misidentifications and grammatical errors. This are unintentional and the practitioner does try to identify and correct these, but some could still be present. Please do not hesitate to contact practitioner for clarification. 02/17/2025 Iron deficiency (ICD-10 - E61.1) Patient is [...] and follow-up in 4 to 6 weeks. # Iron [...] Dictation was accomplished with the use of Locket voice recognition software, which is prone to medical misidentifications and grammatical errors. This are unintentional and the practitioner does try to identify and correct these, but some could still be present. Please do not hesitate to contact practitioner for clarification. 12/22/2024 BMI 40.0-44.9, adult (ICD-10 - Z68.41) Patient [...] progress in approximately 4 to 6 weeks. # Iron deficiency [...] Dictation was accomplished with the use of Locket voice recognition software, which is prone to medical misidentifications and grammatical errors. This are unintentional and the practitioner does try to identify and correct these, but some could still be present. Please do not hesitate to contact practitioner for clarification. 11/24/2024 Iron deficiency (ICD-10 - E61.1) Patient is [...] office for further evaluation in 4 weeks. # Iron deficiency anemia: Continue ferrous [...] Dictation was accomplished with the use of Locket voice recognition software, which is prone to medical misidentifications and grammatical errors. This are unintentional and the practitioner does try to identify and correct these, but some could still be present. Please do not hesitate to contact practitioner for clarification. 10/27/2024 BMI 40.0-44.9, adult (ICD-10 - Z68.41) Patient [...] in approximately 4 weeks for further management. # Iron [...] Dictation was accomplished with the use of Locket voice recognition software, which is prone to [...] Dictation was accomplished with the use of Locket voice recognition software, which is prone to [...] Consider using apps like 7 minute excercise, myGlassPoint Solarpal, lose it, stick as needed for self-monitoring and weight management. Consider group exercises. Consider hiring a personal fitness trainer. Regular exercise is gonzalez to sustainable health [...] counseling and psychiatry and Dr Uribe at [email or web address]. We would like to cover regular topics [...] Dictation was accomplished with the use of Locket voice recognition software, prone to medical misidentifications [...] next visit it any questions/concerns arise. 08/25/2024 Elevated blood pressure reading (ICD-10 - [...] Consider using apps like 7 minute excercise, [employer]Glass[employer] Solarpal, lose it, stick as needed for self-monitoring and weight management. Consider group exercises. Consider hiring a personal fitness trainer. Regular exercise is gonzalez to sustainable health [...] counseling and psychiatry and Dr Uribe at [email or web address]. We would like to cover regular topics [...] Dictation was accomplished with the use of Locket voice recognition software, prone to medical misidentifications [...] next visit it any questions/concerns arise. 09/29/2024 Nausea (ICD-10 - R11.0) Patient is [...] Dictation was accomplished with the use of Locket voice recognition software, which is prone to medical misidentifications and grammatical errors. This are unintentional and the practitioner does try to identify and correct these, but some could still be present. Please do not hesitate to contact practitioner for clarification. 10/27/2024 Iron deficiency (ICD-10 - E61.1) Patient is [...] in approximately 4 weeks for further management. # Iron [...] Dictation was accomplished with the use of Locket voice recognition software, which is prone to medical misidentifications and grammatical errors. This are unintentional and the practitioner does try to identify and correct these, but some could still be present. Please do not hesitate to contact practitioner for clarification. 11/24/2024 Nausea (ICD-10 - R11.0) Patient is here [...] office for further evaluation in 4 weeks. # Iron deficiency anemia: Continue ferrous [...] Dictation was accomplished with the use of Locket voice recognition software, which is prone to medical misidentifications and grammatical errors. This are unintentional and the practitioner does try to identify and correct these, but some could still be present. Please do not hesitate to contact practitioner for clarification. 12/22/2024 Iron deficiency (ICD-10 - E61.1) Patient is [...] progress in approximately 4 to 6 weeks. # Iron deficiency [...] Dictation was accomplished with the use of Locket voice recognition software, which is prone to medical misidentifications and grammatical errors. This are unintentional and the practitioner does try to identify and correct these, but some could still be present. Please do not hesitate to contact practitioner for clarification. 02/17/2025 Nausea (ICD-10 - R11.0) Patient is here [...] and follow-up in 4 to 6 weeks. # Iron [...] Dictation was accomplished with the use of Locket voice recognition software, which is prone to medical misidentifications and grammatical errors. This are unintentional and the practitioner does try to identify and correct these, but some could still be present. Please do not hesitate to contact practitioner for clarification. 03/17/2025 Iron deficiency (ICD-10 - E61.1) Patient is [...] and follow-up in 4 to 6 weeks. # Iron [...] Dictation was accomplished with the use of Locket voice recognition software, which is prone to [...] Dictation was accomplished with the use of Locket voice recognition software, which is prone to [...] Dictation was accomplished with the use of Locket voice recognition software, which is prone to medical misidentifications and grammatical errors. This are unintentional and the practitioner does try to identify and correct these, but some could still be present. Please do not hesitate to contact practitioner for clarification. 03/17/2025 Nausea (ICD-10 - R11.0) Patient is here [...] and follow-up in 4 to 6 weeks. # Iron [...] Dictation was accomplished with the use of Locket voice recognition software, which is prone to medical misidentifications and grammatical errors. This are unintentional and the practitioner does try to identify and correct these, but some could still be present. Please do not hesitate to contact practitioner for clarification. 02/17/2025 Nutritional counseling (ICD-10 - Z71.3) Patient is [...] and follow-up in 4 to 6 weeks. # Iron [...] Dictation was accomplished with the use of Locket voice recognition software, which is prone to medical misidentifications and grammatical errors. This are unintentional and the practitioner does try to identify and correct these, but some could still be present. Please do not hesitate to contact practitioner for clarification. 12/22/2024 Nausea (ICD-10 - R11.0) Patient is here [...] progress in approximately 4 to 6 weeks. # Iron deficiency [...] Dictation was accomplished with the use of Locket voice recognition software, which is prone to medical misidentifications and grammatical errors. This are unintentional and the practitioner does try to identify and correct these, but some could still be present. Please do not hesitate to contact practitioner for clarification. 11/24/2024 Nutritional counseling (ICD-10 - Z71.3) Patient is [...] office for further evaluation in 4 weeks. # Iron deficiency anemia: Continue ferrous [...] Dictation was accomplished with the use of Locket voice recognition software, which is prone to medical misidentifications and grammatical errors. This are unintentional and the practitioner does try to identify and correct these, but some could still be present. Please do not hesitate to contact practitioner for clarification. 10/27/2024 Nausea (ICD-10 - R11.0) Patient is here [...] in approximately 4 weeks for further management. # Iron [...] Dictation was accomplished with the use of Locket voice recognition software, which is prone to medical misidentifications and grammatical errors. This are unintentional and the practitioner does try to identify and correct these, but some could still be present. Please do not hesitate to contact practitioner for clarification. 12/22/2024 Nutritional counseling (ICD-10 - Z71.3) Patient is [...] progress in approximately 4 to 6 weeks. # Iron deficiency [...] Dictation was accomplished with the use of Locket voice recognition software, which is prone to medical misidentifications and grammatical errors. This are unintentional and the practitioner does try to identify and correct these, but some could still be present. Please do not hesitate to contact practitioner for clarification. 02/17/2025 Encounter for examination of blood pressure without [...] and follow-up in 4 to 6 weeks. # Iron [...] Dictation was accomplished with the use of Locket voice recognition software, which is prone to medical misidentifications and grammatical errors. This are unintentional and the practitioner does try to identify and correct these, but some could still be present. Please do not hesitate to contact practitioner for clarification. 03/17/2025 Nutritional counseling (ICD-10 - Z71.3) Patient is [...] and follow-up in 4 to 6 weeks. # Iron [...] Dictation was accomplished with the use of Locket voice recognition software, which is prone to [...] Dictation was accomplished with the use of Locket voice recognition software, which is prone to [...] Dictation was accomplished with the use of Locket voice recognition software, which is prone to medical misidentifications and grammatical errors. This are unintentional and the practitioner does try to identify and correct these, but some could still be present. Please do not hesitate to contact practitioner for clarification. 03/17/2025 Encounter for examination of blood pressure without [...] and follow-up in 4 to 6 weeks. # Iron [...] Dictation was accomplished with the use of Locket voice recognition software, which is prone to medical misidentifications and grammatical errors. This are unintentional and the practitioner does try to identify and correct these, but some could still be present. Please do not hesitate to contact practitioner for clarification. 04/28/2025 Patient is here for weight management follow-up. [...] Dictation was accomplished with the use of Locket voice recognition software, which is prone to medical misidentifications and grammatical errors. This are unintentional and the practitioner does try to identify and correct these, but some could still be present. Please do not hesitate to contact practitioner for clarification. Plan Of Treatment Next Appt Details Provider Name:ALEJANDRO LOAIZA , 07/01/2025 02:30:00 PM, [address] [facility], [facility] [address], [place], [address], Insurance Providers Payer Name Payer Address Payer Phone Subscriber Number Group Number Insured Name Patient Relationship to Insured Coverage Start Date Coverage End Date [facility] [address] [place] [address] [phone] [id number] Elizabeth Owusu Self - patient is the insured 3 Medical (General) History Medical History History ICD Code obesity iron deficiency anemia Surgical History Surgery Date(Month/Year) gastric sleeve
--- NOTE | 2025-06-05 00:02 | ED_ITS ---
HPI - General Adult General Chief complaint: Skin/Abscess/Foreign Body Stated complaint: Finger lac at work Time Seen by Provider: 06/04/25 23:01 Source: patient, RN notes reviewed and old records reviewed Mode of arrival: ambulatory Limitations: no limitations History of Present Illness ED Provider: Heriberto HPI narrative: 40-year-old female presents for evaluation of a finger laceration. 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 She reports that she accidentally cut the tip of her left 3rd finger with a knife while at work. She reports her last tetanus was about 3 years ago Bleeding is controlled Related Data Home Medications ?Medication ?Instructions ?Recorded ?Confirmed semaglutide (weight loss) 0.25 0.25 mg subcut QWEEK 10/05/24 mg/0.5 mL subcutaneous pen injector (Wegovyaneth) Previous Rx's ?Medication ?Instructions ?Recorded cholecalciferol (vitamin D3) 50 50 mcg PO DAILY #90 ca ps 04/23/24 mcg (2,000 unit) capsule iron,carbonyl 65 mg-vitamin C 125 1 tab PO BEDTIME #90 tabs 04/23/24 mg tablet,delayed release (Vitron-C) vitamin A palmitate 3,000 mcg 10,000 unit PO DAILY #90 caps 04/23/24 (10,000 unit) capsule Allergies Allergy/AdvReac Type Severity Reaction Status Date / Time Pollen Allergy Severe Anaphylaxis Uncoded 06/04/25 22:27 latex Allergy Intermediate Rash Uncoded 06/04/25 22:27 Review of Systems Integumentary/Breasts: Skin/Breast: Reports wounds PMFSH Past Medical History Medical History Steatosis, liver PONV (postoperative nausea and vomiting) COVID-19 vaccine series completed DJD (degenerative joint disease) Morbid obesity Surgical History History of sleeve gastrectomy Hx of tubal ligation Hx of cholecystectomy Family History Family History Mother Diabetes Father No problems noted. Sister No problems noted. Sister No problems noted. Brother No problems noted. Brother No problems noted. Son No problems noted. Daughter No problems noted. Daughter No problems noted. Daughter No problems noted. Social History Social History Are you a primary care transitions manager to a significant other at home: No Do you presently have visiting nurse or other home services: No Alcohol intake: current Alcohol intake frequency: a few times a month Patient Tobacco Use Status: Former Tobacco user Tobacco use type: Cigarette Advance Directives: No Advance Directives Information Provided: No service: No Current occupational status: employed Physical Exam ED Vital Signs: Vital Signs - 24 hr 06/04/25 22:25 Temperature 98.1 F Pulse Rate 85 Respiratory Rate 16 Blood Pressure 139/77 Pulse Oximetry 100 Oxygen Delivery Method Room Air BMI result Body Mass Index 41.1 Const General: healthy appearing, comfortable, no acute distress, alert and awake Nutritional Appearance: well nourished Orientation/consciousness: patient oriented x3 HENMT Head: Yes normocephalic and Yes atraumatic Neck Neck: Yes full ROM Resp Effort & Inspection: normal respiratory effort, able to speak in complete sentences and not labored Skin Other: That has a 2 cm, curvilinear laceration to the tip of the left 3rd finger dorsal surface. Is approximately 75% of the wound edges of the nail plate with the about 5 mm extending on the radial side of the left 3rd fingertip. General skin exam: elasticity normal Neuro General: patient oriented x3 Cranial nerves: Yes Bilaterally intact EOM present Cognition (Neuro): normal cognition Extrem Other: Moving all extremities well without any obvious deformities Medications Administered Discontinued Medications Generic Name Dose Route Start Last Admin Trade Name Freq PRN Reason Stop Dose Admin Lidocaine HCl 10 ml 06/04/25 23:17 06/05/25 00:15 Lidocaine Hcl 1 % 20 Ml Vial INFILTRATI 06/04/25 23:18 10 ml ONCE ONE Administration Procedures Laceration Laceration 1: Site: hand Side (If applicable): left Size (cm): 2 Description: linear Depth: simple, single layer Local Anesthetic: lidocaine 1% (Digital block) Amount of anesthesia used (mL): 2 Skin layer closed with: nylon Size (cm): 4-0 Number of sutures: 4 Medical Decision Making Medical Decision Making MDM Narrative: 40-year-old female presents for evaluation of an accidental finger laceration. Her tetanus up-to-date. She had a laceration to the nail plate. Four sutures were used to reapproximate the wound, 2 sutures are through the nail plate. The wound edges came together well. Differential Diagnosis Differential Diagnoses: The differential diagnosis associated with the presentation includes Laceration Skin tear Puncture wound Abrasion Discharge Plan Discharge Clinical Impression: Finger laceration Patient Disposition: Home, Self-Care Instructions: Finger Laceration (ED) Additional Instructions: You had 4 sutures placed 2nd removed in 14 days. You should keep the area clean and dry. You may follow up with your primary doctor or return here if they are unable to remove the sutures Prescriptions: No Action vitamin A palmitate 3,000 mcg (10,000 unit) capsule 10,000 unit PO DAILY Qty: 90 3RF cholecalciferol (vitamin D3) 50 mcg (2,000 unit) capsule 50 mcg PO DAILY Qty: 90 3RF Vitron-C 65 mg iron- 125 mg tablet,delayed release (DR/EC) 1 tab PO BEDTIME Qty: 90 3RF Wegovy 0.25 mg/0.5 mL pen injector 0.25 mg subcut QWEEK Rx Instructions: administer weeks 1 through 4 of therapy Stand Alone Forms: Work/School Release Print Language: Lithuanian
[2025-06-05] MEDS: Lidocaine HCl 1 % 20 ML VIAL 10 ML INFILTRATI (00:15)
[2025-06-05 00:58] VITALS: BP 139/77; PULSE 85; RESP 16; TEMP 36.7; O2SAT 100
== END 2025-06-05 00:15 | disposition home or self-care (01) ==
PROVIDERS: Emergency Provider Emergency Medicine; PCP Nurse Practitioner Adult Health
DX: S61.313A Laceration without foreign body of left middle finger with damage to nail, initial encounter (principal); M79.642 Pain in left hand; E66.01 Morbid (severe) obesity due to excess calories; Z68.41 Body mass index [BMI] 40.0-44.9, adult; W26.0XXA Contact with knife, initial encounter; Y93.89 Activity, other specified; Y92.89 Other specified places as the place of occurrence of the external cause; Y99.8 Other external cause status; Z79.899 Other long term (current) drug therapy
CPT/HCPCS: 12001; 99284; J2003